=== PATIENT | female | born 1945 | race Caucasian/White ===

== ENCOUNTER 2016-06-09 09:48 | Inpatient (IN) | payer OTHER ==
[~2016-06-09] VITALS: Ht 165.1 cm; Wt 95.7 kg
[~2016-06-09 09:48] MED LIST: ASPI81TA28 PO; CALC500C70 PO; ERGO1CAP35 PO; EZET10TA38 PO; FAMO40TA6 PO; FMR25 PO; LISI-729 PO; MELO15TA3 PO; METF500T5 PO; [UNRECOGNIZED DRUG - OTHER]
[2016-06-09 11:20] VITALS: BP 151/85; PULSE 87; TEMP 36.7; O2SAT 96; Ht 165.1 cm; Wt 95.7 kg
[2016-06-09] MEDS ORDERED: NITROGLYCERIN 0.4 MG SL PER TAB CHARGE SL PRN (12:45)
[2016-06-09] MEDS ORDERED: MAGNESIUM HYDROXIDE SUSP 30 ML UDC PO PRN (12:45)
[2016-06-09] MEDS ORDERED: ALUMINUM/MAGNESIUM/SIMETH (MAALOX MAX) 30 ML UDC PO PRN (12:45)
[2016-06-09] MEDS ORDERED: ONDANSETRON INJ 2 MG/ML 2 ML VIAL IV PRN (12:45)
[2016-06-09] MEDS ORDERED: ACETAMINOPHEN 325 MG TAB PO PRN (12:45)
[2016-06-09] MEDS ORDERED: POLYETHYLENE (MIRALAX) 17 GM PACK PO PRN (12:45)
[2016-06-09] MEDS ORDERED: DEXTROSE 50% 50 ML SYR IV PRN (13:00)
[2016-06-09] MEDS ORDERED: GLUCOSE 40% GEL 15 GM TUBE PO PRN (13:00)
[2016-06-09] MEDS ORDERED: GLUCAGON FOR INJ 1 MG VIAL SQ PRN (13:00)
[2016-06-09] MEDS ORDERED: GLUCOSE 10 TABS/TUBE PO PRN (13:00)
[2016-06-09 13:43] LABS: HEMATOCRIT 39.9 % (37-47); MEAN CORPUSCULAR HEMOGLOBIN 29.1 pg (25-34); MEAN CORPUSCULAR HGB CONC 34.6 g/dl (32-36); MEAN PLATELET VOLUME 9.4 fL (7.4-10.4); PLATELET COUNT 178 K/uL (130-400); RED BLOOD COUNT 4.75 M/uL (4.2-5.4); WHITE BLOOD COUNT 6.16 K/uL (4.8-10.8)
[2016-06-09 14:07] LABS: BLOOD UREA NITROGEN 24 mg/dl (7-18); BUN/CREATININE RATIO 28.5 (10-20); CALCIUM 9.5 mg/dl (8.5-10.1); CARBON DIOXIDE 25 mmol/L (21-32); CHLORIDE 100 mmol/L (98-107); CREATININE 0.86 mg/dl (0.60-1.20); GLUCOSE 213 mg/dl (70-99); POTASSIUM 3.7 mmol/L (3.5-5.1); SODIUM 137 mmol/L (136-145)
[2016-06-09 14:26] LABS: CKMB/CK RATIO 2.8 (0-3.0)
--- NOTE | 2016-06-09 15:22 | History and Physical ---
History & Physical Date & Time of Service: Jun 09, 2016 at 15:18 Chief Complaint: Congestive Heart Failure, Nstemi Primary Care Physician: Jarocho Guadarrama M.D. History of Present Illness Source: patient, other ([facility] Records) Ms. Ramirez is a 70 y/o female with PMHx of HTN, HLD, T2DM, R Breast CA S/P R Mastectomy and Stem Cell Transplant, and RLL Lung Nodule who is a direct admission from [facility] after treatment for acute CHF and NSTEMI. Patient reports she has had [place] that has been ongoing for several months ( February) however symptoms worsened recently and she was evaluated. She was initially treated for ongoing URI symptoms with Augmentin however symptoms did not improve. Patient reports an outpatient stress test performed by Dr. Hoover on 06/04 with [facility] but is unsure of results. She reports that this SOB was exertional and relieved with rest. EMS was called and she was taken to [facility]. She took two 81 mg ASA prior to EMS and EMS treated her with NTG SL x 1. Per patient she felt almost complete relief after Lasix administration. She did not notice a difference with the NTG. She states "everything let loose" and her breathing improved. She currently feels at her baseline upon presentation to [facility]. Per [place] records: Troponins were trended revealing 1.47, 2.12, 1.83, 1.59, and 0.07. EKG significant for lateral T wave inversions but no evidence of ST elevations. CXR significant for vascular congestion and pulmonary edema with small L and tiny R pleural effusions (06/06). Repeat CXR (06/07) revealing improvement in congestion. BNP at 584. D-Dimer elevated at 520 and CTA performed without evidence of pulmonary embolism but notes interlobular septal thickening and increased pleural fluid and interval increase in upper pericardial fluid in prevascular region. Chest imaging confirmed presence of 12 mm RLL nodule that she follows with Dr. Peters for and just recently had this evaluated. She is noted to be hyperglycemic with A1c of 8.8. She reports PCP aware and plan to implement further intervention in future. Stress test results requested and information as follows: anterior and lateral wall ischemia with focal apical infarction with mixture of ischemia and focal infarct of inferior wall and recommends catheterization. She was initiated on a beta catarino, Plavix , and statin prior to arrival. Upon arrival to [facility]: Patient reports that she has been CP free. She feels that her breathing has markedly improved and feels at her baseline since institution of Lasix. Initial troponin on arrival of 0.553. CXR repeated without evidence of failure or pleural effusions. Family History Diabetes mellitus Hypertension Social History Smoking Status: Former Smoker Smokeless Tobacco Use: No Alcohol Use: none Drug Use: none Immunizations History of Influenza Vaccine: Unknown History of Tetanus Vaccine?: Yes History of Pneumococcal: Unknown History of Hepatitis B Vaccine: Unknown Multi-Drug Resistant Organisms History of MDRO: No Allergies Coded Allergies: No Known Allergies (Verified , 06/02/02) Home Medications Scheduled Aspirin (Aspirin Ec), 81 MG PO DAILY Calcium/Vitamin D (Os-Mirza 500 Plus D), 1,600 MG PO DAILY Ergocalciferol (Vitamin D Cap), 50,000 INTER.UNIT PO WK Ezetimibe/Simvastatin (Vytorin 10MG/20MG), 1 TAB PO QPM Famotidine (Pepcid), 40 MG PO QD L-Methylfol/Vitb2/Vitb6/Vitb12 (Metanx), 2 TABLETS QD@08 Letrozole (Femara), 2.5 MG PO QD@08 Meloxicam (Mobic), 15 MG PO DAILY Metformin Hcl Er (Glucophage Er), 500 MG PO TID Miscellaneous Medications Lisinopril (Prinivil), 5 MG PO Review of Systems Constitutional: No chills, No fever Eyes: No worsening of vision ENT: No nasal symptoms, No sore throat, No trouble swallowing Respiratory: + dyspnea on exertion (improved), No dyspnea at rest Cardiovascular: + chest pain (Resolved - midsternal pressure) Abdomen: No constipation, No diarrhea, No nausea, No pain, No vomiting Musculoskeletal: No calf pain, No swelling Genitourinary - Female: No dysuria Neurologic: No vertigo, No weakness Hematologic / Lymphatic: No abnormal bleeding/bruising, No clotting problems Integumentary: No rash Physical Exam Vital Signs Date Time Temp Pulse Resp B/P Pulse Ox O2 Delivery O2 Flow Rate FiO2 06/09/16 11:20 36.7 87 16 151/85 96 Room Air General Appearance: WD/WN, no apparent distress Head: normocephalic, atraumatic Eyes: sclerae normal ENT: hearing grossly normal Neck: supple, no JVD, trachea midline Respiratory/Chest: lungs clear, normal breath sounds, no respiratory distress, no accessory muscle use Cardiovascular: regular rate, rhythm, no gallop, no murmur Abdomen/GI: normal bowel sounds, non tender, soft Back: normal inspection, no CVA tenderness Extremities/Musculoskelatal: no calf tenderness, no pedal edema Neurologic/Psych: no motor/sensory deficits, alert, oriented x 3 Skin: normal color, warm/dry Diagnostics Laboratory Results Results Past 24 Hours Test 06/09/16 13:15 06/09/16 13:20 Range/Units Total Creatine Kinase 36 26-192 U/L Creatine Kinase MB 1.0 0.5-3.6 ng/ml Creatine Kinase MB Ratio 2.8 0-3.0 Troponin I 0.553 0-0.045 ng/ml White Blood Count 6.16 4.8-10.8 K/uL Red Blood Count 4.75 4.2-5.4 M/uL Hemoglobin 13.8 12.0-16.0 g/dL Hematocrit 39.9 37-47 % Mean Corpuscular Volume 84.0 80-100 fL Mean Corpuscular Hemoglobin 29.1 25-34 pg Mean Corpuscular Hemoglobin Concent 34.6 32-36 g/dl RDW Standard Deviation 40.4 36.4-46.3 fL RDW Coefficient of Variation 13.3 11.5-14.5 % Platelet Count 178 130-400 K/uL Mean Platelet Volume 9.4 7.4-10.4 fL Sodium Level 137 136-145 mmol/L Potassium Level 3.7 3.5-5.1 mmol/L Chloride Level 100 98-107 mmol/L Carbon Dioxide Level 25 21-32 mmol/L Anion Gap 12.0 3-11 mmol/L Blood Urea Nitrogen 24 7-18 mg/dl Creatinine 0.86 0.60-1.20 mg/dl Estimated GFR () 79.3 Estimated GFR (Non- 68.4 BUN/Creatinine Ratio 28.5 10-20 Random Glucose 213 70-99 mg/dl Calcium Level 9.5 8.5-10.1 mg/dl Impression Assessment and Plan Ms. Ramirez is a 70 y/o female with PMHx of HTN, HLD, T2DM, R Breast CA S/P R Mastectomy and Stem Cell Transplant, and RLL Lung Nodule who is a direct admission from [facility] after treatment for acute CHF and NSTEMI. Acute Congestive Heart Failure and NSTEMI and H/O HTN: No Documented H/O CHF - Appears acute CHF resulting from NSTEMI - was diuresed in [place] - CXR - image and report reviewed - no evidence of failure or pleural effusions - Requested outpatient stress by Dr. Hoover - report reviewed - EKG negative but nuclear imaging showing anterior and lateral wall ischemia with focal apical infarction and mixture of ischemia and focal infarct of inferior wall - Was receiving Lasix but will withhold further Lasix as exam without fluid overload - can initiate upon further evaluation - ASA 81 mg daily and Plavix 75 mg daily - Atorvastatin 40 mg daily - Carvedilol 3.125 mg BID and Lisinopril 10 mg daily - Trend cardiac enzymes - peaked at 2.12 but trending down -- Initial trop at 0.553 per our lab - Cardiology consulted - spoke with Dr. Amaya - heart catheterization? -- Will place NPO at midnight except medications T2DM: HbA1c 8.8 - Patient reports PCP is aware and is planning of making adjustments - Hold Metformin due to CTA in [place] and possible Cath - SSI R Breast CA S/P R Mastectomy: - Femara 2.5 mg daily - non-formulary and patient may take own med DVT Prophylaxis: - TEDs/SCDs Code Status: - FULL RESUSCITATION Disposition: - Possible catheterization Level of Care Telemetry Advanced Directives Existing Living Will: No Existing Power of Oleomargarine Maker: No Resuscitation Status FULL RESUSCITATION VTE Prophylaxis VTE Risk Assessment Done? Y/N: Yes Risk Level: Moderate Given or contraindicated: T.E.D. Stockings, SCD's Reviewed: Pt Seen/Exam by Me, RN Notes, HO Notes, Prior Records, Labs, EKG History I agree with PA note Ms. Ramirez is a 70 y/o female with PMHx of HTN, HLD, T2DM, R Breast CA S/P R Mastectomy and Stem Cell Transplant, and RLL Lung Nodule who is a direct admission from [facility] after treatment for acute CHF and NSTEMI. Constitutional: denies: chills Respiratory: negative: cough Cardiovascular: denies chest pain Gastrointestinal/Abdominal: negative: abdominal pain Genitourinary: negative discharge Skin: negative: change in color Neurological/Psych: negative: anxiety Hematologic/Lymphatic: negative: anemia General Appearance: WD/WN, no apparent distress Eye Exam: bilateral eye normal inspection Ears, Nose, Throat: hearing grossly normal Neck: non-tender Respiratory: chest non-tender, normal breath sounds Cardiovascular: no edema, no gallop Gastrointestinal: normal bowel sounds Extremities: normal range of motion Neurologic/Psychiatric: alert Skin Characteristics: normal color Assessment/Plan Ms. Ramirez is a 70 y/o female with PMHx of HTN, HLD, T2DM, R Breast CA S/P R Mastectomy and Stem Cell Transplant, and RLL Lung Nodule who is a direct admission from [facility] after treatment for acute CHF and NSTEMI. Acute Congestive Heart Failure and NSTEMI and hx HTN: No Documented hx CHF CXR - image and report reviewed - no evidence of failure or pleural effusions Requested outpatient stress by Dr. Hoover - report reviewed - EKG negative but nuclear imaging showing anterior and lateral wall ischemia with focal apical infarction and mixture of ischemia and focal infarct of inferior wall Noted chest discomfort improved after a dose of lasix cont ASA 81 mg daily and Plavix 75 mg daily cont Atorvastatin 40 mg daily cont Carvedilol 3.125 mg BID and Lisinopril 10 mg daily cont Trend cardiac enzymes, peaked at 2.12 but trending down, now 0.553 per our lab Cardiology consulted, spoke with Dr. Amaya, heart catheterization in am NPO at midnight except medications T2DM: HbA1c 8.8 Patient reports PCP is aware and is planning of making adjustments Hold Metformin due to CTA in [place] and possible Cath SSI Right Breast CA S/P R Mastectomy: cont Femara 2.5 mg daily - non-formulary and patient may take own med DVT Prophylaxis: TEDs/SCDs Code Status: FULL RESUSCITATION Disposition: Possible catheterization total time 50 min case discussed with KASSIE Paredes
--- NOTE | 2016-06-09 15:55 | DIAGNOSTIC IMAGING REPORT ---
CHEST 2 VIEWS ROUTINE CLINICAL HISTORY: CHF; Dyspnea COMPARISON STUDY: 05/13/2016 FINDINGS: Postthoracotomy changes are present on the left. There are left paramediastinal fibrotic changes. There is no failure. There is no acute parenchymal consolidation. Surgical clips project over the right axillary region. The patient appears be status post a prior right mastectomy. There are no pleural effusions. There are postsurgical changes of a left shoulder reverse total arthroplasty[ IMPRESSION: Postsurgical change. No acute findings. Electronically signed by: Vargas Peña M.D. 06/09/2016 3:54 PM Dictated Date/Time: 06/09/2016 3:51 PM
[2016-06-09 16:00] VITALS: BP 121/96; PULSE 82; TEMP 36.9; O2SAT 98
[2016-06-09] MEDS: FAMOTIDINE 20 MG TAB PO SCH (16:41)
[2016-06-09] MEDS: INSULIN ASPART 100 UNITS/ML 3 ML PEN SC SCH ×2 (16:44→21:15)
[2016-06-09] MEDS ORDERED: ALBUT/IPRATROP 3MG/0.5MG NEB 3 ML VIAL INH PRN (17:45)
--- NOTE | 2016-06-09 18:16 | ECHOCARDIOGRAM REPORT ---
*NOTICE TO RECEIVING CONSTITUTION PARTY AGENCY This information is strictly Confidential and protected under [place] law. [place] law prohibits you from making any further disclosure of this information unless further disclosure is expressly permitted by the written consent of the person to whom it pertains or is authorized by law. A general authorization for the release of medical or other information is not sufficient for this purpose. Hospital accepts no responsibility if the information is made available to any other person, INCLUDING THE PATIENT. Interpretation Summary * Name: TARUN TOMPKINS Study Date: 06/09/2016 03:46 PM BP: 151/85 mmHg * [facility] HR: 87 * : 1945 (M/d/yyy) Gender: Female Height: 65 in * Age: 70 yrs Ethnicity: CA Weight: 210 lb * Ordering Physician: Jazzmine Craft * Performed By: Soumya Matos * * Reason For Study: CHF * BSA: 2.0 m2 * Low normal overall left ventricular systolic function. * Apical akinesis. Anterolateral, inferopaical, and inferior hypokinesis. Mid - distal septal hypokinesis to akinesis. * Mild left atrial dilatation. * Mild aortic regurgitation. * Mild mitral regurgitation. * Trace tricuspid regurgitation. * The study was technically difficult. * -- Conclusions -- * Aortic valve sclerosis moderate, without significant aortic valvular stenosis. Procedure Details * A complete two-dimensional transthoracic echocardiogram was performed (2D, M-mode, Doppler and color flow Doppler). Left Ventricle * The left ventricle is normal in size. * Moderate left ventricular hypertrophy except for more disproportionate basal septal thickening. * Ejection Fraction = 50-55%. * A full diastolic examination was done with clinical findings of Class I diastolic dysfunction. * Left ventricular systolic function is low normal. * There is apical akinesis. * Mid - distal septal severe hypokinesis to akinesis. Inferoapical hypokinesis. Mild inferior hypokinesis. Anterolateral hypokinesis. Right Ventricle * The right ventricle is normal in size and function. * The right ventricular systolic function is normal as assessed by tricuspid annular plane systolic excursion (TAPSE) (normal >1.5 cm). Atria * The left atrium is mildly dilated. * Right atrium not well visualized. * No ASD detected; PFO is not assessed. Mitral Valve * There is moderate mitral annular calcification. * Calcified mitral apparatus. * There is mild mitral regurgitation. Tricuspid Valve * The tricuspid valve is not well visualized. * Right ventricular systolic pressure is normal. * There is trace tricuspid regurgitation. Aortic Valve * The aortic valve is not well visualized. * The aortic valve is trileaflet. * Aortic valve sclerosis moderate, without significant aortic valvular stenosis. * Aortic valve area was calculated at 1.8 cm\S\2 using the continuity equation. * Mild aortic regurgitation. Pulmonic Valve * The pulmonic valve is not well visualized. * There is no significant pulmonary regurgitation. Pericardium/Pleural * Small anterior pericardial effusion. * There are no echocardiographic indications of cardiac tamponade. Great Vessels * Normal inferior vena cava diameter and respiratory variation suggests normal central venous pressure. MMode 2D Measurements and Calculations IVSd 2.4 cm IVSs 2.2 cm LVIDd 3.6 cm LVIDs 2.6 cm LVPWd 1.8 cm LVPWs 1.9 cm IVS/LVPW 1.4 FS 29.0 % EDV(Teich) 54.5 ml ESV(Teich) 23.6 ml EF(Teich) 56.6 % EDV(cubed) 46.7 ml ESV(cubed) 16.7 ml EF(cubed) 64.2 % % IVS thick -7.32 % % LVPW thick 6.7 % LV mass(C)d 351.0 grams LV mass(C)dI 173.8 grams/m\S\2 LV mass(C)s 232.6 grams LV mass(C)sI 115.2 grams/m\S\2 SV(Teich) 30.9 ml SI(Teich) 15.3 ml/m\S\2 SV(cubed) 30.0 ml SI(cubed) 14.9 ml/m\S\2 EPSS 0.87 cm ACS 1.3 cm LA dimension 4.7 cm LVOT diam 2.1 cm LVOT area 3.5 cm\S\2 LVAd ap4 26.2 cm\S\2 LVLd ap4 7.9 cm EDV(MOD-sp4) 69.8 ml EDV(sp4-el) 73.4 ml LVAs ap4 16.0 cm\S\2 LVLs ap4 6.7 cm ESV(MOD-sp4) 31.6 ml ESV(sp4-el) 32.2 ml EF(MOD-sp4) 54.8 % EF(sp4-el) 56.2 % LVAd ap2 29.4 cm\S\2 LVLd ap2 8.0 cm EDV(MOD-sp2) 87.4 ml EDV(sp2-el) 91.2 ml LVAs ap2 18.7 cm\S\2 LVLs ap2 7.3 cm ESV(MOD-sp2) 38.8 ml ESV(sp2-el) 40.6 ml EF(MOD-sp2) 55.6 % EF(sp2-el) 55.5 % LVLd %diff 1.4 % EDV(MOD-bp) 78.4 ml LVLs %diff 8.2 % ESV(MOD-bp) 35.7 ml EF(MOD-bp) 54.4 % SV(MOD-sp4) 38.2 ml SI(MOD-sp4) 18.9 ml/m\S\2 SV(MOD-sp2) 48.5 ml SI(MOD-sp2) 24.0 ml/m\S\2 SV(MOD-bp) 42.7 ml SI(MOD-bp) 21.1 ml/m\S\2 SV(sp4-el) 41.3 ml SI(sp4-el) 20.4 ml/m\S\2 SV(sp2-el) 50.7 ml SI(sp2-el) 25.1 ml/m\S\2 Doppler Measurements and Calculations MV E max adán 84.0 cm/sec MV A max adán 124.0 cm/sec MV E/A 0.68 MV dec time 0.25 sec Ao V2 max 154.9 cm/sec Ao max PG 9.6 mmHg Ao max PG (full) 7.0 mmHg ALLAN(V,A) 1.8 cm\S\2 ALLAN(V,D) 1.8 cm\S\2 AI max adán 273.4 cm/sec AI max PG 32.2 mmHg AI dec slope 139.0 cm/sec\S\2 AI P1/2t 575.9 msec LV V1 max PG 2.6 mmHg LV V1 mean PG 1.2 mmHg LV V1 max 81.1 cm/sec LV V1 mean 49.4 cm/sec LV V1 VTI 16.2 cm MR max adán 391.1 cm/sec MR max PG 62.6 mmHg SV(LVOT) 57.3 ml SI(LVOT) 28.4 ml/m\S\2 PA V2 max 107.8 cm/sec PA max PG 4.7 mmHg TR max adán 240.5 cm/sec
[2016-06-09 18:20] LABS: CKMB/CK RATIO 2.7 (0-3.0)
[2016-06-09 20:00] VITALS: BP 115/66; PULSE 85; TEMP 36.7; O2SAT 94
[2016-06-09] MEDS: CARVEDILOL 3.125 MG TAB PO SCH (21:13)
--- NOTE | 2016-06-09 22:46 | CARDIOLOGY CONSULTATION ---
DATE OF CONSULTATION: 06/09/2016 PRIMARY PHYSICIAN: Jarocho Conrad M.D. ATTENDING AND REFERRING PHYSICIAN: Bridger Toth MD CONSULTATION: Rg Amaya MD HISTORY OF PRESENT ILLNESS: The patient was admitted to [facility] on 06/06/2016 with acute congestive heart failure. She received intravenous furosemide. Approximately 30 minutes after receiving furosemide, her dyspnea markedly improved and then resolved. The patient states that she had woken up that morning from sleep, feeling very short of breath and a sensation of severe retrosternal chest tightness. No associated diaphoresis or nausea. No radiation of the discomfort. The total duration of the discomfort was approximately 2 hours. The chest tightness resolved when her dyspnea resolved. This was following administration of intravenous furosemide. She states that since resolution on 06/07/2016, she has had no further dyspnea, orthopnea, PND, or chest tightness. The patient states that she has no prior history of any heart disease. She states that every year, she does get an acute bronchitis. She developed symptoms consistent with an acute bronchitis in March 2016. She states she received a course of oral prednisone. This had no significant effect on her symptoms. She states in April, she had a course of antibiotics with Augmentin. This helped her cough and symptoms of bronchitis. She had a productive cough at that time. In May, she started to notice worsening dyspnea. Normally, she has no dyspnea with her normal activities. She had gotten to develop dyspnea walking up only one flight of stairs. This would sometimes be associated with mild chest tightness. Because of these symptoms, she underwent both pulmonary function tests as well as a Lexiscan nuclear stress test. She does not know the results of pulmonary function tests. They are not available at the time of this dictation. She did undergo the Lexiscan on June 04. The report is available. It reports evidence of anterior, lateral, and inferior ischemia. Also, evidence of focal infarction in inferior wall and focal apical infarction. The left ventricular ejection fraction was calculated at 37%. After admission to [facility], the cardiac enzymes were elevated. The peak troponin I was 2.12. Her BNP was elevated at 584. A CT scan of the chest revealed evidence of congestive heart failure. There is no evidence of a pulmonary embolus. As stated above, she has had no further complaints of any dyspnea or chest discomfort after receiving the intravenous furosemide in the Emergency Department at [facility]. She was subsequently placed on oral furosemide. She denies any baseline orthopnea or PND. She usually sleeps with 2 pillows. No peripheral edema. She has not noted any significant weight gain over the past few weeks. No increased abdominal girth. She claims that she has a relatively low-sodium diet. CAD risk factors include hypertension, type 2 diabetes mellitus, and dyslipidemia. She smoked cigarettes for approximately 10 years from age 30 to age 40. She smoked up to 1/2 pack a day. There is no family history of premature coronary artery disease. PAST MEDICAL HISTORY: 1. Hypertension. 2. Dyslipidemia. 3. Type 2 diabetes mellitus. 4. Status post right mastectomy approximately 25 years ago. Metastatic disease to lungs approximately 5 years later. It was not accessible by surgery. She subsequently underwent chemotherapy followed by stem cell transplant. She also received adjuvant radiation therapy. She now has a 12-mm right lower lobe nodule, which is being followed by Dr. Peters of the [facility] at [facility]. PAST SURGICAL HISTORY: 1. Status post right mastectomy. 2. Status post repair of a left humeral fracture. 3. Status post bilateral cataract surgery. SOCIAL HISTORY: The patient is single. No children. She does not smoke cigarettes. Very rare use of alcohol. Approximately, 2 alcoholic beverages per year. FAMILY HISTORY: No family history of premature coronary artery disease. Her mother of cancer at age 55. Her father at approximately age 80 from unspecified heart disease. REVIEW OF SYSTEMS: 1. No current HEENT complaints other than farsightedness. 2. Occasional cough. 3. Good appetite. No abdominal pain or nausea. 4. No urinary complaints. 5. No cerebrovascular complaints. 6. No claudication-type complaints. 7. Chronic low back pain. Worse with prolonged walking. 8. No skin rash complaints. 9. No fevers or chills. CURRENT MEDICATIONS: Aspirin 81 mg daily, lisinopril 10 mg daily, clopidogrel 75 mg daily, atorvastatin 40 mg daily, letrozole 2.5 mg daily, carvedilol 3.125 mg b.i.d., famotidine 40 mg daily, NovoLog sliding scale insulin, and several p.r.n. medications. ALLERGIES AND ADVERSE DRUG REACTIONS: None. Specifically, no history of any contrast dye allergy. PHYSICAL EXAMINATION: GENERAL: The patient is sitting up at her bedside. No distress. VITAL SIGNS: Vital signs this afternoon were oral temperature 36.9, pulse 82, blood pressure 121/96, pulse oximetry in room air 98%. NECK: No jugular venous distension. Carotids, 2/2 bilaterally. Normal upstroke. No bruits. HEAD: Normal. EYES: Pupils equal and round. Anicteric. Conjunctivae normal. LUNGS: Normal respiratory effort. Clear. No rales or wheezes. HEART: PMI normal. No lifts or heaves. Regular rate and rhythm. S1, S2 normal. A 2/6 systolic murmur at second intercostal space in the left lower sternal border. No diastolic murmur or rub. ABDOMEN: Soft. Nontender. No palpable masses or organomegaly. No bruits. EXTREMITIES: No pretibial edema. No cyanosis or clubbing. NEUROLOGIC: Alert and oriented x3. Motor grossly intact. PSYCHIATRIC: Affect is normal. PULSES: Distal pulses strongly palpable in all extremities. DATA: Electrocardiogram reveals normal sinus rhythm, inferior infarct, anterior infarct, T-wave inversions in leads 1, aVL, V2-V6, consistent with ischemia. Compared to a prior electrocardiogram performed in April of 1997 at [facility], criteria for anterior and inferior AR now present. T-inversion now present. Chest x-ray performed today reveals no evidence of heart failure. No new infiltrates. No pleural effusions. LABORATORY DATA: Reveal WBC 6.16, hemoglobin 13.8, hematocrit 39.9, platelet count 178. Metabolic profile was sodium 137, potassium 3.7, chloride 100, carbon dioxide 25, BUN 24, creatinine 0.96, random glucose 213. CK total 36 with MB of 1.0. Troponin I 0.553. Repeat CK total 37 with MB of 1.0. Repeat troponin I is pending. ASSESSMENT: 1. Status post non-ST elevation myocardial infarction. 2. Status post episode of acute congestive heart failure. She has low normal overall left ventricular systolic function on echo today. Ejection fraction 50%-55%. The congestive heart failure is likely secondary to acute diastolic heart failure. She has evidence of LV diastolic dysfunction on echo. She has significant left ventricular hypertrophy. 3. Her CT scan of the chest performed at [facility] revealed marked coronary artery calcifications. She has evidence of both inferior and anterior AR on her electrocardiogram. Her echo shows wall motion abnormalities in the apex, inferior apex, anteroseptal, and anterolateral segments. Her recent Lexiscan showed evidence of multivessel coronary artery ischemia. The patient likely has significant underlying coronary artery disease. 4. No current evidence, on exam, of congestive heart failure. 5. No cerebrovascular or peripheral vascular complaints. 6. Prerenal azotemia, secondary to recent diuresis. RECOMMENDATIONS: 1. Diagnostic cardiac catheterization on June 10. We will attempt to perform this via right radial artery access. The procedure, risk, benefits, and alternatives of cardiac catheterization and coronary intervention were extensively discussed with the patient. She is agreeable to undergoing the procedure. She is aware of the nature of the [facility] PCI program with offsite CABG surgical backup. 2. N.p.o. after 12:00 midnight tonight. We will give her low dose intravenous fluids overnight to maintain hydration. 3. Hold clopidogrel in a.m. The patient may have coronary artery disease, which requires CABG surgery. It is preferable that clopidogrel be held at least 5 days prior to undergoing non-emergent CABG surgery. 4. Continue carvedilol and lisinopril. 5. Would increase atorvastatin to 80 mg daily. 6. Continue aspirin. Thank you for asking me to see this patient in cardiology consultation.
[2016-06-09 23:44] LABS: CKMB/CK RATIO 2.7 (0-3.0)
[2016-06-09] MEDS: SODIUM CHLORIDE 0.9% 1000ML 1,000 ML IV SCH (23:52)
[2016-06-10] VITALS (36 sets, daily range): BP systolic 83–140; BP diastolic 42–83; PULSE 63–99; TEMP 36.7–37; O2SAT 91–99
[2016-06-10 05:35] LABS: BASO % 0.2 %; BASO ABS # 0.01 K/uL (0-0.2); COMPLETE YES; EOS % 1.5 %; HEMATOCRIT 39.1 % (37-47); IG% 0.3 %; LYMPH ABS # 1.58 K/uL (1.2-3.4); MEAN CELL VOLUME 84.6 fL (80-100); MEAN CORPUSCULAR HGB CONC 34.3 g/dl (32-36); MEAN PLATELET VOLUME 9.2 fL (7.4-10.4); MONO % 8.2 %; NEUT % 62.8 %; PLATELET COUNT 157 K/uL (130-400); RED BLOOD COUNT 4.62 M/uL (4.2-5.4); WHITE BLOOD COUNT 5.85 K/uL (4.8-10.8)
[2016-06-10 05:46] LABS: PROTHROMBIN TIME (PATIENT) 11.2 SECONDS (9.0-12.0)
[2016-06-10 06:01] LABS: BUN/CREATININE RATIO 25.3 (10-20); CALCIUM 8.6 mg/dl (8.5-10.1); CREATININE 0.94 mg/dl (0.60-1.20); POTASSIUM 3.7 mmol/L (3.5-5.1)
--- NOTE | 2016-06-10 08:05 | Clinical Documentation Query ---
Virgil ANGELIKAMARGO : CLINICAL DOCUMENTATION QUERY Patient is a 70 year old female admitted for treatment of acute CHF and NSTEMI. Echocardiogram demonstrated a low normal left ventricular systolic function with evidence of diastolic dysfunction. In future progress notes, please explicitly specify the type of CHF experienced by your patient as this directly affects DRG assignment. She was treated with IV Lasix with improvement in her shortness of breath and chest tightness, is being monitored on telemetry, and is to undergo cardiac catheterization this a.m. In your clinical opinion is this patient being managed for: ( x ) Acute diastolic congestive heart failure ( ) Other explanation of clinical findings (Please Explain) ( ) Unable to determine (Please Define) ( ) Need to Discuss ( ) Not Agree The medical record reflects the following clinical findings, treatment, and risk factors. Clinical Indicators: As above Treatment:She was treated with IV Lasix with improvement in her shortness of breath and chest tightness, is being monitored on telemetry, and is to undergo cardiac catheterization this a.m. Risk Factors: Hypertension, NSTEMI, likely CAD Please clarify and document your clinical opinion in the progress notes and discharge summary. Terms such as "probable", "suspected", "likely", "questionable", "possible", or "still to be ruled out" are acceptable. IF IN AGREEMENT, YOU MUST DOCUMENT ABOVE DIAGNOSTIC STATEMENT IN DAILY PROGRESS NOTES AND DISCHARGE SUMMARY. This document is not part of the patient's record. Thank You, Christiano Joel, CECELIA [phone]
[2016-06-10] MEDS: ASPIRIN 81 MG ECTAB PO SCH (08:49)
[2016-06-10] MEDS: FAMOTIDINE 20 MG TAB PO SCH (08:50)
[2016-06-10] MEDS: LETROZOLE 2.5 MG TAB PO SCH (08:50)
[2016-06-10] MEDS: LISINOPRIL 10 MG TAB PO SCH (08:50)
[2016-06-10] MEDS: ATORVASTATIN 40 MG TAB PO SCH (08:50)
[2016-06-10] MEDS: CARVEDILOL 3.125 MG TAB PO SCH ×2 (08:50→20:37)
[2016-06-10] MEDS: INSULIN ASPART 100 UNITS/ML 3 ML PEN SC SCH ×4 (08:55→21:36)
[2016-06-10] MEDS ORDERED: ATORVASTATIN 40 MG TAB PO SCH (09:00)
[2016-06-10] MEDS ORDERED: CLOPIDOGREL BISULFATE 75 MG TAB PO SCH (09:00)
--- NOTE | 2016-06-10 11:48 | Procedure Note ---
Pre-Mod Sedation Assessment General Date of Moderate Sedation: Jun 10, 2016. Vital Signs: Vital Signs Past 12 Hours Date Time Temp Pulse Resp B/P Pulse Ox O2 Delivery O2 Flow Rate FiO2 06/10/16 08:00 97 Room Air 06/10/16 08:00 63 18 129/83 93 Room Air 06/10/16 04:00 Room Air 06/10/16 04:00 36.7 75 18 123/64 98 Room Air 06/10/16 00:01 Room Air 06/10/16 00:01 36.8 86 22 83/60 98 Room Air 98/42 Review Cardiovascular: regular rate, rhythm, no edema, normal peripheral pulses, + systolic murmur Abdomen: normal bowel sounds, non tender, soft Lungs: lungs clear Pre-Sedation Airway Assessment Oral Cavity: WNL Able to Visualize Vocal Cords: No Short Thick Neck: No Hx of Sleep Apnea: No Smoking Status: Former Smoker Mallampati Classification: Class III ASA Classification: Class II Procedure Planning Contraindications-for Mod Sed: None Yes Notes The planned sedation has been discussed with the patient and consent obtained. I have identified the patient, determined the appropriateness of sedation and have assessed the patient immediately prior to the procedure. All medicine(s) and interventions are by my order.
[2016-06-10] MEDS ORDERED: NiCARDipine HCL INJ 2.5 MG/ML 10 ML AMP ONE (11:51)
[2016-06-10] MEDS ORDERED: FENTANYL CITRATE INJ 50 MCG/1 ML 2 ML VIAL ONE (11:52)
[2016-06-10] MEDS ORDERED: NITROGLYCERIN/D5W 100MCG/ML 20ML SYR ONE (11:52)
[2016-06-10] MEDS ORDERED: MIDAZOLAM HCL 1 MG/ML 2ML VIAL ONE (11:52)
[2016-06-10] MEDS ORDERED: HEPARIN SOD (PORCINE) 1000 UNIT/ML 10 ML VIAL ONE (11:54)
[2016-06-10] MEDS ORDERED: LIDOCAINE HCL 1% 20 ML VIAL ONE (12:57)
[2016-06-10] MEDS ORDERED: LIDOCAINE/EPINEPHRINE 1% 20 ML VIAL ONE (13:02)
--- NOTE | 2016-06-10 13:43 | Progress Note ---
Subjective Date of Service: Jun 10, 2016. (Jazzmine Craft PA-C) Date of Service: 06/10/16 denies complains, no cp, no sob, had cath today (Bridger Toth MD) Subjective Pt evaluation today including: conversation w/ patient, physical exam, chart review, lab review, review of studies, review of inpatient medication list Patient seen and evaluated. No acute events overnight. Trops trending down. Patient is resting in bed. Plan for catheterization today. Patient is nervous about procedure. No further CP or SOB reported. Verbalizes no other complaints at this time. (Jazzmine Craft PA-C) Pt evaluation today including: conversation w/ patient, physical exam, chart review, review of studies, review of inpatient medication list (Bridger Toth MD) Review of Systems Constitutional: No chills, No fever Respiratory: + cough, No shortness of breath Cardiac: No chest pain, No palpitations Abdomen: No constipation, No diarrhea, No nausea, No pain, No vomiting Female : No dysuria Skin: No new/changing skin lesions, No rash (Jazzmine Craft PA-C) Constitutional: No fever ENT: No hearing loss Respiratory: No cough Cardiac: No chest pain Abdomen: No pain Female : No dysuria Neurologic: No memory loss Psychiatric: No depression symptoms Endo: No fatigue (Bridger Toth MD) Medications Current Inpatient Medications Medications (Trade) Dose Ordered Sig/Jaziel Route Start Time Stop Time Status Last Admin Dose Admin Acetaminophen (Tylenol Tab) 650 mg Q4H PRN PO 06/09/16 12:45 07/09/16 12:44 Al Hydrox/Mg Hydrox/Simethicone (Maalox Max Susp) 15 ml Q4H PRN PO 06/09/16 12:45 07/09/16 12:44 Magnesium Hydroxide (Milk Of Magnesia Susp) 30 ml Q12H PRN PO 06/09/16 12:45 07/09/16 12:44 Ondansetron HCl (Zofran Inj) 4 mg Q6H PRN IV 06/09/16 12:45 07/09/16 12:44 Nitroglycerin (Nitrostat Tab) 0.4 mg UD PRN SL 06/09/16 12:45 07/09/16 12:44 Polyethylene (Miralax Powder Packet) 17 gm DAILY PRN PO 06/09/16 12:45 07/09/16 12:44 Aspirin (Ecotrin Tab) 81 mg DAILY PO 06/10/16 09:00 07/10/16 08:59 06/10/16 08:49 81 MG Famotidine (Pepcid Tab) 40 mg DAILY PO 06/09/16 13:00 07/09/16 12:59 06/10/16 08:50 40 MG Lisinopril (Zestril Tab) 10 mg DAILY PO 06/10/16 09:00 07/10/16 08:59 06/10/16 08:50 10 MG Insulin Aspart (novoLOG ASPART) SLIDING SCALE G... ACHS SC 06/09/16 16:00 07/09/16 15:59 06/10/16 08:55 2 UNITS Carvedilol (Coreg Tab) 3.125 mg BID PO 06/09/16 21:00 07/09/16 20:59 06/10/16 08:50 3.125 MG Glucose (Glucose 40% Gel) 15-30 GRAMS 15 GRAMS... UD PRN PO 06/09/16 13:00 07/09/16 12:59 Glucose (Glucose Chew Tab) 4-8 Tablets 4 Tabl... UD PRN PO 06/09/16 13:00 07/09/16 12:59 Dextrose (Dextrose 50% 50ML Syringe) 25-50ML OF 50% DW IV FOR... UD PRN IV 06/09/16 13:00 07/09/16 12:59 Glucagon (Glucagon Inj) 1 mg UD PRN SQ 06/09/16 13:00 07/09/16 12:59 Letrozole (Femara Tab) 2.5 mg DAILY PO 06/10/16 09:00 07/10/16 08:59 06/10/16 08:50 2.5 MG Albuterol/ Ipratropium 3 ml 3 ml Q2H PRN INH 06/09/16 17:45 07/09/16 17:44 Sodium Chloride (Nss 1000ml) 1,000 ml @ 75 mls/hr [id number] IV 06/10/16 00:30 07/10/16 00:29 06/09/16 23:52 75 MLS/HR Atorvastatin Calcium (Lipitor Tab) 80 mg QAM PO 06/10/16 09:00 07/10/16 08:59 06/10/16 08:50 80 MG (Jazzmine Craft, HAILEE) Current Inpatient Medications Medications (Trade) Dose Ordered Sig/Jaziel Route Start Time Stop Time Status Last Admin Dose Admin Al Hydrox/Mg Hydrox/Simethicone (Maalox Max Susp) 15 ml Q4H PRN PO 06/09/16 12:45 07/09/16 12:44 Magnesium Hydroxide (Milk Of Magnesia Susp) 30 ml Q12H PRN PO 06/09/16 12:45 07/09/16 12:44 Nitroglycerin (Nitrostat Tab) 0.4 mg UD PRN SL 06/09/16 12:45 07/09/16 12:44 Polyethylene (Miralax Powder Packet) 17 gm DAILY PRN PO 06/09/16 12:45 07/09/16 12:44 Aspirin (Ecotrin Tab) 81 mg DAILY PO 06/10/16 09:00 07/10/16 08:59 06/10/16 08:49 81 MG Famotidine (Pepcid Tab) 40 mg DAILY PO 06/09/16 13:00 07/09/16 12:59 06/10/16 08:50 40 MG Lisinopril (Zestril Tab) 10 mg DAILY PO 06/10/16 09:00 07/10/16 08:59 06/10/16 08:50 10 MG Insulin Aspart (novoLOG ASPART) SLIDING SCALE G... ACHS SC 06/09/16 16:00 07/09/16 15:59 06/10/16 16:36 2 UNITS Carvedilol (Coreg Tab) 3.125 mg BID PO 06/09/16 21:00 07/09/16 20:59 06/10/16 08:50 3.125 MG Glucose (Glucose 40% Gel) 15-30 GRAMS 15 GRAMS... UD PRN PO 06/09/16 13:00 07/09/16 12:59 Glucose (Glucose Chew Tab) 4-8 Tablets 4 Tabl... UD PRN PO 06/09/16 13:00 07/09/16 12:59 Dextrose (Dextrose 50% 50ML Syringe) 25-50ML OF 50% DW IV FOR... UD PRN IV 06/09/16 13:00 07/09/16 12:59 Glucagon (Glucagon Inj) 1 mg UD PRN SQ 06/09/16 13:00 07/09/16 12:59 Letrozole (Femara Tab) 2.5 mg DAILY PO 06/10/16 09:00 07/10/16 08:59 06/10/16 08:50 2.5 MG Albuterol/ Ipratropium 3 ml 3 ml Q2H PRN INH 06/09/16 17:45 07/09/16 17:44 Sodium Chloride (Nss 1000ml) 1,000 ml @ 75 mls/hr [id number] IV 06/10/16 00:30 07/10/16 00:29 06/10/16 13:50 75 MLS/HR Atorvastatin Calcium (Lipitor Tab) 80 mg QAM PO 06/10/16 09:00 07/10/16 08:59 06/10/16 08:50 80 MG Acetaminophen 650 mg 650 mg Q4H PRN PO 06/10/16 14:30 07/10/16 14:29 Sodium Chloride (Nss 1000ml) 250 ml @ 999 mls/hr Q16M PRN IV 06/10/16 14:21 07/10/16 14:20 Atropine Sulfate (Atropine Sulfate 0.1MG/Ml Inj) 0.6 mg PRN PRN IV 06/10/16 14:30 07/10/16 14:29 Ondansetron HCl (Zofran Inj) 4 mg Q6H PRN IV 06/10/16 14:30 07/10/16 14:29 (Bridger Toth MD) Objective Vital Signs Date Time Temp Pulse Resp B/P Pulse Ox O2 Delivery O2 Flow Rate FiO2 06/10/16 08:00 97 Room Air 06/10/16 08:00 63 18 129/83 93 Room Air 06/10/16 04:00 Room Air 06/10/16 04:00 36.7 75 18 123/64 98 Room Air 06/10/16 00:01 Room Air 06/10/16 00:01 36.8 86 22 83/60 98 Room Air 98/42 06/09/16 20:00 36.7 85 18 115/66 94 Room Air 06/09/16 20:00 Room Air 06/09/16 16:00 Room Air 06/09/16 16:00 36.9 82 16 121/96 98 Room Air (Jazzmine Craft PA-C) Physical Exam General Appearance: WD/WN, no apparent distress Eyes: sclerae normal ENT: hearing grossly normal Neck: supple, no JVD, trachea midline Respiratory/Chest: lungs clear, normal breath sounds, no respiratory distress, no accessory muscle use Cardiovascular: regular rate, rhythm, no gallop, no murmur Abdomen: normal bowel sounds, non tender, soft Extremities: no pedal edema, no calf tenderness Neurologic/Psychiatric: alert, oriented x 3 Skin: normal color, warm/dry (Jazzmine Craft PA-C) General Appearance: WD/WN, no apparent distress Eyes: normal inspection, EOMI ENT: hearing grossly normal, pharynx normal Neck: supple, no JVD Respiratory/Chest: lungs clear, normal breath sounds Cardiovascular: no edema, no JVD Abdomen: non tender, soft Extremities: non-tender, no pedal edema Neurologic/Psychiatric: alert Skin: warm/dry (Bridger Toth MD) Laboratory Results Last 24 Hours Test 06/09/16 16:34 06/09/16 17:19 06/09/16 20:55 06/09/16 22:54 Bedside Glucose 246 mg/dl 249 mg/dl Total Creatine Kinase 37 U/L 33 U/L Creatine Kinase MB 1.0 ng/ml 0.9 ng/ml Creatine Kinase MB Ratio 2.7 2.7 Troponin I 0.483 ng/ml 0.488 ng/ml Test 06/10/16 05:18 06/10/16 11:31 White Blood Count 5.85 K/uL Red Blood Count 4.62 M/uL Hemoglobin 13.4 g/dL Hematocrit 39.1 % Mean Corpuscular Volume 84.6 fL Mean Corpuscular Hemoglobin 29.0 pg Mean Corpuscular Hemoglobin Concent 34.3 g/dl Platelet Count 157 K/uL Mean Platelet Volume 9.2 fL Neutrophils (%) (Auto) 62.8 % Lymphocytes (%) (Auto) 27.0 % Monocytes (%) (Auto) 8.2 % Eosinophils (%) (Auto) 1.5 % Basophils (%) (Auto) 0.2 % Neutrophils # (Auto) 3.67 K/uL Lymphocytes # (Auto) 1.58 K/uL Monocytes # (Auto) 0.48 K/uL Eosinophils # (Auto) 0.09 K/uL Basophils # (Auto) 0.01 K/uL RDW Standard Deviation 40.8 fL RDW Coefficient of Variation 13.3 % Immature Granulocyte % (Auto) 0.3 % Immature Granulocyte # (Auto) 0.02 K/uL Prothrombin Time 11.2 SECONDS Prothromb Time International Ratio 1.0 Activated Partial Thromboplast Time 25.0 SECONDS Partial Thromboplastin Ratio 1.0 Sodium Level 139 mmol/L Potassium Level 3.7 mmol/L Chloride Level 103 mmol/L Carbon Dioxide Level 27 mmol/L Anion Gap 9.0 mmol/L Blood Urea Nitrogen 24 mg/dl Creatinine 0.94 mg/dl Est Creatinine Clear Calc Drug Dose 63.8 ml/min Estimated GFR () 71.2 Estimated GFR (Non- 61.5 BUN/Creatinine Ratio 25.3 Random Glucose 214 mg/dl Calcium Level 8.6 mg/dl Bedside Glucose 216 mg/dl (Jazzmine Craft PA-C) Assessment and Plan Ms. Ramirez is a 70 y/o female with PMHx of HTN, HLD, T2DM, R Breast CA S/P R Mastectomy and Stem Cell Transplant, and RLL Lung Nodule who is a direct admission from [facility] after treatment for acute CHF and NSTEMI. Acute Diastolic Congestive Heart Failure and NSTEMI and H/O HTN: No Documented H /O CHF - Appears acute CHF resulting from NSTEMI - was diuresed in [place] with now further complaints of SOB or CP - Will continue to hold further Lasix administration - will implement if needed - ASA 81 mg daily - Atorvastatin 80 mg daily - Carvedilol 3.125 mg BID and Lisinopril 10 mg daily - Cardiology following - catheterization for today T2DM: HbA1c 8.8 - Patient reports PCP is aware and is planning of making adjustments - Hold Metformin due to CTA in [place] and possible Cath - SSI R Breast CA S/P R Mastectomy: - Femara 2.5 mg daily - non-formulary and patient may take own med DVT Prophylaxis: - TEDs/SCDs Code Status: - FULL RESUSCITATION Disposition: - Catheterization today (Jazzmine Craft PADamianC) Ms. Ramirez is a 70 y/o female with PMHx of HTN, HLD, T2DM, R Breast CA S/P R Mastectomy and Stem Cell Transplant, and RLL Lung Nodule who is a direct admission from [facility] after treatment for acute CHF and NSTEMI. Acute Diastolic Congestive Heart Failure and NSTEMI and hx HTN: No Documented hx CHF Appears acute CHF resulting from NSTEMI ASA 81 mg daily Atorvastatin 80 mg daily Carvedilol 3.125 mg BID and Lisinopril 10 mg daily Cardiology following s/p catheterization, severe CAD, may need CABG, however due to the nodule, will need oncology evaluation to justify need of CABG in case if this is cancer consult dr Peters T2DM: HbA1c 8.8 Patient reports PCP is aware and is planning of making adjustments Hold Metformin due to CTA in [place] and possible Cath cont SSI R Breast CA S/P R Mastectomy: cont Femara 2.5 mg daily, non-formulary and patient may take own med DVT Prophylaxis: TEDs/SCDs Code Status: FULL RESUSCITATION Disposition: may need CABG (Bridger Toth MD)
[2016-06-10] MEDS: SODIUM CHLORIDE 0.9% 1000ML 1,000 ML IV SCH (13:50)
[2016-06-10] MEDS ORDERED: ATROPINE SULFATE 0.1 MG/ML 10 ML SYR ONE (14:05)
[2016-06-10] MEDS ORDERED: SODIUM CHLORIDE 0.9% 1000ML 250 ML IV PRN (14:21)
--- NOTE | 2016-06-10 14:21 | Procedure Note ---
Post-Mod Sedation Assessment General Date of Moderate Sedation Jun 10, 2016. Vital Signs: Vital Signs Past 12 Hours Date Time Temp Pulse Resp B/P Pulse Ox O2 Delivery O2 Flow Rate FiO2 06/10/16 14:10 82 18 101/53 97 Room Air 06/10/16 14:05 49 18 77/45 95 Room Air 06/10/16 14:00 73 18 134/61 95 Room Air 06/10/16 13:55 75 18 141/69 96 Room Air 06/10/16 13:50 74 18 141/75 96 Room Air 06/10/16 13:45 78 18 142/70 97 Room Air 06/10/16 13:40 76 18 130/70 99 Nasal Cannula 4 06/10/16 08:00 97 Room Air 06/10/16 08:00 63 18 129/83 93 Room Air 06/10/16 04:00 Room Air 06/10/16 04:00 36.7 75 18 123/64 98 Room Air Review - Discharge Criteria Vital Signs Stable: Yes Alert/Oriented/Conversant: Yes Returned to Baseline Mental St: Yes Nausea Absent/Minimal: Yes Pain/Discomfort/Absent/Minimal: Yes Normal/Baseline Respirations: Yes Active Bleeding?: No Pt Received D/C Instructions: N/A Prescriptions Given: None Specific Proced. D/C Criteria Distal Pulses Present (Cardiac: Yes Groin site assessed-Card Cath: Yes Voided Prior To Discharge: No Discharged Patients Adult Escort/Transportation: N/A
[2016-06-10] MEDS ORDERED: ATROPINE SULFATE 0.1 MG/ML 5ML SYR IV PRN (14:30)
[2016-06-10] MEDS ORDERED: ACETAMINOPHEN 325 MG TAB PO PRN (14:30)
[2016-06-10] MEDS ORDERED: ONDANSETRON INJ 2 MG/ML 2 ML VIAL IV PRN (14:30)
--- NOTE | 2016-06-10 16:09 | Cardiac Catheterization ---
Procedure Note Procedure Date Jun 10, 2016. Pre-Procedure Diagnosis Non STEMI, Acute Coronary Syndrome, Angina, Positive Stress Test, CHF, Cardiomyopathy AUC Score 8 Post-Procedure Diagnosis Severe CAD Procedure(s) Performed Coronary Angiography, Left Heart Cath, LV Angiography, Femoral Artery Angiography, procedure (Right subclavian artery angiography) Screen Printing Stencil Preparer Dr. Amaya Study Abroad Advisor(s) ALETHA Villalobos Estimated Blood Loss 25 ml Medication(s) Atropine, Fentanyl, Heparin, Nicardipine (Intra-arterial), Versed, Lidocaine 1% Summary of Findings Clinical indications: Worsening anginal and anginal equivalent symptoms for several weeks. Lexiscan pharmacologic stress test June 04, 2016 with evidence of 3 vessel coronary artery disease. Acute congestive heart failure June 06, 2016. Troponin I elevated after the episode. Electrocardiogram with evidence of inferior and anterior myocardial infarction. Transfer from [facility] to [facility] June 09 for further cardiac care as well as cardiac catheterization. Echocardiogram at [facility] June 09 with apical akinesis. Mid to distal septal hypokinesis - akinesis, inferoapical hypokinesis, anterolateral hypokinesis, and inferior hypokinesis. Left ventricular ejection fraction approximately 50 percent. Mild aortic and mitral regurgitation. CAD risk factors include hypertension, dyslipidemia, and type 2 diabetes mellitus. The patient has a history of breast cancer. Status post right mastectomy approximately 25 years ago. Metastatic disease to lung 20 years ago treated with chemotherapy, his stem cell transplant, and radiation therapy. On a recent chest CT scan there was a right lower lobe nodule. This is currently in the process of being evaluated. Catheterization site: The right radial artery was 1st accessed using micropuncture technique. The guidewire would not advance past the proximal radial artery. A luge coronary wire would also not advance past this location. Hemostasis was then obtained the right radial access site. The right ulnar artery was then accessed using a micro puncture technique. A 6 [place] Helenian slender glide sheath was inserted into the ulnar artery. The guidewire easily advanced to the aortic root. However, 4 [facility] Helenian, 5 [facility] Helenian, and 6 [facility] Helenian brachial 3.5 diagnostic catheters would not advanced from the right subclavian artery and the right innominate artery into the ascending aorta. this was over both a standard 0.035 J-tip guidewire as well as a stiff 0.035 J tipped Glidewire. The left ulnar artery sheath was secured in place. The right femoral artery was then accessed under ultrasound guidance. A 5 [facility] Helenian sheath was then inserted. Hemostasis: Manual pressure at right radial arterial access site. Terumo TR band at right ulnar arterial access site. Manual pressure at right femoral arterial access site. Catheters: 5 [facility] Helenian JL4, JR4, and pigtail catheters for coronary angiography and left heart catheterization. Complications: No complications during the procedure. After manual pressure at the right femoral catheterization site was completed and hemostasis documented the patient developed asymptomatic bradycardia with sinus rates in the 40s and asymptomatic hypotension with systolic pressures in the 50s. She was given 0.5 milligrams of intravenous atropine and a 250 milliliter bolus of normal saline. Her heart rate increased into the 80s. Her systolic blood pressure increased into the low 100s. She remained asymptomatic. There was no evidence of bleeding at the right femoral catheterization site. findings: Fluoroscopy revealed extensive coronary calcifications. The coronary circulation was right dominant. The left main coronary artery was a large caliber vessel with a 50-70 percent ostial stenosis and a 50-60 percent eccentric mid stenosis. left main gave rise to large caliber left anterior descending left circumflex coronary arteries. The proximal and mid LAD were extensively calcified and diffusely diseased. The proximal LAD had a 30 percent stenosis then followed by a long eccentric 50 - 70 percent stenosis. The proximal LAD gave rise to a small caliber diagonal artery which had a total ostial stenosis. There was [id number] collateral flow to the diagonal from the left circumflex marginal arteries. After the diagonal the mid LAD had a 30-50 percent stenosis then followed by an 80-90 percent stenosis. The remainder of the mid and distal LAD had diffuse atherosclerotic disease with 0- 10 percent luminal diameter narrowing. The mid and distal LAD after the diagonal was of small caliber. The proximal left circumflex had a 50 percent stenosis. The mid circumflex had a 10-20 percent stenosis. The mid circumflex then gave rise to a long medium caliber bifurcating marginal artery which had a 70 percent proximal stenosis. The mid segment of the marginal had a 10-20 percent stenosis. After the marginal the circumflex became a small caliber vessel. It then gave rise to a long small caliber 2nd marginal artery which had no obstructive disease. After the 2nd marginal the mid left circumflex had diffuse mild atherosclerotic disease with 20-30 percent luminal diameter narrowing. The distal circumflex gave rise to a long small caliber posterolateral artery and then a very small caliber 2nd posterolateral artery. These vessels had minor luminal irregularities. Collateral flow was present from the left coronary artery via septal perforating branches in the distal left circumflex to the distal right coronary artery and its PDA branch. The right coronary artery was a small to medium caliber vessel. Ostial 50 percent stenosis cuff. Proximal diffuse tenderness 30 percent stenoses. Early mid RCA with 80 percent stenosis. The early distal RCA with 90 percent stenosis. Subtotal ostial PDA stenosis. The distal RCA gave rise to a very small caliber right posterolateral artery which was diffusely diseased. Left ventricular angiography performed from the 30 degree right anterior oblique projection with a hand injection of contrast dye revealed the posterior basal and anterior basal segments to contract normally. The diaphragmatic and anterolateral segments were hypokinetic. The apex was akinetic. LV ejection fraction 45 percent. No mitral regurgitation noted. Right subclavian artery angiography revealed the right internal mammary artery to be widely patent. The right common carotid artery and left common carotid artery were visualized. No obstructive disease noted. Tortuous right innominate artery. right femoral artery angiography revealed sheath to be present in the right superficial femoral artery. Plan: The patient is diabetic and has left ventricular systolic dysfunction. She has left main and three-vessel coronary artery disease. Based on these clinical variables CABG surgery would be indicated. However, the patient has a recently diagnosed right lower lobe lung nodule. The etiology of this nodule has not as yet been determined. Metastatic or primary cancer would need to be assessed before consideration of performing CABG surgery. She will remain on medical therapy for her coronary artery disease and left ventricular systolic dysfunction. Hemodynamics Rest Ao: 128/57/86 mm Hg Final Ao: 135/60/91 mm Hg LV: 136/12 mm Hg Radiation Exposure (mGy) 2315 Contrast (mls) 125 ml Visipaque Fluids (cc crystalloids) 25 ml during procedure, 250 ml after sheath removal. Drains none Anesthesia Intravenous Versed and fentanyl. Lidocaine for local anesthesia. Procedural Complication(s) Vasovagal reaction after sheath removal. Promptly and successfully treated with intravenous atropine and bolus of normal saline. Disposition ICU ACC Data Cardiac Status Clinical evaluation leading to the procedure CAD Presntation: Non STEMI, Positive Stress Test Anginal Classification: CCS II Heart Failure: NYHA Class: CCS IV Cardiogenic Shock w/in 24Hrs: No Cardiac Arrest w/in 24Hrs: No Imaging studies past 6 months: Yes Stress studies past 6 months: Yes Standard Exercise Stress Test: No Stress Echocardiogram: No Stress Testing w/SPECT MPI: Yes - Positive, Risk/Extent of Ischemia (High) Cardiac CTA: No Coronary Anatomy Dominant: Right Left Main (% Stenosis): Ostial (50-70), Mid (50-60) LAD (% Stenosis): Proximal (diffuse 30%), Mid (diffuse 30%, then long eccentric 50-70%. After D1 30-50% then 80-90%. Remainder of mid LAD with diffuse 0-10%), Distal (0-10%) D1 (% Stenosis): Ostial (100) Circumflex (% Stenosis): Proximal (50), Mid (10-20) OM1 (% Stenosis): Proximal (70), Mid (10-20, 20-30) RCA (% Stenosis): Ostial (50), Proximal (10-30), Mid (80), Distal (90) R PDA (% Stenosis): Ostial (99) R PL1 (% Stenosis): Proximal (30-50), Mid (30-50), Distal (30-50) Left Ventricular Angiography EF (%): 45 Wall Motion: Inferior (Hypokinetic), Apical (Akinetic), Anterior (Hypokinetic) Mitral Regurgitation: None Diagnostic Physician's Name: Rg Amaya M.D. Status: Elective Closure Device Percutaneous Entry Location: Femoral Closure Device: none - manual hold Recommendations: Medical therapy and/or Counseling, CABG
[2016-06-11] VITALS (10 sets, daily range): BP systolic 104–126; BP diastolic 40–60; PULSE 72–81; TEMP 36.5–37.2; O2SAT 94–98
[2016-06-11] MEDS: SODIUM CHLORIDE 0.9% 1000ML 1,000 ML IV SCH ×2 (01:22→16:30)
[2016-06-11 06:46] LABS: BASO % 0.2 %; BASO ABS # 0.01 K/uL (0-0.2); COMPLETE YES; EOS % 1.4 %; HEMATOCRIT 35.5 % (37-47); IG% 0.3 %; LYMPH % 20.9 %; MEAN CELL VOLUME 84.9 fL (80-100); MEAN CORPUSCULAR HEMOGLOBIN 29.4 pg (25-34); MEAN CORPUSCULAR HGB CONC 34.6 g/dl (32-36); MEAN PLATELET VOLUME 9.2 fL (7.4-10.4); MONO % 8.6 %; NEUT % 68.6 %; PLATELET COUNT 150 K/uL (130-400); RED BLOOD COUNT 4.18 M/uL (4.2-5.4); WHITE BLOOD COUNT 5.73 K/uL (4.8-10.8)
[2016-06-11] MEDS: INSULIN ASPART 100 UNITS/ML 3 ML PEN SC SCH ×4 (07:00→21:27)
[2016-06-11 07:20] LABS: BUN/CREATININE RATIO 21.3 (10-20); CALCIUM 8.3 mg/dl (8.5-10.1); CREATININE 0.76 mg/dl (0.60-1.20); POTASSIUM 3.7 mmol/L (3.5-5.1)
--- NOTE | 2016-06-11 09:02 | ONCOLOGY CONSULTATION ---
DATE OF CONSULTATION: 06/11/2016 DATE OF CONSULTATION: 06/11/2016. REASON FOR CONSULTATION: A 70-year-old postmenopausal female with a remote history of breast cancer. HISTORY OF PRESENT ILLNESS: Nadia is a pleasant 70-year-old female who had presented to [facility] with shortness of breath and exertional dyspnea. Preliminary diagnosis was non-ST elevated myocardial infarction and acute congestive heart failure. She states that she had been struggling with symptoms over the past several weeks and interestingly was in my office early last week and made no mention of such symptoms. Nonetheless, she reports symptoms were relieved with rest. EMS was called and she was taken to [facility]. She was given aspirin and nitroglycerin and intravenous Lasix resulting in relief. Cardiac catheterization was performed on 06/09/2016 revealing multiple affected vessels. Stenting was attempted and unsuccessful. The patient is now deciding whether to pursue surgical option versus medical management. Nadia is well known to [facility] previously under the care of Dr. Peng Tan. She was originally diagnosed back in 1991, status post mastectomy and then recurrence in 1996. She underwent a combination Adriamycin, cyclophosphamide and Taxotere adjuvant radiation therapy along with stem cell rescue. She had been on tamoxifen for 5 years and continues on aromatase inhibitors. As I said prior Nadia was in the office on the 05 of June and made no mention of her ongoing symptoms. PAST MEDICAL HISTORY: Positive for hypertension, type 2 diabetes mellitus, hyperlipidemia, right lower lobe pulmonary nodule and breast cancer. PAST SURGICAL HISTORY: Status post mastectomy. MEDICATIONS: Prior to admission include metformin 500 mg p.o. t.i.d., Meloxicam 15 mg p.o. every day, letrozole 2.5 mg p.o. daily, vitamin B12 complex 2 tablets daily, Pepcid 40 mg p.o. every day, Vytorin 10/20 mg 1 tablet p.o. daily, vitamin D 50,000 international units p.o. q. weekly, aspirin 81 mg p.o. every day. ALLERGIES: No known drug allergies. SOCIAL HISTORY: The patient is retired, reformed smoker, nondrinker. FAMILY HISTORY: Positive for diabetes mellitus and hypertension. REVIEW OF SYSTEMS: As per HPI most notably for shortness of breath, exertional dyspnea and chest pressure. Negative for fevers, chills or sweats. She is not anorexic or losing weight. SKIN: No rashes or lesions. No history of dermatoses. HEAD, EYES, EARS, NOSE, AND THROAT: Negative for headaches, lightheadedness or dizziness. No sinus symptoms, sore throat or dysphagia. No buccal lesions or ulcerations presently. NECK: No history of palpable lymphadenopathy or lymphoproliferative disorder. CARDIAC: No prior history of coronary artery disease. The rest of review as per HPI. PULMONARY: Positive for shortness of breath. Positive for dyspnea. Negative for cough or hemoptysis. No history of COPD otherwise. GASTROINTESTINAL: Negative for abdominal pain, nausea, vomiting, diarrhea or constipation, hematochezia or melena stools. GENITOURINARY: No hematuria, dysuria, urinary incontinence. MUSCULOSKELETAL: No history of osteoarthrosis. No arthralgias or myalgias. No muscle weakness. NEUROLOGIC: Negative for seizure, stroke, or migraine headache. HEMATOLOGIC: Negative for anemia, thrombophilia or bleeding diathesis. PHYSICAL EXAMINATION: GENERAL: Nadia is a pleasant 70-year-old female patient sitting at bedside in no acute distress. VITAL SIGNS: Temperature 37.2, pulse 77, respirations 22, blood pressure 111/48. SKIN: Without rash or lesion. HEAD, EYES, EARS, NOSE, AND THROAT: Head is atraumatic, normocephalic. EYES: PERRLA, EOMI. Sclerae nonicteric. No conjunctival injection. Nares are patent without rhinorrhea or discharge. Throat clear. Tongue midline. Mucous membranes are moist. NECK: Supple without JVD or thyromegaly. LYMPH: No cervical, supraclavicular, axillary palpable nodes. HEART: Regular rate and rhythm. No clicks, rubs or murmurs. LUNGS: Clear to auscultation bilaterally. ABDOMEN: Soft, nontender, nondistended, without palpable hepatosplenomegaly. EXTREMITIES: No calf tenderness or swelling. No clubbing, cyanosis or edema. Strength and pulses are equal. NEUROLOGICALLY: She is awake, alert and oriented x3. Cranial nerves II-XII are intact. No gross motor or sensory deficits are noted. LABORATORY DATA: WBC count 5730, hemoglobin 12.3, platelet count 150,000. Sodium 140, potassium 3.7, chloride 105, carbon dioxide 25, BUN 16, creatinine 0.76. IMPRESSION: 1. Non-ST elevated myocardial infarction. 2. Acute diastolic congestive heart failure. 3. Type 2 diabetes mellitus. 4. History of breast cancer. 5. Pulmonary nodule right lower lobe. PLAN: I have been asked to see Harper in regards to her status of disease. I saw her in the office back on the at which time physical exam was otherwise unremarkable. However, CT scan of the chest done recently did reveal a 1.2 cm right lower lobe nodule. My recommendation at the time was being that it is borderline would be difficult to obtain a biopsy. However, there are invasive ways of possibly getting to this lesion. In particular, EBUS which could be done by Dr. Marquez or the pulmonary service. Therefore, if this is the clinical issue holding up possible surgery I was asked the primary team to proceed with Dr. Marquez consult for an opinion regarding possible biopsy. If biopsy unobtainable will proceed with the original plan on follow-up CT in about 2-3 months. I have nothing further to add at this time. If you have any questions or concerns, feel free to call me at any time. Thank you again for allowing me to participate in the care of this very pleasant patient.
[2016-06-11] MEDS: ATORVASTATIN 40 MG TAB PO SCH (09:38)
[2016-06-11] MEDS: ASPIRIN 81 MG ECTAB PO SCH (09:38)
[2016-06-11] MEDS: FAMOTIDINE 20 MG TAB PO SCH (09:39)
[2016-06-11] MEDS: LISINOPRIL 10 MG TAB PO SCH (09:39)
[2016-06-11] MEDS: LETROZOLE 2.5 MG TAB PO SCH (09:40)
--- NOTE | 2016-06-11 09:58 | PROGRESS NOTE ---
DATE: 06/11/2016 SUBJECTIVE: The patient was seen by me this morning in her telemetry unit room. She states she is feeling very well. Her only complaint is mild swelling of her right hand. She did have a compression bandage on her right wrist overnight. She denies any pain in her right hand or right wrist. No orthopnea or PND. No dyspnea walking about the room. No palpitations, lightheadedness, or syncope. No chest pain or other anginal type symptoms. No abdominal pain or nausea. Minimal tenderness at her right femoral catheterization site. No right leg pain. No cerebrovascular complaints. No bleeding complaints. No fevers or chills. No pulmonary or urinary complaints. No GI complaints. No skin rash complaints. MEDICATIONS: This morning were carvedilol 3.125 mg b.i.d., aspirin 81 mg daily, lisinopril 10 mg daily, letrozole 2.5 mg daily, atorvastatin 80 mg daily, famotidine 40 mg p.o. daily, and a few p.r.n. medications. ALLERGIES AND ADVERSE DRUG REACTIONS: None. Monitor history in telemetry unit shows sinus rhythm. No ectopy. Monitor was reviewed by me. PHYSICAL EXAMINATION: VITAL SIGNS: This morning recorded that with oral temperature 37.2, pulse 77, blood pressure 111/48, pulse oximetry on room air 95%. On monitor her current heart rate is 91 beats per minute. GENERAL: Shows her to be in no distress. NECK: No jugular venous distention. LUNGS: Normal respiratory effort. Clear. No rales or wheezes. HEART: Regular rate and rhythm. S1, S2 normal. No S3 or S4. 2/6 systolic murmur second right intercostal space in left lower sternal border. ABDOMEN: Soft. Nontender. No palpable masses or organomegaly. No bruits. EXTREMITIES: No pretibial edema. Right radial and ulnar pulses intact. No bleeding at catheterization site. Mild puffiness of right hand. Right groin without bleeding or hematoma. No bruit heard of right femoral artery. Right dorsalis pedis and posterior tibial pulses palpable. NEUROLOGIC: Alert and oriented x3. Motor grossly intact. PSYCHIATRIC: Affect is normal. LABORATORY DATA: Today with hemoglobin 12.3, hematocrit 35.5, platelet count 150. WBC 5.73. Metabolic profile -- sodium 140, potassium 3.7, chloride 105, carbon dioxide 25, BUN 16, creatinine 0.76, random glucose 182. ASSESSMENT: 1. Status post small non-ST elevation myocardial infarction. No current anginal symptoms. 2. Mildly reduced overall left ventricular systolic function. 3. Status post episode of acute congestive heart failure last week. No current signs or symptoms of congestive heart failure. She appears euvolemic on exam. 4. Left main and 3-vessel coronary artery disease noted on cardiac catheterization yesterday. As stated above, no current anginal type symptoms. Her coronary arteries are extensively calcified. This would increase the risk of coronary artery bypass graft surgery. When a bypass graft is anastomosed to a levelock vessel it needs to be sutured into the vessel. Calcifications can hinder this process. She would also be at increased risk for coronary artery bypass graft surgery secondary to her prior chest radiation. She likely has increased scar tissue in her chest from the prior radiation. 5. Inadequate control of heart rate. 6. No bleeding complications on aspirin. 7. Hemoglobin and renal function stable. 8. Right lower lobe lung nodule noted on CT scan. Etiology is yet undetermined. The plan was for her to undergo a repeat scan in a few months to see if there is any change in the appearance and size of the nodule. RECOMMENDATIONS: 1. The patient is asymptomatic from a cardiac standpoint at this time. There is no urgent need for her to undergo CABG surgery. 2. Will increase carvedilol to 6.25 mg b.i.d. We will add isosorbide mononitrate 30 mg daily to her medical regimen. The will be to help decrease ventricular preload and to help prevent anginal type symptoms. 3. We will restart clopidogrel 75 mg daily. She is not having urgent or emergent CABG surgery. 4. Continue aspirin. 5. Will start spironolactone 25 mg daily in light of her episode of heart failure as well as her LV systolic dysfunction. 6. Outpatient evaluation by CT surgeon to assess her candidacy for CABG surgery. They would be able to further assess the risks and benefits of surgery. 7. Increase activity today. If she remains asymptomatic we will consider recommending discharge tomorrow. The above assessment and recommendations were discussed with the patient and with her hospitalist. MAURICIO
[2016-06-11] MEDS: SPIRONOLACTONE 25 MG TAB PO SCH (12:06)
[2016-06-11] MEDS: CARVEDILOL 6.25 MG TAB PO SCH ×2 (12:07→21:22)
[2016-06-11] MEDS: CLOPIDOGREL BISULFATE 75 MG TAB PO SCH (12:07)
[2016-06-11] MEDS: ISOSORBIDE MONONITRATE 30 MG TABCR PO SCH (12:08)
--- NOTE | 2016-06-11 18:14 | Progress Note ---
Subjective Subjective Date of Service: Jun 11, 2016. Pt evaluation today including: conversation w/ patient, physical exam, chart review, review of studies, review of inpatient medication list Review of Systems Constitutional: No fever ENT: No hearing loss Respiratory: No cough Abdomen: No pain Female : No dysuria Psychiatric: No depression symptoms Physical Exam Vital Signs Vital Signs Past 24 Hours: Date Time Temp Pulse Resp B/P Pulse Ox O2 Delivery O2 Flow Rate FiO2 06/11/16 16:14 36.8 81 18 115/53 94 Room Air 06/11/16 12:00 Room Air 06/11/16 11:30 37.2 77 20 126/57 96 Room Air 06/11/16 08:00 Room Air 06/11/16 07:37 37.2 77 22 111/48 95 Room Air 06/11/16 04:00 Room Air 06/11/16 03:40 36.5 80 18 117/40 96 Room Air 06/11/16 01:18 37.0 72 18 111/52 97 Room Air 06/11/16 00:50 36.8 76 15 97 2.0 06/11/16 00:01 Room Air 06/10/16 23:58 36.8 76 15 109/60 97 Room Air 06/10/16 23:42 75 28 120/67 97 Room Air 06/10/16 22:58 76 24 125/61 95 Room Air 06/10/16 22:13 77 23 129/66 94 Room Air 06/10/16 21:58 77 22 129/66 94 Room Air 06/10/16 21:58 77 22 129/66 94 Room Air 06/10/16 20:59 79 27 125/56 95 Room Air 06/10/16 20:59 79 27 125/56 95 Room Air 06/10/16 20:34 84 16 126/66 98 Room Air 06/10/16 20:34 84 16 126/66 98 Room Air 06/10/16 20:13 79 18 108/59 95 Room Air 06/10/16 20:13 79 18 108/59 95 Room Air 06/10/16 20:00 Room Air 06/10/16 19:58 37.0 84 25 124/62 96 Room Air 06/10/16 19:58 36.9 84 25 124/62 96 Room Air 06/10/16 19:43 80 21 109/56 96 Room Air 06/10/16 19:43 80 21 109/56 96 Room Air 06/10/16 19:28 80 20 120/60 94 Room Air 06/10/16 19:28 80 20 120/60 94 Room Air 06/10/16 19:13 84 28 125/67 96 Room Air 06/10/16 19:13 84 28 125/67 96 Room Air 06/10/16 19:00 90 23 91 Physical Exam: General Appearance: WD/WN, no apparent distress Eyes: bilateral eyes normal inspection ENT: hearing grossly normal, pharynx normal Neck: supple, no JVD Respiratory/Chest: lungs clear, no accessory muscle use Cardiovascular: regular rate, rhythm, no JVD Abdomen: non tender, soft Extremities: non-tender, no pedal edema Neurologic/Psychiatric: alert Skin: normal color, no rash Medications Medications: Current Inpatient Medications Medications (Trade) Dose Ordered Sig/Jaziel Route Start Time Stop Time Status Last Admin Dose Admin Al Hydrox/Mg Hydrox/Simethicone (Maalox Max Susp) 15 ml Q4H PRN PO 06/09/16 12:45 07/09/16 12:44 Magnesium Hydroxide (Milk Of Magnesia Susp) 30 ml Q12H PRN PO 06/09/16 12:45 07/09/16 12:44 Nitroglycerin (Nitrostat Tab) 0.4 mg UD PRN SL 06/09/16 12:45 07/09/16 12:44 Polyethylene (Miralax Powder Packet) 17 gm DAILY PRN PO 06/09/16 12:45 07/09/16 12:44 Aspirin (Ecotrin Tab) 81 mg DAILY PO 06/10/16 09:00 07/10/16 08:59 06/11/16 09:38 81 MG Famotidine (Pepcid Tab) 40 mg DAILY PO 06/09/16 13:00 07/09/16 12:59 06/11/16 09:39 40 MG Lisinopril (Zestril Tab) 10 mg DAILY PO 06/10/16 09:00 07/10/16 08:59 06/11/16 09:39 10 MG Insulin Aspart (novoLOG ASPART) SLIDING SCALE G... ACHS SC 06/09/16 16:00 07/09/16 15:59 06/11/16 17:16 2 UNITS Glucose (Glucose 40% Gel) 15-30 GRAMS 15 GRAMS... UD PRN PO 06/09/16 13:00 07/09/16 12:59 Glucose (Glucose Chew Tab) 4-8 Tablets 4 Tabl... UD PRN PO 06/09/16 13:00 07/09/16 12:59 Dextrose (Dextrose 50% 50ML Syringe) 25-50ML OF 50% DW IV FOR... UD PRN IV 06/09/16 13:00 07/09/16 12:59 Glucagon (Glucagon Inj) 1 mg UD PRN SQ 06/09/16 13:00 07/09/16 12:59 Letrozole (Femara Tab) 2.5 mg DAILY PO 06/10/16 09:00 07/10/16 08:59 06/11/16 09:40 2.5 MG Albuterol/ Ipratropium 3 ml 3 ml Q2H PRN INH 06/09/16 17:45 07/09/16 17:44 Sodium Chloride (Nss 1000ml) 1,000 ml @ 75 mls/hr [id number] IV 06/10/16 00:30 07/10/16 00:29 06/11/16 16:30 75 MLS/HR Atorvastatin Calcium (Lipitor Tab) 80 mg QAM PO 06/10/16 09:00 07/10/16 08:59 06/11/16 09:38 80 MG Acetaminophen 650 mg 650 mg Q4H PRN PO 06/10/16 14:30 07/10/16 14:29 Sodium Chloride (Nss 1000ml) 250 ml @ 999 mls/hr Q16M PRN IV 06/10/16 14:21 07/10/16 14:20 Atropine Sulfate (Atropine Sulfate 0.1MG/Ml Inj) 0.6 mg PRN PRN IV 06/10/16 14:30 07/10/16 14:29 Ondansetron HCl (Zofran Inj) 4 mg Q6H PRN IV 06/10/16 14:30 07/10/16 14:29 Carvedilol (Coreg Tab) 6.25 mg BID PO 06/11/16 09:00 07/11/16 08:59 06/11/16 12:07 6.25 MG Spironolactone (Aldactone Tab) 25 mg QAM PO 06/11/16 09:00 07/11/16 08:59 06/11/16 12:06 25 MG Clopidogrel Bisulfate (plAVix TAB) 75 mg QAM PO 06/11/16 09:00 07/11/16 08:59 06/11/16 12:07 75 MG Isosorbide Mononitrate (Imdur Ext Rel Tab) 30 mg QAM PO 06/11/16 09:00 07/11/16 08:59 06/11/16 12:08 30 MG Laboratory Data Labs: Last 24 Hours Test 06/10/16 21:28 06/11/16 06:05 06/11/16 06:33 06/11/16 11:26 Bedside Glucose 208 mg/dl 193 mg/dl 238 mg/dl White Blood Count 5.73 K/uL Red Blood Count 4.18 M/uL Hemoglobin 12.3 g/dL Hematocrit 35.5 % Mean Corpuscular Volume 84.9 fL Mean Corpuscular Hemoglobin 29.4 pg Mean Corpuscular Hemoglobin Concent 34.6 g/dl Platelet Count 150 K/uL Mean Platelet Volume 9.2 fL Neutrophils (%) (Auto) 68.6 % Lymphocytes (%) (Auto) 20.9 % Monocytes (%) (Auto) 8.6 % Eosinophils (%) (Auto) 1.4 % Basophils (%) (Auto) 0.2 % Neutrophils # (Auto) 3.93 K/uL Lymphocytes # (Auto) 1.20 K/uL Monocytes # (Auto) 0.49 K/uL Eosinophils # (Auto) 0.08 K/uL Basophils # (Auto) 0.01 K/uL RDW Standard Deviation 40.5 fL RDW Coefficient of Variation 13.2 % Immature Granulocyte % (Auto) 0.3 % Immature Granulocyte # (Auto) 0.02 K/uL Sodium Level 140 mmol/L Potassium Level 3.7 mmol/L Chloride Level 105 mmol/L Carbon Dioxide Level 25 mmol/L Anion Gap 10.0 mmol/L Blood Urea Nitrogen 16 mg/dl Creatinine 0.76 mg/dl Est Creatinine Clear Calc Drug Dose 77.9 ml/min Estimated GFR () 92.1 Estimated GFR (Non- 79.5 BUN/Creatinine Ratio 21.3 Random Glucose 182 mg/dl Calcium Level 8.3 mg/dl Test 06/11/16 16:25 Bedside Glucose 218 mg/dl Assessment and Plan Ms. Ramirez is a 70 y/o female with PMHx of HTN, HLD, T2DM, R Breast CA S/P R Mastectomy and Stem Cell Transplant, and RLL Lung Nodule who is a direct admission from [facility] after treatment for acute CHF and NSTEMI. Acute Diastolic Congestive Heart Failure and NSTEMI and hx HTN: No Documented hx CHF Appears acute CHF resulting from NSTEMI ASA 81 mg daily Atorvastatin 80 mg daily Carvedilol 6.25 mg BID and Lisinopril 10 mg daily start isosorbide, plavix Cardiology following s/p catheterization, severe CAD/multivessel disease, may need CABG, however due to the nodule, had oncology evaluation to justify need of CABG in case if this is cancer, the nodule could be biopsied if clinically necessary, however may just need to repeat CT chest in few months appreciated dr Peters input, pt wants to make an appt with [facility] or [facility] for cardiothoracic surgeon T2DM: HbA1c 8.8 Patient reports PCP is aware and is planning of making adjustments Hold Metformin due to CTA in [place] and possible Cath cont SSI R Breast CA S/P R Mastectomy: cont Femara 2.5 mg daily, non-formulary and patient may take own med DVT Prophylaxis: TEDs/SCDs Code Status: FULL RESUSCITATION Disposition: possible d/c home tomorrow and f/u at [place] CT surgeon
[2016-06-12 03:56] VITALS: BP 104/62; PULSE 69; TEMP 36.9; O2SAT 95
[2016-06-12] MEDS: SODIUM CHLORIDE 0.9% 1000ML 1,000 ML IV SCH (05:31)
[2016-06-12 06:18] LABS: BASO % 0.2 %; BASO ABS # 0.01 K/uL (0-0.2); COMPLETE YES; EOS % 1.4 %; HEMATOCRIT 33.8 % (37-47); IG% 0.6 %; LYMPH % 24.4 %; LYMPH ABS # 1.23 K/uL (1.2-3.4); MEAN CELL VOLUME 83.3 fL (80-100); MEAN CORPUSCULAR HEMOGLOBIN 28.3 pg (25-34); MEAN PLATELET VOLUME 9.1 fL (7.4-10.4); MONO % 10.7 %; NEUT % 62.7 %; PLATELET COUNT 142 K/uL (130-400); RED BLOOD COUNT 4.06 M/uL (4.2-5.4); WHITE BLOOD COUNT 5.05 K/uL (4.8-10.8)
[2016-06-12 06:43] LABS: BUN/CREATININE RATIO 18.7 (10-20); CALCIUM 8.5 mg/dl (8.5-10.1); CREATININE 0.81 mg/dl (0.60-1.20); POTASSIUM 3.8 mmol/L (3.5-5.1)
[2016-06-12] MEDS: INSULIN ASPART 100 UNITS/ML 3 ML PEN SC SCH (07:00)
[2016-06-12 08:08] VITALS: BP 134/57; PULSE 81; TEMP 36.8; O2SAT 96
[2016-06-12] MEDS: ASPIRIN 81 MG ECTAB PO SCH (08:58)
[2016-06-12] MEDS: SPIRONOLACTONE 25 MG TAB PO SCH (08:58)
[2016-06-12] MEDS: ISOSORBIDE MONONITRATE 30 MG TABCR PO SCH (08:59)
[2016-06-12] MEDS: LETROZOLE 2.5 MG TAB PO SCH (08:59)
[2016-06-12] MEDS: CARVEDILOL 6.25 MG TAB PO SCH (08:59)
[2016-06-12] MEDS: CLOPIDOGREL BISULFATE 75 MG TAB PO SCH (08:59)
[2016-06-12] MEDS: FAMOTIDINE 20 MG TAB PO SCH (09:00)
[2016-06-12] MEDS: LISINOPRIL 10 MG TAB PO SCH (09:00)
[2016-06-12] MEDS: ATORVASTATIN 40 MG TAB PO SCH (09:01)
[2016-06-12] MEDS ORDERED: IMDSR30 PO (09:10)
[2016-06-12] MEDS ORDERED: PLV75 PO (09:10)
[2016-06-12] MEDS ORDERED: LSN10 PO (09:10)
[2016-06-12] MEDS ORDERED: SPR25 PO (09:10)
[2016-06-12] MEDS ORDERED: CRG625 PO (09:10)
[2016-06-12] MEDS ORDERED: LPT40 PO (09:10)
--- NOTE | 2016-06-12 09:12 | Discharge Instructions ---
Discharge Instructions Admission Reason for Admission: Congestive Heart Failure, Nstemi Discharge Discharge Diagnosis / Problem: CHF, NSTEMI Discharge Goals Goal(s): Increase independence, Improve disease control, Diagnostic testing, Therapeutic intervention Activity Recommendations Activity Limitations: as noted below Lifting Limitations: gradually increase as tolerated Exercise/Sports Limitations: until after follow-up appointment . Instructions / Follow-Up Instructions / Follow-Up follow up CT surgeon for elective CABG in [place] in few weeks start new meds, stop meloxicam Current Hospital Diet Patient's current hospital diet: Diabetes Type 2 Diet, AHA Diet (Heart Healthy) , Low Sodium Diet (2gm Na) Discharge Diet Recommended Diet: AHA Diet (Heart Healthy), Diabetes Type 2 Diet Procedures Procedures Performed: cath Pending Studies Studies pending at discharge: no Laboratory Results Last 24 Hours Test 06/11/16 11:26 06/11/16 16:25 06/11/16 20:04 06/12/16 05:50 Bedside Glucose 238 mg/dl 218 mg/dl 265 mg/dl White Blood Count 5.05 K/uL Red Blood Count 4.06 M/uL Hemoglobin 11.5 g/dL Hematocrit 33.8 % Mean Corpuscular Volume 83.3 fL Mean Corpuscular Hemoglobin 28.3 pg Mean Corpuscular Hemoglobin Concent 34.0 g/dl Platelet Count 142 K/uL Mean Platelet Volume 9.1 fL Neutrophils (%) (Auto) 62.7 % Lymphocytes (%) (Auto) 24.4 % Monocytes (%) (Auto) 10.7 % Eosinophils (%) (Auto) 1.4 % Basophils (%) (Auto) 0.2 % Neutrophils # (Auto) 3.17 K/uL Lymphocytes # (Auto) 1.23 K/uL Monocytes # (Auto) 0.54 K/uL Eosinophils # (Auto) 0.07 K/uL Basophils # (Auto) 0.01 K/uL RDW Standard Deviation 39.6 fL RDW Coefficient of Variation 13.1 % Immature Granulocyte % (Auto) 0.6 % Immature Granulocyte # (Auto) 0.03 K/uL Sodium Level 143 mmol/L Potassium Level 3.8 mmol/L Chloride Level 110 mmol/L Carbon Dioxide Level 25 mmol/L Anion Gap 8.0 mmol/L Blood Urea Nitrogen 15 mg/dl Creatinine 0.81 mg/dl Est Creatinine Clear Calc Drug Dose 73.0 ml/min Estimated GFR () 85.3 Estimated GFR (Non- 73.6 BUN/Creatinine Ratio 18.7 Random Glucose 216 mg/dl Calcium Level 8.5 mg/dl Test 06/12/16 06:24 Bedside Glucose 209 mg/dl Medical Emergencies . Who to Call and When: Medical Emergencies: If at any time you feel your situation is an emergency, please call 911 immediately. . Non-Emergent Contact Non-Emergency issues call your: Primary Care Provider, County Bailiff Call Non-Emergent contact if: your pain is not controlled, you have any medication questions . Past History Medical & Surgical History: (1) NSTEMI (non-ST elevated myocardial infarction) (2) Congestive heart failure . "Provider Documentation" section prepared by Bridger Toth. VTE Core Measure Inpt VTE Proph given/why not?: Too [place], SCD's
--- NOTE | 2016-06-12 09:18 | Discharge Summary ---
Discharge Summary Date of Service Jun 12, 2016. Discharge Summary Admission Date: Jun 09, 2016 at 12:01 Discharge Date: Jun 12, 2016 Discharge Disposition: Home Principal Diagnosis: NSTEMI Immunizations: Have You Had Influenza Vaccine: Unknown History of Tetanus Vaccine?: Yes History of Pneumococcal: Unknown History of Hepatitis B Vaccine: Unknown Procedures: cath cardiac Consultations: cards Medication Reconciliation New Medications: Atorvastatin (Atorvastatin Calcium) 40 Mg Tab 80 MG PO QAM, #90 TAB 3 Refills Carvedilol (Carvedilol) 6.25 Mg Tab 6.25 MG PO BID, #90 TAB 3 Refills Clopidogrel Bisulfate (Clopidogrel) 75 Mg Tab 75 MG PO QAM, #90 TAB 3 Refills Isosorbide Mononitrate (Isosorbide Mononitrate ER) 30 Mg Tabcr 30 MG PO QAM, #90 TABS 3 Refills Lisinopril (Zestril) 10 Mg Tab 10 MG PO DAILY, #90 TAB 3 Refills Spironolactone (Spironolactone) 25 Mg Tab 25 MG PO QAM, #90 TAB 3 Refills Continued Medications: Aspirin (Aspirin Ec) 81 Mg Tab 81 MG PO DAILY Calcium/Vitamin D (Os-Mirza 500 Plus D) Tab 1600 MG PO DAILY, TAB Ergocalciferol (Vitamin D Cap) 50,000 Interunit Cap 16522 INTER.UNIT PO WK, CAP Famotidine (Pepcid) 40 Mg Tab 40 MG PO QD, TAB L-Methylfol/Vitb2/Vitb6/Vitb12 (Metanx) 1 Tab Ea 2 TABLETS QD@08 Letrozole (Femara) 2.5 Mg Tab 2.5 MG PO QD@08, TAB Metformin Hcl Er (Glucophage Er) 500 Mg Tab 500 MG PO TID, TAB Discontinued Medications: Ezetimibe/Simvastatin (Vytorin 10MG/20MG) Tab 1 TAB PO QPM, TAB Lisinopril (Prinivil) 5 Mg Tab 5 MG PO, TAB Meloxicam (Mobic) 15 Mg Tab 15 MG PO DAILY, TAB Referrals At Discharge Follow up Referrals: Physician Referral - Within 2 Weeks with Jarocho Guadarrama M.D. Discharge Exam Review of Systems: Constitutional: No chills ENT: No unusual epistaxis Respiratory: No sputum Cardiovascular: No chest pain, No orthopnea Abdomen: No nausea Musculoskeletal: No joint pain Genitourinary - Female: No dysuria Neurologic: No memory loss Psychiatric: No depression symptoms Endocrine: No fatigue Integumentary: No rash Physical Exam: General Appearance: WD/WN, no apparent distress Eyes: normal inspection, EOMI ENT: hearing grossly normal, pharynx normal Neck: supple, no JVD Respiratory/Chest: chest non-tender, normal breath sounds Cardiovascular: regular rate, rhythm, no gallop Abdomen / GI: normal bowel sounds, soft Extremities: no calf tenderness, normal capillary refill Neurologic/Psychiatric: no motor/sensory deficits, alert Skin: normal color, warm/dry Hospital Course Ms. Ramirez is a 70 y/o female with PMHx of HTN, HLD, T2DM, R Breast CA S/P R Mastectomy and Stem Cell Transplant, and RLL Lung Nodule who is a direct admission from [facility] after treatment for acute CHF and NSTEMI. Acute Diastolic Congestive Heart Failure and NSTEMI and hx HTN: No Documented hx CHF Appears acute CHF resulting from NSTEMI ASA 81 mg daily Atorvastatin 80 mg daily Carvedilol 6.25 mg BID and Lisinopril 10 mg daily start isosorbide, plavix Cardiology following s/p catheterization, severe CAD/multivessel disease, may need CABG, however due to the nodule, had oncology evaluation to justify need of CABG in case if this is cancer, the nodule could be biopsied if clinically necessary, however may just need to repeat CT chest in few months appreciated dr Peters input, pt wants to make an appt with [facility] or [facility] for cardiothoracic surgeon T2DM: HbA1c 8.8 Patient reports PCP is aware and is planning of making adjustments Hold Metformin due to CTA in [place] and possible Cath cont SSI R Breast CA S/P R Mastectomy: cont Femara 2.5 mg daily, non-formulary and patient may take own med d/c home and f/u at [place] CT surgeon, f/u PCP 2 weeks Total Time Spent: Greater than 30 minutes This includes examination of the patient, discharge planning, medication reconciliation, and communication with other providers. Discharge Instructions Please refer to the electronic Patient Visit Report (Discharge Instructions) for additional information. Additional Copies To Jarocho Guadarrama M.D.
[2016-06-12 11:36] VITALS: BP 110/56; PULSE 77; TEMP 36.9; O2SAT 97
[2016-06-12 11:41] VITALS: BP 110/56; PULSE 77; TEMP 36.9; O2SAT 97
--- NOTE | 2016-06-12 12:00 | PROGRESS NOTE ---
DATE: 06/12/2016 SUBJECTIVE: The patient was seen by me this morning in her telemetry unit room. She is feeling well. She denies any chest pain or chest tightness. No other anginal type symptoms. No dyspnea at rest or with walking around the unit. No orthopnea or PND overnight. No palpitations, lightheadedness, syncope, abdominal pain, nausea, headache, arm or hand pain, or leg pain. Overall, she is feeling well. No bleeding complaints. No skin rash complaints. No fevers or chills. CURRENT MEDICATIONS: Carvedilol 6.25 mg b.i.d., spironolactone 25 mg daily, clopidogrel 75 mg daily, isosorbide mononitrate 30 mg daily, aspirin 81 mg daily, lisinopril 10 mg daily, letrozole 2.5 mg daily, atorvastatin 80 mg daily, famotidine 40 mg daily, and several p.r.n. medications. ALLERGIES: No known drug allergies. Monitor history over the past 24 hours reviewed by me. No arrhythmias. Sinus rhythm. PHYSICAL EXAMINATION: VITAL SIGNS: At 08:08 a.m. this morning with oral temperature 36.8, pulse 81, blood pressure 134/57, and pulse oximetry 96%. Overnight, her blood pressure was 104/62 and pulse 69. This was while she was at bed rest. GENERAL APPEARANCE: Normal. No distress. She is sitting in a chair by her bedside. NECK: No jugular venous distention. LUNGS: Normal respiratory effort. Clear. No rales or wheezes. HEART: Regular rate and rhythm. S1 and S2 normal. No S3 or S4. 2/6 systolic murmur left upper, right and left sternal border as well as left lower sternal border. No diastolic murmur or rub. ABDOMEN: Soft. Nontender. No palpable masses or organomegaly. No bruits. EXTREMITIES: No pretibial edema. Right radial and ulnar catheterization sites are without bleeding or hematoma. Nontender. No evidence of infection. Radial and ulnar pulses palpable. No evidence for arterial insufficiency in right hand. No swelling or edema in the right hand or fingers today. Right femoral catheterization site without bleeding. No tenderness. Right dorsalis pedis and posterior tibial pulses palpable. NEUROLOGIC: Alert and oriented x3. Motor grossly intact. PSYCHIATRIC: Affect is normal. DATA: Electrocardiogram performed yesterday morning with sinus rhythm at a rate of 80 beats per minute. T-wave inversions in leads I, II, aVL, V2-V6. Biphasic T waves in III and aVF. LABORATORY DATA: Today with hemoglobin 11.5, platelet count 142, and WBC 5.05. Metabolic profile with sodium 143, potassium 3.8, chloride 110, carbon dioxide 25, BUN 15, creatinine 0.81, and random glucose 216. ASSESSMENT: 1. Status post small non-ST elevation myocardial infarction. No anginal symptoms at rest or walking in the [place]. 2. Mildly reduced overall left ventricular systolic function. No current signs or symptoms of congestive heart failure. 3. Heart rate and blood pressure under better control today. No adverse reactions with increase carvedilol dose or addition of isosorbide mononitrate to her regimen. 4. No bleeding complaints on dual antiplatelet therapy. 5. Stable renal function. 6. Hemoglobin has decreased slightly from yesterday. She has had repeated blood draws. No symptoms of GI bleeding. 7. Cardiac catheterization with left main and 3-vessel coronary artery disease. Extensive coronary artery calcifications. 8. History of breast cancer. Status post right mastectomy. 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 9. Recurrent right lower lobe nodule. Etiology of this is yet to be determined. PLAN: 1. From a cardiac standpoint, the patient could be discharged home. 2. Followup visit with me will be scheduled in 1-2 weeks following discharge. 3. Continue current cardiac medications and doses. 4. Continue dual antiplatelet therapy at this time. If she does undergo CABG surgery, it would need to be discontinued 5 days before surgery. She should remain on aspirin therapy uninterrupted. 5. The patient states that an appointment has been made for her to see a CT surgeon at [facility] in [place] next week. Await the recommendations of the CT surgeon. CT surgeon can better evaluate her surgical risk and her suitability for bypass surgery. MAURICIO
== END 2016-06-12 12:23 | disposition home or self-care (01) | DRG 280 ==
LOC: C.MSICU 12:01 → C.2E 06-11 01:09
PROVIDERS: ADMIT Family Medicine; ATTEND Hospitalist
PROC: B2111ZZ Fluoroscopy of Multiple Coronary Arteries using Low Osmolar Contrast (ICD-10-PCS; 2016-06-10)
PROC: B2151ZZ Fluoroscopy of Left Heart using Low Osmolar Contrast (ICD-10-PCS; 2016-06-10)
PROC: 4A023N7 Measurement of Cardiac Sampling and Pressure, Left Heart, Percutaneous Approach (ICD-10-PCS; principal; 2016-06-10 12:09)
DX: I21.4 Non-ST elevation (NSTEMI) myocardial infarction (principal); I50.31 Acute diastolic (congestive) heart failure; I42.9 Cardiomyopathy, unspecified; I10 Essential (primary) hypertension; E78.5 Hyperlipidemia, unspecified; E11.9 Type 2 diabetes mellitus without complications; Z83.3 Family history of diabetes mellitus; Z82.49 Family history of ischemic heart disease and other diseases of the circulatory system; Z87.891 Personal history of nicotine dependence; Z79.82 Long term (current) use of aspirin; Z79.899 Other long term (current) drug therapy; Z79.84 Long term (current) use of oral hypoglycemic drugs; R91.1 Solitary pulmonary nodule; I35.1 Nonrheumatic aortic (valve) insufficiency; I25.119 Atherosclerotic heart disease of native coronary artery with unspecified angina pectoris; Z78.0 Asymptomatic menopausal state; Z85.3 Personal history of malignant neoplasm of breast; Z85.118 Personal history of other malignant neoplasm of bronchus and lung; R55 Syncope and collapse; Z90.11 Acquired absence of right breast and nipple; R00.1 Bradycardia, unspecified

== ENCOUNTER → 2016-07-17 | Outpatient (CLI) | payer OTHER ==
[~2016-07-17] MED LIST changes: +CRG625 PO; -EZET10TA38 PO; +IMDSR30 PO; -LISI-729 PO; +LPT40 PO; +LSN10 PO; -MELO15TA3 PO; +PLV75 PO; +SPR25 PO
[2016-07-17 10:43] LABS: HEMATOCRIT 28.7 % (37-47); MEAN CELL VOLUME 84.4 fL (80-100); MEAN CORPUSCULAR HEMOGLOBIN 27.1 pg (25-34); MEAN CORPUSCULAR HGB CONC 32.1 g/dl (32-36); PLATELET COUNT 324 K/uL (130-400); WHITE BLOOD COUNT 6.84 K/uL (4.8-10.8)
[2016-07-17 10:58] LABS: ALT/SGPT 12 U/L (12-78); BLOOD UREA NITROGEN 16 mg/dl (7-18); BUN/CREATININE RATIO 16.3 (10-20); CARBON DIOXIDE 27 mmol/L (21-32); CHLORIDE 101 mmol/L (98-107); GLUCOSE 209 mg/dl (70-99); POTASSIUM 3.6 mmol/L (3.5-5.1); SODIUM 140 mmol/L (136-145)
[2016-07-17 11:01] LABS: ALB/GLOB RATIO 0.8 (0.9-2); ALKALINE PHOSPHATASE 81 U/L (45-117); AST/SGOT 7 U/L (15-37)
== END | disposition home or self-care (01) ==
LOC: C.LAB1850 09:31
PROVIDERS: ATTEND Physician Assistant
DX: I25.10 Atherosclerotic heart disease of native coronary artery without angina pectoris (principal)

== ENCOUNTER → 2016-09-01 | Outpatient (CLI) | payer OTHER ==
--- NOTE | 2016-09-02 13:15 | MAMMOGRAPHY REPORT ---
BILATERAL DIGITAL SCREENING MAMMOGRAM TOMOSYNTHESIS WITH CAD: 09/01/2016 CLINICAL HISTORY: Asymptomatic. Personal history of right breast cancer status post treatment. TECHNIQUE: Breast tomosynthesis in addition to standard 2D mammography was performed. Current study was also evaluated with a Computer Aided Detection (CAD) system. COMPARISON: Comparison is made to exams dated: 08/30/2015 mammogram, 08/28/2014 mammogram, 08/25/2013 m ammogram, 08/25/2012 mammogram, 08/25/2011 mammogram, and 08/21/2010 mammogram - [facility] ter. BREAST COMPOSITION: There are scattered areas of fibroglandular density in both breasts. FINDINGS: There is asymmetry of the size of the breasts, left greater than right, likely secondary t o prior treatment within the right breast. There is new diffuse trabecular edema and mild diffuse b ilateral skin thickening. No suspicious mass, architectural distortion or cluster of suspicious jairon rocalcifications is seen. IMPRESSION: ACR BI-RADS CATEGORY 1: NEGATIVE 1. There is no mammographic evidence of malignancy. A 1 year screening mammogram is recommended. 2. There is new mild bilateral skin thickening and diffuse trabecular edema of the breasts, which c an be secondary to a systemic process such as congestive heart failure or fluid overload. Clinical correlation is recommended. The patient will receive written notification of the results. Approximately 10% of breast cancers are not detected with mammography. A negative mammographic repor t should not delay biopsy if a clinically suggestive mass is present. Nanda Whitney M.D. ay/:09/01/2016 16:55:21 Organ Teacher: Radha MCKEON(Finn)(M), [facility] letter sent: Normal 1/2 BI-RADS Code: ACR BI-RADS Category 1: Negative
== END | disposition home or self-care (01) ==
LOC: C.MAMM 10:35
PROVIDERS: ATTEND Nurse Practitioner Family
DX: Z12.31 Encounter for screening mammogram for malignant neoplasm of breast (principal); Z85.3 Personal history of malignant neoplasm of breast

== ENCOUNTER → 2016-12-30 | Outpatient (CLI) | payer OTHER ==
[~2016-12-30] MED LIST changes: +OPTIRAY 320 IV PRN
--- NOTE | 2016-12-30 11:56 | DIAGNOSTIC IMAGING REPORT ---
CT OF THE CHEST WITH IV CONTRAST CLINICAL HISTORY: BREAST CA COMPARISON STUDY: 05/19/2016 TECHNIQUE: Following the IV administration of 93 mL of Optiray-320, CT of the thorax was performed from the thoracic inlet to the lung bases. Images are reviewed in the axial, sagittal, and coronal planes. IV contrast was administered without complication. A dose lowering technique was utilized adhering to the principles of ALARA. CT DOSE: 482.33 mGy.cm FINDINGS: Thyroid: There is a 9 mm left lobe thyroid nodule. Thoracic aorta: There is mild ectasia of the ascending thoracic aorta which measures 37 mm Pulmonary vasculature: The pulmonary trunk is normal in caliber. There are no central filling defects identified to suggest pulmonary embolus. Note that this examination was not protocoled for the evaluation of pulmonary emboli. HEART: There are coronary artery calcifications. There are postsurgical changes of a midline sternotomy and coronary artery bypass grafting. Lungs and pleural spaces: There is slight increase in the size of the left pleural effusion. There are persistent left paramediastinal fibrotic changes in the distribution of post radiation changes. There is soft tissue occlusion of the left upper lobe bronchus. The right lung appears clear. Mediastinum: There is no evidence of pathologic mediastinal adenopathy. Dana: There is no evidence of pathologic hilar adenopathy. Axilla: There are surgical clips the right axillary region. There is no pathologic axillary lymphadenopathy. Upper abdomen: Partially visualized upper abdominal viscera is within normal limits. There are postsurgical changes of a right mastectomy Skeletal structures: There are chronic left-sided rib deformities. No destructive lesions are visualized. There is an old midthoracic compression deformity. IMPRESSION: 1. Postthoracotomy changes on the left 2. 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 Increasing small left pleural effusion 4. Occlusion of the left upper lobe bronchus 5. No evidence of pathologic adenopathy Electronically signed by: Vargas Peña M.D. 12/30/2016 11:54 AM Dictated Date/Time: 12/30/2016 11:42 AM
== END | disposition home or self-care (01) ==
LOC: C.CTS 11:20
PROVIDERS: ATTEND Internal Medicine Hematology & Oncology
DX: C50.919 Malignant neoplasm of unspecified site of unspecified female breast (principal)

== ENCOUNTER → 2017-03-17 | Outpatient (CLI) | payer OTHER ==
[~2017-03-17] MED LIST changes: -OPTIRAY 320 IV PRN
== END | disposition home or self-care (01) ==
LOC: C.MAMM 11:11
PROVIDERS: ATTEND Nurse Practitioner Family
DX: C50.919 Malignant neoplasm of unspecified site of unspecified female breast (principal); M85.831 Other specified disorders of bone density and structure, right forearm; M85.832 Other specified disorders of bone density and structure, left forearm

== ENCOUNTER → 2017-04-27 | Outpatient (CLI) | payer OTHER ==
[~2017-04-27] MED LIST changes: +ASPCH81X PO; +ATOR-26 PO; +CARV12.52 PO; +ERGO500037 PO; +FAMO20TA9 PO; +GLIM1TAB2 PO; +SITA50TA5 PO
[2017-04-27 13:28] LABS: HEMATOCRIT 37.5 % (37-47); MEAN CORPUSCULAR HEMOGLOBIN 25.9 pg (25-34); MEAN PLATELET VOLUME 9.6 fL (7.4-10.4); PLATELET COUNT 215 K/uL (130-400); RED CELL DISTRIBUTION WIDTH SD 49.4 fL (36.4-46.3); WHITE BLOOD COUNT 8.23 K/uL (4.8-10.8)
[2017-04-27 13:43] LABS: ALBUMIN 3.6 gm/dl (3.4-5.0); ALT/SGPT 17 U/L (12-78); AST/SGOT 12 U/L (15-37); BLOOD UREA NITROGEN 17 mg/dl (7-18); CALCIUM 9.5 mg/dl (8.5-10.1); CARBON DIOXIDE 31 mmol/L (21-32); CREATININE 1.02 mg/dl (0.60-1.20); GLUCOSE 184 mg/dl (70-99); POTASSIUM 3.8 mmol/L (3.5-5.1); SODIUM 135 mmol/L (136-145)
[2017-04-27 13:46] LABS: ALKALINE PHOSPHATASE 75 U/L (45-117); TOTAL PROTEIN 7.8 gm/dl (6.4-8.2)
== END | disposition home or self-care (01) ==
LOC: C.LAB1850 11:49
PROVIDERS: ATTEND Physician Assistant
DX: I25.10 Atherosclerotic heart disease of native coronary artery without angina pectoris (principal)

== ENCOUNTER → 2017-05-15 | Day surgery (SDC) | payer OTHER ==
[2017-04-28 13:39] VITALS: BMI 33.0
[~2017-05-15] VITALS: Ht 165.1 cm; Wt 91.4 kg
[~2017-05-15] MED LIST changes: -ASPI81TA28 PO; -CALC500C70 PO; -CRG625 PO; -ERGO1CAP35 PO; -FAMO40TA6 PO; -IMDSR30 PO; +LIDOCAINE HCL 2% 2 ML VIAL (20MG/ML) ONE; -LPT40 PO; -LSN10 PO; -METF500T5 PO; -PLV75 PO; +PROPOFOL IV EMULSION 10 MG/ML 20 ML VIAL IV ONE; +SODIUM CHLORIDE 0.9% 500ML 500 ML IV ONE; -SPR25 PO; -[UNRECOGNIZED DRUG - OTHER]
[2017-05-15 08:23] VITALS: Ht 165.1 cm; Wt 91.4 kg
--- NOTE | 2017-05-15 08:43 | Endo History and Physical ---
History & Physical Date of Service: May 15, 2017. Chief Complaint: BREAST CANCER, ANEMIA Referring Physician: DR ADENIKE SUTHERLAND History of Present Illness 71 yo CF who presents for colonoscopy secondary to anemia. Past Surgical History Hx Cardiac Surgery: Yes (CABG-2 VESSELS AND AVR) Hx Internal Defibrillator: No Hx Pacemaker: No Hx Abdominal Surgery: Yes (HYSTERECTOMY) Hx of Implantable Prosthesis: No Hx Post-Op Nausea and Vomiting: No Hx Cancer Surgery: Yes (RT MASTECTOMY) Hx Thoracic Surgery: No Hx Orthopedic: Yes (LUMBAR FUSION) Hx Urinary Tract Surgery: No Family History None Social History Smoking Status: Former Smoker Hx Substance Use: No Hx Alcohol Use: Yes (RARELY) Allergies Coded Allergies: BEE STING (Verified Allergy, Unknown, ANAPHYLAXIS, 04/28/17) NO KNOWN DRUG ALLERGIES (Verified Allergy, Unknown, ., 04/28/17) Current Medications Reported Home Medications Medications Dose Route/Sig Max Daily Dose Days Date Category Vitamin D 33898 Unit (Ergocalciferol) 50,000 Unit Cap 50,000 Unit PO WK 04/28/17 Reported Aspirin Chewable (Aspirin) 81 Mg Chew 81 Mg PO HS 04/28/17 Reported Glimepiride 1 Mg Tab 1 Tab PO QAM 04/28/17 Reported Janumet (Sitagliptin-Metformin Hcl) 1 Tab Tab 1 Tab PO BID 04/28/17 Reported Pepcid (Famotidine) 20 Mg Tab 20 Mg PO QAM 04/28/17 Reported Lipitor (Atorvastatin Calcium) 80 Mg Tab 80 Mg PO HS 04/28/17 Reported Coreg (Carvedilol) 12.5 Mg Tab 12.5 Mg PO BID 04/28/17 Reported Femara (Letrozole) 2.5 Mg Tab 2.5 Mg PO QD@08 10/07/12 Reported Vital Signs Weight (Kilograms): 91.36 Height (Feet): 5 Height (Inches): 5 Date Time Temp Pulse Resp B/P (MAP) Pulse Ox O2 Delivery O2 Flow Rate FiO2 05/15/17 08:22 36.7 63 20 159/74 (102) 98 Room Air Physical Exam General Appearance: WD/WN, no apparent distress Respiratory/Chest: Auscultation: breath sounds normal Cardiovascular: Heart Auscultation: RRR Abdomen: Bowel Sounds: normal Inspection & Palpation: soft, non-distended, no tenderness, guarding & rebound Assessment and Plan Assessment: 71 yo CF who presents for colonoscopy secondary to anemia. Plan: Proceed with colonoscopy.
--- NOTE | 2017-05-15 09:26 | Discharge Instructions ---
Endoscopy Patient Instructions Date / Procedure(s) Performed May 15, 2017. Colonoscopy Allergy Information Coded Allergies: BEE STING (Verified Allergy, Unknown, ANAPHYLAXIS, 04/28/17) NO KNOWN DRUG ALLERGIES (Verified Allergy, Unknown, ., 04/28/17) Discharge Date / Findings May 15, 2017. Diverticulosis Internal hemorrhoids Medication Instructions Stopped Medication(s): CONTINUES ON ASPIRIN. LAST DOSE 05/15/17 OK to resume all medications as prescribed Reported Home Medications Medications Dose Route/Sig Max Daily Dose Days Date Category Vitamin D 53381 Unit (Ergocalciferol) 50,000 Unit Cap 50,000 Unit PO WK 04/28/17 Reported Aspirin Chewable (Aspirin) 81 Mg Chew 81 Mg PO HS 04/28/17 Reported Glimepiride 1 Mg Tab 1 Tab PO QAM 04/28/17 Reported Janumet (Sitagliptin-Metformin Hcl) 1 Tab Tab 1 Tab PO BID 04/28/17 Reported Pepcid (Famotidine) 20 Mg Tab 20 Mg PO QAM 04/28/17 Reported Lipitor (Atorvastatin Calcium) 80 Mg Tab 80 Mg PO HS 04/28/17 Reported Coreg (Carvedilol) 12.5 Mg Tab 12.5 Mg PO BID 04/28/17 Reported Femara (Letrozole) 2.5 Mg Tab 2.5 Mg PO QD@08 10/07/12 Reported Provider Instructions Activity Restrictions - No exercising or heavy lifting for 24 hours. - Do not drink alcohol the day of the procedure. - Do not drive a car or operate machinery until the day after the procedure. - Do not make any important decisions or sign important papers in 24 hours after the procedure. Following Day: - Return to full activity which may include returning to work/school. Diet Start your diet with liquids and light foods (jello, soup, juice, toast). Then eat your usual diet if not nauseated. Treatment For Common After Affects For mild abdominal pain, bloating, or excessive gas: - Rest - Eat lightly - Lie on right side Follow-Up Information Follow-up with DR ROSEN, DR ADENIKE PETTY as scheduled Anesthesia Information What You Should Know You have had a procedure that required some medicine to reduce anxiety and discomfort. This treatment is called moderate sedation. After receiving the treatment, you may be sleepy, but you will be able to breathe on your own. The effects of the treatment may last for several hours. Follow these instructions along with Activity/Diet recommendations noted above: * Do NOT do anything where dizziness or clumsiness would be dangerous. * Rest quietly at home today, then you can be up and about tomorrow. * Have a responsible person stay with you the rest of today. * You may have had an I.V. today. If so, you may take the dressing off later today. Recommendations Call your doctor if: * Trouble breathing * Continuous vomiting for more than 24 hours * Temperature above 101 degrees * Severe abdominal pain or bloating * Pain not relieved by pain medicine ordered * There is increased drainage or redness from any incision * A large amount of rectal bleeding greater than 2-3 tablespoons. (If you had a polyp/s removed or have hemorrhoids, a small amount of blood - from the rectum is to be expected.) * You have any unanswered questions or concerns. IN THE EVENT OF A SERIOUS EMERGENCY, GO TO THE NEAREST EMERGENCY ROOM Your discharge instructions were prepared by provider Silver Johns. Patient Instructions Signature Page Nadia Ramirez Patient (or Guardian) Signature/Date: I have read and understand the instructions given to me by my caregivers. Caregiver/RN/Doctor Signature/Date: The above-named patient and/or guardian has received patient instructions on this date. + Original Patient Signature Page (only) stays with chart. Please make copy for patient.
--- NOTE | 2017-05-15 09:29 | Anesthesiology Progress Note ---
Anesthesia Post Op Note Date & Time May 15, 2017 at 09:29 Vital Signs Pain Intensity: 0 Vital Signs Past 12 Hours Date Time Temp Pulse Resp B/P (MAP) Pulse Ox O2 Delivery O2 Flow Rate FiO2 05/15/17 09:20 59 20 106/54 (71) 99 Room Air 05/15/17 08:22 36.7 63 20 159/74 (102) 98 Room Air Notes Mental Status: alert / awake / arousable, participated in evaluation Pt Amnestic to Procedure: Yes Nausea / Vomiting: adequately controlled Pain: adequately controlled Airway Patency, RR, SpO2: stable & adequate BP & HR: stable & adequate Hydration State: stable & adequate Anesthetic Complications: no major complications apparent
--- NOTE | 2017-05-15 09:31 | GI REPORT ---
Procedure Date: 05/15/2017 8:44 AM Procedure: Colonoscopy Indications: Iron deficiency anemia Medicines: Monitored Anesthesia Care Complications: No immediate complications. Estimated Blood Loss: Estimated blood loss: none. Procedure: Pre-Anesthesia Assessment: - Prior to the procedure, a History and Physical was performed, and patient medications and allergies were reviewed. The patient's tolerance of previous anesthesia was also reviewed. The risks and benefits of the procedure and the sedation options and risks were discussed with the patient. All questions were answered, and informed consent was obtained. Prior Anticoagulants: The patient has taken aspirin, last dose was day of procedure. ASA Grade Assessment: III - A patient with severe systemic disease. After reviewing the risks and benefits, the patient was deemed in satisfactory condition to undergo the procedure. After I obtained informed consent, the scope was passed under direct vision. Throughout the procedure, the patient's blood pressure, pulse, and oxygen saturations were monitored continuously. The scope was introduced through the anus and advanced to the terminal ileum. The colonoscopy was performed without difficulty. The patient tolerated the procedure well. The quality of the bowel preparation was good. The terminal ileum, ileocecal valve, appendiceal orifice, and rectum were photographed. Findings: The perianal and digital rectal examinations were normal. Multiple small-mouthed diverticula were found in the sigmoid colon. Non-bleeding internal hemorrhoids were found during retroflexion. The hemorrhoids were small. Impression: - Diverticulosis in the sigmoid colon. - Non-bleeding internal hemorrhoids. - No specimens collected. Recommendation: - Resume previous diet. - Continue present medications. - No repeat colonoscopy due to age and the absence of advanced adenomas. - Return to referring physician as previously scheduled. Silver Johns, 05/15/2017 9:31:02 AM This report has been signed electronically. Note Initiated On: 05/15/2017 8:44 AM I attest to the content of the Intraoperative Record and orders documented therein, exceptions below
[2017-05-15 10:00] VITALS: BP 129/63; PULSE 60; O2SAT 99
== END | disposition home or self-care (01) ==
LOC: C.GI 07:55
PROVIDERS: ATTEND Internal Medicine
DX: D50.9 Iron deficiency anemia, unspecified (principal); K64.8 Other hemorrhoids; I25.10 Atherosclerotic heart disease of native coronary artery without angina pectoris; I10 Essential (primary) hypertension; Z95.1 Presence of aortocoronary bypass graft; E11.9 Type 2 diabetes mellitus without complications; Z85.3 Personal history of malignant neoplasm of breast; Z98.41 Cataract extraction status, right eye; Z98.42 Cataract extraction status, left eye; Z90.710 Acquired absence of both cervix and uterus; Z90.11 Acquired absence of right breast and nipple; Z98.890 Other specified postprocedural states; Z87.891 Personal history of nicotine dependence; Z79.82 Long term (current) use of aspirin; Z79.899 Other long term (current) drug therapy

== ENCOUNTER → 2017-09-03 | Outpatient (CLI) | payer OTHER ==
[~2017-09-03] MED LIST changes: -LIDOCAINE HCL 2% 2 ML VIAL (20MG/ML) ONE; -PROPOFOL IV EMULSION 10 MG/ML 20 ML VIAL IV ONE; -SODIUM CHLORIDE 0.9% 500ML 500 ML IV ONE
--- NOTE | 2017-09-03 15:32 | MAMMOGRAPHY REPORT ---
BILATERAL DIGITAL SCREENING MAMMOGRAM TOMOSYNTHESIS WITH CAD: 09/03/2017 CLINICAL HISTORY: Asymptomatic. Personal history of breast cancer. TECHNIQUE: Breast tomosynthesis in addition to standard 2D mammography was performed. Current study was also evaluated with a Computer Aided Detection (CAD) system. COMPARISON: Comparison is made to exams dated: 09/01/2016 mammogram, 08/30/2015 mammogram, 08/28/2014 m ammogram, 08/25/2013 mammogram, 08/25/2012 mammogram, and 08/25/2011 mammogram - [facility] er. BREAST COMPOSITION: There are scattered areas of fibroglandular density in both breasts. FINDINGS: No suspicious masses, calcifications, or areas of architectural distortion are noted in ei ther breast. There has been no significant interval change compared to prior exams. There are stable postsurgical changes in the right breast. Scattered bilateral benign-appearing calcifications are a gain noted. IMPRESSION: ACR BI-RADS CATEGORY 2: BENIGN There is no mammographic evidence of malignancy. A 1 year screening mammogram is recommended. The pa tient will receive written notification of the results. Approximately 10% of breast cancers are not detected with mammography. A negative mammographic report should not delay biopsy if a clinically suggestive mass is present. Viviane Chapman M.D. /:09/03/2017 12:27:15 Potline Monitor: Shanti WILLIS)(M), [facility] letter sent: Normal 1/2 BI-RADS Code: ACR BI-RADS Category 2: Benign
== END | disposition home or self-care (01) ==
LOC: C.MAMM 10:16
PROVIDERS: ATTEND Nurse Practitioner Family
DX: Z12.31 Encounter for screening mammogram for malignant neoplasm of breast (principal); Z90.11 Acquired absence of right breast and nipple

== ENCOUNTER 2021-10-20 17:47 | Observation (INO) ==
--- NOTE | 2021-10-20 20:09 | History & Physical Report ---
Date of Service October 20, 2021 Assessment & Plan (1) CHF exacerbation: Plan: 75 year old female w/ PMHx of diabetes, CAD s/p cabg, HTN, HLD, and aortic valve replacement who presents as a direct admit from [place] for 3-4 days of dyspnea and LE edema most likely from CHF exacerbation. She does have hstroponin elevation, but denies any chest pain. - 07/2019 dobutamine stress echo w/ EF 60% - TTE ordered for AM - Continue diuresis - trend hstrop - repeat labs and cxr in AM - heparin drip not indicated (2) Diabetes mellitus type II, controlled: Plan: - A1c 6.8 02/2021 - check A1c in AM - home PO regimen held. SSI + basal while inpatient (3) CAD (coronary artery disease): Plan: - follows cardiology Dr. Amaya. per records, hx of multivessel CAD. S/P NSTEMI and CABG x2 in 05/2016, S/P bioprosthetic AVR at the time of CABG (4) Iron deficiency anemia: Plan: - hx of. check cbc in AM (5) Hypertension: Plan: - continue home regimen (6) Dyslipidemia: Plan: - continue home regimen (7) Congestive heart failure: Plan: - see above (8) History of breast cancer: Plan: - w/ hx of lung mets, treated - continue home letrozole if able to obtain home supply (9) GERD (gastroesophageal reflux disease): Plan: - continue home regimen Plan: FEN/GI: DM2, low Na, HH ppx: sq heparin code: full dispo: med tele Admission and Anticipated Discharge Date Admission Date: October 20, 2021 History of Present Illness Chief Complaint: dyspnea Primary Care Provider: ANGIE Haines 75 year old female w/ PMHx of diabetes, CAD s/p cabg, HTN, HLD, and aortic valve replacement who presents w/ 3-4 days of dyspnea on exertion. She states she takes Lasix 40mg PO every other day usually and has missed a few doses this week. She endorses some orthopnea as well this and went to [facility] for her dyspnea. Denies any chest pain. She took baby asa and nitro because she felt similar during her previous RI and notes the nitro provided some relief. She states she is compliant w/ other meds. Legs feel achy and heavy. Chronic mild neuropathy. Denies change in diet habits. States that she eats salt, but not excessively. Breakfast: toast or egg. Lunch: chipped ham sandwich. Fruit cups. Dinner: eats out. home: hamburger, hot dogs, sour kraut. Cough earlier in day felt a little wet, now feels dry. She states feels almost back to baseline. Received Lasix and heparin drip at [place]. She was direct admit from [place] because of concern for NSTEMI and need for possible cardiology intervention. Outside records: ecg x3. mod ivcd. rightward leading axis. nsr cbc normal. wbc 9. hb 13. slight neutrophil predom. cmp: normal electrolytes. Cr 1.1. glucose 192. BNP 682 (ref 0-100) [place] ed course: lasix iv 40. heparin drip. vss. o2 sat 94. hr 86. rr 17. took nitro w/ improvement. states felt like prior RI. cxr: moderate congestive heart failure. interpreted by ed provider. hstrop: normal->55->100 Allergies Allergy/AdvReac Type Severity Reaction Status Date / Time bee venom protein (honey bee) Allergy Severe ANAPHYLAXIS Verified 09/26/21 09:39 Home Medications Medication Instructions Recorded Confirmed Type aspirin 81 mg tablet,delayed 81 mg PO DAILY #30 tab 12/31/18 10/20/21 Rx release famotidine 40 mg tablet 40 mg PO DAILY tab 12/31/18 10/20/21 History letrozole 2.5 mg tablet 2.5 mg PO DAILY 01/03/19 10/20/21 History cholecalciferol (vitamin D3) 50 2,000 units PO DAILY cap 11/28/19 10/20/21 History mcg (2,000 unit) capsule potassium chloride 20 mEq 20 meq PO PRN #30 tab 07/01/21 10/20/21 Rx tablet,extended release atorvastatin 80 mg tablet 80 mg PO HS #90 tab 07/09/21 10/20/21 Rx glimepiride 2 mg tablet 2 mg PO QAM #90 tab 07/30/21 10/20/21 Rx metformin 1,000 mg tablet 1,000 mg PO BID #180 tab 08/20/21 10/20/21 Rx alendronate 35 mg tablet 35 mg PO WK 09/26/21 10/20/21 History montelukast 10 mg tablet 10 mg PO DAILY #90 tab 09/26/21 10/20/21 Rx (Singulair) furosemide 40 mg tablet 40 mg PO DAILY PRN #90 tab 10/01/21 10/20/21 Rx carvedilol 6.25 mg tablet 12.5 mg PO BID #360 tab 10/16/21 10/20/21 Rx albuterol sulfate 90 mcg/actuation 1 inh INHALATION QID PRN 10/20/21 10/20/21 History aerosol inhaler budesonide-formoterol HFA 80 2 puff INHALATION BID PRN 10/20/21 10/20/21 History mcg-4.5 mcg/actuation aerosol inhaler (Symbicort) fluticasone propionate 50 1 spray INTRANASAL DAILY PRN 10/20/21 10/20/21 History mcg/actuation nasal spray,suspension (Flonase Allergy Relief) tiotropium bromide 1.25 2 puff INHALATION DAILY 10/20/21 History mcg/actuation mist for inhalation (Spiriva Respimat) Past Med/Surg History Medical History (Updated 10/21/21 @ 02:14 by Jarocho Pollard MD) Breast cancer CAD (coronary artery disease) Congestive heart failure Dyslipidemia Fatigue Hypertension Iron deficiency anemia NSTEMI (non-ST elevated myocardial infarction) Surgical History History of aortic valve replacement History of back surgery History of cataract surgery History of coronary artery bypass graft History of right mastectomy Family History (Updated 10/20/21 @ 20:21 by Jarocho Pollard MD) Mother Breast cancer Father Myocardial infarction in his 40s Denies family history of Colon cancer Ovarian cancer Prostate cancer Social History Smoking Status: Never smoker Number of Years Since Quit: 40; Second Hand Exposure: No; Hx Alcohol Use: Yes Hx Substance Use: No Preferred Language: Portuguese Communication Ability: Effective Visual Impairment: No Limitations Hearing Ability: Normal Biometrics Analyst Required: No Beliefs That Will Affect Care: None marital status: Single Current Living Situation: Alone current occupational status: retired Other Information That Helps Us Care for You: No Feels Safe at Home: Yes Safety Concerns: Feels Safe At This Time Childhood Exposure to Second-Hand Smoke: No caffeine: Yes (1 cup of coffee daily) Dental Care, Regularly: Yes Physical Activity Frequency: 1-2 Times per Week Seatbelt Use: always Sunscreen Use: No Assistive Devices: Glasses Review of Systems Review of Systems: All systems reviewed & are unremarkable except as noted in HPI & below Physical Exam Physical Exam: General: A&Ox4. NAD. Cooperative. HEENT: Atraumatic, normocephalic. EOMI Pulm: CTAB. -wheezes, -rales, -rhonchi. Slightly diminished at bases. Symmetrical chest rise. No respiratory distress. Cardiac: RRR, crisp S2. Radial pulses intact and symmetrical. Abdominal: Nontender, nondistended, soft. Integ: Warm, dry, intact Results & Data Results & Data ([facility]) Vital Signs (Past 12 Hours) Temp Pulse Resp BP Pulse Ox 36.7 C 81 16 116/70 96 10/21/21 00:20 10/21/21 00:20 10/21/21 00:20 10/21/21 00:20 10/21/21 00:20 Laboratory Results Intake and Output 10/20/21 10/20/21 10/21/21 14:59 22:59 06:59 Other: Weight 97.1 kg Weight Measurement Method Standing Scale Patient Weight 10/21/21 06:59 Weight 97.1 kg Code Status & VTE Plan Code Status full VTE Prophylaxis Plan VTE Prophylaxis will be ordered: Yes Supervising Physician Co-Signing Physician Notes Pt seen/examined in conjunction with resident MD Jarocho Pollard. Orders and plan of admission formulated with resident. 75 y/o F Hx HTN, HLD, DM, CAD, AVR, diastolic CHF, breast Ca with lung mets and history of STT. She was transferred from [place] due to concern for ACS. She presented with progressive SOB and had an elevated trop without CP. EKG did not support acute ischemia. O/E General: Pleasant, overweight, elderly F, AAO x 3, no distress ENT: No erythema or exudates, no thrush Eyes: HUSSAIN, EOMI Head and neck: Normocephalic, atraumatic, No JVD, neck is supple. Chest/heart: Nontender, S1,2, RRR, no murmurs, no gallops Lungs: CTAB, no wheezing or crackles following Lasix administration. Abdomen: Nontender, nondistended, BS+ Neuro: AAO x 3, speech is clear, no unilateral weakness or loss of sensation, coordination intact. Musculoskeletal: No joint inflammation, muscle tenderness, FROM Skin: No acute rashes or ulcers Extremities: No clubbing, cyanosis. + Edema. A/P 1) CHF exacerbation - diuresis, carvedilol, I/O, daily weights, repeat echo. 2) CAD - elevated trop - believe this to be due to CHF and EKG does not support acute ischemia. Trend trop AM, echo ordered. Cont metoprolol, statin, ASA. 3) DM - sliding scale 4) HTN, HLD - metoprolol, atorvastatin. Total time for this admission including review of labs, meds, imaging, records, discussion/exam with pt - 42 min - Resident Activity Tracking Resident Involvement: Resident Care Provided Care Provided: Adult Hospital Medicine
[2021-10-20] MEDS ORDERED: ALBUTEROL HFA 8 GM INHALER INH PRN (22:56)
[2021-10-21] MEDS ORDERED: GLUCOSE 10 TABS/TUBE PO PRN (02:15)
[2021-10-21] MEDS ORDERED: DEXTROSE 50% 50 ML SYRINGE IV PRN (02:15)
[2021-10-21] MEDS ORDERED: GLUCOSE 40% GEL 15 GM TUBE PO PRN (02:15)
[2021-10-21] MEDS ORDERED: POTASSIUM CHLORIDE CRTAB 20 MEQ TABCR PO STA (02:15)
[2021-10-21] MEDS ORDERED: CARBOHYDRATES FOR HYPOGLYCEMIA PO PRN (02:15)
[2021-10-21] MEDS ORDERED: GLUCAGON FOR INJ 1 MG VIAL SQ PRN (02:15)
[2021-10-21] MEDS ORDERED: FUROSEMIDE 40 MG/4 ML VIAL IV ONE (02:30)
[2021-10-21 06:07] LABS: Basophils # (auto) 0.02 K/uL (0-0.2); Basophils % (auto) 0.2 %; Eosinophils # (auto) 0.15 K/uL (0-0.5); Eosinophils % (auto) 1.9 %; Hematocrit (blood only) 39.4 % (37-47); Hemoglobin 13.4 g/dL (12.0-16.0); Immature Granulocytes # (auto) 0.01 K/uL (0.00-0.02); Immature Granulocytes % (auto) 0.1 %; Lymphocytes # (auto) 1.37 K/uL (1.2-3.4); Mean Corpuscular Hemoglobin 29.1 pg (25-34); Mean Corpuscular Volume 85.5 fL (80-100); Monocytes # (auto) 0.74 K/uL (0.11-0.59); Monocytes % (auto) 9.2 %; Neutrophils # (auto) 5.79 K/uL (1.4-6.5); Neutrophils % (auto) 71.6 %; Platelet Count 191 K/uL (130-400); RDW Coefficient of Variation 13.7 % (11.5-14.5); RDW Standard Deviation 43.1 fL (36.4-46.3); Red Blood Count 4.61 M/uL (4.2-5.4); White Blood Count 8.08 K/uL (4.8-10.8)
[2021-10-21 06:34] LABS: Albumin Globulin Ratio 1.2 (0.9-2); Albumin Level 4.1 gm/dl (3.4-5.0); BUN Creatinine Ratio 24.2 (10-20); Bilirubin,Total 0.7 mg/dl (0.2-1.0); Calcium 9.4 mg/dl (8.5-10.1); Creatinine Clr Calc Pharmacy 60.4 ml/min; Est GFR (African American) 71.5 ml/min; Est GFR (Non-African American) 61.7 ml/min; Globulin 3.3 gm/dl (2.5-4.0); Potassium 3.8 mmol/L (3.5-5.1); Total Protein 7.4 gm/dl (6.0-8.3)
[2021-10-21 06:37] LABS: Troponin I High Sensitivity 59.1 pg/ml (0-14)
[2021-10-21] MEDS ORDERED: ALBUTEROL HFA 8 GM INHALER INH SCH (07:00)
--- NOTE | 2021-10-21 07:03 | XRay Report ---
XR chest 1V portable CLINICAL HISTORY: Congestive heart failure. COMPARISON STUDY: Chest CT December 07, 2018. FINDINGS: Left shoulder arthroplasty, median sternotomy wires and mediastinal surgical clips are note d. Cardiomegaly is present. There is a small left pleural effusion with left basilar opacity. Postope rative findings within the left hemithorax are noted. No radiographic evidence for pulmonary edema. IMPRESSION: 1. Small left pleural effusion with left basilar opacity which could reflect pneumonia or atelectasis . Radiographic follow up is recommended. 2. No radiographic evidence of pulmonary edema. ACT 112: Negative or not required by law. Electronically signed by: Richard Hernandez M.D. 10/21/2021 7:02 AM
[2021-10-21] MEDS: INSULIN ASPART PER UNIT SC SCH ×4 (08:01→20:33)
--- NOTE | 2021-10-21 08:19 | Hospitalist Progress Note ---
Date of Service October 21, 2021 Assessment & Plan (1) CHF exacerbation: Plan: 75 year old female w/ PMHx of diabetes, CAD s/p cabg, HTN, HLD, and aortic valve replacement who presents as a direct admit from [facility] ED for 3-4 days of dyspnea and LE edema most likely from CHF exacerbation. She does have hstroponin elevation, but denies any chest pain. - 07/2019 dobutamine stress echo w/ EF 60% - TTE pending - Continue diuresis - trend hstrop - (2) Diabetes mellitus type II, controlled: Plan: - A1c 6.8 02/2021 - check A1c in AM - home PO regimen held. SSI + basal while inpatient Sugars reasonable (3) CAD (coronary artery disease): Plan: - follows cardiology Dr. Amaya. per records, hx of multivessel CAD. S/P NSTEMI and CABG x2 in 05/2016, S/P bioprosthetic AVR at the time of CABG Elevated troponin; No current angina; repeat troponin and cardiology input; Consider switch to rosuvastatin (4) Hypertension: Plan: - continue home regimen (5) Dyslipidemia: Plan: - continue home regimen; consider rosuvastatin (6) Congestive heart failure: Plan: - see above (7) History of breast cancer: Plan: - w/ hx of lung mets, treated - continue home letrozole if able to obtain home supply (8) GERD (gastroesophageal reflux disease): Plan: - continue home regimen Plan: FEN/GI: DM2, low Na, HH ppx: sq heparin code: full dispo: med tele Admission and Anticipated Discharge Date Admission Date: October 20, 2021 Subjective Follow-up of shortness of breath; feels better Physical Exam Physical Exam: Constitutional and general: No acute distress, looks biologic age Head and face: No puffiness, atraumatic Eyes: No scleral icterus, extraocular movements normal Neck: Supple, no JVD Musculoskeletal: No acute joint swelling, no bony abnormalities Skin/dermatologic/integument: No rash, no purpura Hematologic and lymphatic: pallor none, no petechia Gastrointestinal/abdomen: Nondistended, soft, nonacute Neurologic: Cranial nerves intact, nonfocal Psychiatry: Awake, alert, pleasant, communicative Cardiovascular: Heart rhythm regular, no rub, no murmur, no gallop Respiratory: Chest movements equal, no use of accessory muscles, no adventitious sounds Extremities: edema +, no cyanosis Results & Data Results & Data ([facility]) Vital Signs (Past 12 Hours) Vital Signs Temp Pulse Pulse Resp BP Pulse Ox 10/21/21 07:23 36.4 C L 75 17 132/80 96 10/21/21 07:00 76 10/21/21 03:44 36.5 C 80 16 120/73 99 10/21/21 00:20 36.7 C 81 16 116/70 96 Laboratory Results Laboratory Results - last 24 hr 10/20/21 10/21/21 10/21/21 20:45 05:50 05:50 WBC 8.08 RBC 4.61 Hgb 13.4 Hct 39.4 MCV 85.5 MCH 29.1 MCHC 34.0 RDW Std Deviation 43.1 RDW Coeff of [place] 13.7 Plt Count 191 MPV 9.0 Immature Gran % (Auto) 0.1 Neut % (Auto) 71.6 Lymph % (Auto) 17.0 [place] % (Auto) 9.2 Eos % (Auto) 1.9 Baso % (Auto) 0.2 Neut # (Auto) 5.79 Lymph # (Auto) 1.37 [place] # (Auto) 0.74 H Eos # (Auto) 0.15 Baso # (Auto) 0.02 Immature Gran # (Auto) 0.01 Sodium 140 Potassium 3.8 Chloride 103 Carbon Dioxide 26 Anion Gap 11 BUN 22 Creatinine 0.91 Est Cr Clr Drug Dosing 60.4 Est GFR ( Amer) 71.5 Est GFR (Non-Af Amer) 61.7 BUN/Creatinine Ratio 24.2 H Glucose 165 H POC Glucose Estimat Average Glucose Hemoglobin A1c Calcium 9.4 Total Bilirubin 0.7 AST 10 L ALT 5 L Alkaline Phosphatase 52 Troponin I High Sens 59.1 H* Total Protein 7.4 Albumin 4.1 Globulin 3.3 Albumin/Globulin Ratio 1.2 SARS-CoV-2, RNA, NAAT NEGATIVE 10/21/21 10/21/21 05:50 07:23 WBC RBC Hgb Hct MCV MCH MCHC RDW Std Deviation RDW Coeff of [place] Plt Count MPV Immature Gran % (Auto) Neut % (Auto) Lymph % (Auto) [place] % (Auto) Eos % (Auto) Baso % (Auto) Neut # (Auto) Lymph # (Auto) [place] # (Auto) Eos # (Auto) Baso # (Auto) Immature Gran # (Auto) Sodium Potassium Chloride Carbon Dioxide Anion Gap BUN Creatinine Est Cr Clr Drug Dosing Est GFR ( Amer) Est GFR (Non-Af Amer) BUN/Creatinine Ratio Glucose POC Glucose 174 H Estimat Average Glucose Pending Hemoglobin A1c Pending Calcium Total Bilirubin AST ALT Alkaline Phosphatase Troponin I High Sens Total Protein Albumin Globulin Albumin/Globulin Ratio SARS-CoV-2, RNA, NAAT PG Care Time/CCT Total # of Minutes Spent Total Time Spent with Patient: Total time spent is greater than 50% in coordination of care (as documented) at patient's floor/unit and/or counseling patient: Coding Level of Care Code 99797 Subseq Hosp Care Lvl 2 Diagnoses CHF exacerbation I50.9 Diabetes mellitus type II, controlled E11.9 CAD (coronary artery disease) I25.10 Hypertension I10 Dyslipidemia E78.5 Congestive heart failure I50.9 History of breast cancer Z85.3 GERD (gastroesophageal reflux disease) K21.9
[2021-10-21] MEDS: ASPIRIN 81 MG ECTAB PO SCH (09:09)
[2021-10-21] MEDS: FAMOTIDINE 40 MG TABLET PO SCH (09:10)
[2021-10-21] MEDS: UMECLIDINIUM BROMIDE 62.5MCG/BLISTER 7 PUFFS/INHALER INH SCH (09:10)
[2021-10-21] MEDS: LETROZOLE 2.5 MG TAB PO SCH (09:10)
[2021-10-21] MEDS: HEPARIN SOD 5,000 UNIT/0.5 ML VIAL SQ SCH ×2 (09:10→21:01)
[2021-10-21] MEDS: MONTELUKAST SODIUM 10 MG TABLET PO SCH (09:10)
[2021-10-21] MEDS: FLUTICASONE/VILANTEROL 100/25MCG 14 PUFFS/INHALER INH SCH (09:10)
[2021-10-21] MEDS: carvediloL 12.5 MG TAB PO SCH ×2 (09:10→21:02)
[2021-10-21] MEDS: LANTUS PER UNIT CHARGE SQ SCH ×2 (09:20→20:32)
[2021-10-21 09:28] LABS: Estimated Average Glucose 143 mg/dl; Hemoglobin A1C 6.6 % (4.5-5.6)
--- NOTE | 2021-10-21 16:20 | Cardiology Consultation ---
Date of Consultation October 21, 2021 Assessment & Plan (1) Acute on chronic heart failure with preserved ejection fraction (HFpEF): (2) Elevated troponin: (3) CAD (coronary artery disease): (4) History of coronary artery bypass graft: (5) History of aortic valve replacement: (6) Mitral regurgitation: (7) Hypertension: ASSESSMENT/PLAN: 1. Acute on chronic HFpEF: She does not appear significantly hypervolemic at this time and breathing is back to baseline. Presented with class 3 symptoms and now class 1/2, but difficult to know given lack of exertion while here. Given that exacerbation likely due to medication noncompliance, would consider Lasix 20 mg on a daily basis at home rather than 40 mg every other day. Recommended heart failure program. She was hesitant due to the distance of driving but agreeable for phone call check ins. Recommend daily weight. Low- sodium diet, less than 2000 mg daily. Strict I&Os while hospitalized, which was discussed with her. Could consider more aggressive heart failure medications but given noncompliance driving this, a simplified regimen may make more sense. 2. Elevated troponin: Troponin is flat. She did not present with acute coronary syndrome. Elevated troponin likely due to CHF. Ischemic evaluation not necessary at this time. 3. CAD s/p CABG: No angina. Continue aspirin 81 mg daily. Continue beta- catarino and high-intensity statin therapy. 4. Aortic valve replacement: Appropriately functioning on preliminary echo review. SBE prophylaxis for dental procedures. Continue aspirin. 5. Mitral regurgitation: Non severe. Can be monitored as an outpatient by her primary barmaid. 6. Hypertension: Blood pressure well controlled. Was initially hypertensive but otherwise normotensive. No changes made at this time. 7. Disposition: Can be discharged home from a Cardiology perspective. Follow- up with Dr. Amaya, her primary barmaid. Heart failure program referral for Leyla Sepulveda, especially to help in the post discharge transition. Patient care communicated with primary hospitalist, Dr. Clemens. Today's visit was 45 minutes in duration, including lpat-ki-tooe time, reviewing of records, counseling patient, coordinating care, and chart completion. Thank you for allowing me to participate in the care of your patient. Please call for any other questions or concerns. Sincerely, Tavares Chris M.D. History of Present Illness Reason for Consultation: CHF exacerbation, positive troponin, known to card" Requesting Physician: Lula Clemens MD Attending Physician: Lula Clemens MD History of Present Illness Ms. Ramirez is a pleasant 75-year-old female with a history significant for CAD s/p CABG x 2 and bioprosthetic AVR (May 2016), hypertension, dyslipidemia, HFpEF, type 2 diabetes, and breast cancer (mastectomy, chemotherapy, stem cell transplant, radiation). Her primary barmaid is Dr. Amaya. She was admitted on 10/20/2021 for concerns of CHF exacerbation. She was transferred from [facility] emergency department for direct admission. She typically takes Lasix 40 mg every other day but she admits that she has missed 4 or 5 doses recently, by simply forgetting to take the medication. She states that she maintains a low-sodium diet when questioned, but according to the admission note, she enjoys chipped ham, restaurant food, hot dogs, sauerkraut. When specifically asked about these foods, she stated that she avoids sodium. She has been short of breath for the past few weeks but dyspnea with exertion significantly worsened over the past week. She noted increased lower extremity swelling. While here, she has received Lasix 40 mg IV x1 and states that she has had significant urine output increase, but she has not been keeping her urine for measurement of I&Os. She feels back to baseline. She denies shortness of breath at this time or orthopnea and was laying flat in bed when I entered the room. She denies chest pain, syncope, near-syncope, palpitations, melena, hematochezia, hematuria, or other bleeding. Review of systems: As above. Review of systems otherwise negative/unremarkable. Family history: Father had CAD. Brother with CAD. Social history: She denies smoking, alcohol, or drug abuse. She has not been . No children. She lives alone. She was alone in her hospital room. Allergies Allergy/AdvReac Type Severity Reaction Status Date / Time bee venom protein (honey bee) Allergy Severe ANAPHYLAXIS Verified 09/26/21 09:39 Home Medications Medication Instructions Recorded Confirmed Type aspirin 81 mg tablet,delayed 81 mg PO DAILY #30 tab 12/31/18 10/20/21 Rx release famotidine 40 mg tablet 40 mg PO DAILY tab 12/31/18 10/20/21 History letrozole 2.5 mg tablet 2.5 mg PO DAILY 01/03/19 10/20/21 History cholecalciferol (vitamin D3) 50 2,000 units PO DAILY cap 11/28/19 10/20/21 History mcg (2,000 unit) capsule potassium chloride 20 mEq 20 meq PO PRN #30 tab 07/01/21 10/20/21 Rx tablet,extended release atorvastatin 80 mg tablet 80 mg PO HS #90 tab 07/09/21 10/20/21 Rx glimepiride 2 mg tablet 2 mg PO QAM #90 tab 07/30/21 10/20/21 Rx metformin 1,000 mg tablet 1,000 mg PO BID #180 tab 08/20/21 10/20/21 Rx alendronate 35 mg tablet 35 mg PO WK 09/26/21 10/20/21 History montelukast 10 mg tablet 10 mg PO DAILY #90 tab 09/26/21 10/20/21 Rx (Singulair) furosemide 40 mg tablet 40 mg PO DAILY PRN #90 tab 10/01/21 10/20/21 Rx carvedilol 6.25 mg tablet 12.5 mg PO BID #360 tab 10/16/21 10/20/21 Rx albuterol sulfate 90 mcg/actuation 1 inh INHALATION QID PRN 10/20/21 10/20/21 History aerosol inhaler budesonide-formoterol HFA 80 2 puff INHALATION BID PRN 10/20/21 10/20/21 History mcg-4.5 mcg/actuation aerosol inhaler (Symbicort) fluticasone propionate 50 1 spray INTRANASAL DAILY PRN 10/20/21 10/20/21 History mcg/actuation nasal spray,suspension (Flonase Allergy Relief) tiotropium bromide 1.25 2 puff INHALATION DAILY 10/20/21 History mcg/actuation mist for inhalation (Spiriva Respimat) Patient History Medical History Breast cancer CAD (coronary artery disease) Congestive heart failure Diabetes mellitus type II, controlled Dyslipidemia Fatigue Gastroesophageal reflux disease Hypertension NSTEMI (non-ST elevated myocardial infarction) Surgical History History of aortic valve replacement History of back surgery History of cataract surgery History of coronary artery bypass graft History of right mastectomy Family History (Updated 10/20/21 @ 20:21 by Jarocho Pollard MD) Mother Breast cancer Father Myocardial infarction in his 40s Denies family history of Colon cancer Ovarian cancer Prostate cancer Social History Smoking Status: Never smoker Number of Years Since Quit: 40; Second Hand Exposure: No; Hx Alcohol Use: Yes Hx Substance Use: No Preferred Language: Sinhala Communication Ability: Effective Visual Impairment: No Limitations Hearing Ability: Normal Scheduling Representative Required: No Beliefs That Will Affect Care: None marital status: Single Current Living Situation: Alone current occupational status: retired Other Information That Helps Us Care for You: No Feels Safe at Home: Yes Safety Concerns: Feels Safe At This Time Childhood Exposure to Second-Hand Smoke: No caffeine: Yes (1 cup of coffee daily) Dental Care, Regularly: Yes Physical Activity Frequency: 1-2 Times per Week Seatbelt Use: always Sunscreen Use: No Assistive Devices: Glasses Physical Exam Physical Exam: Gen.: No acute distress. Alert and oriented. HEENT: Anicteric sclera. Neck: Thick neck. No appreciable JVD. No bruits. Normal carotid upstrokes bilaterally. Cardiac: PMI was nonpalpable. No ventricular heave. Regular. Normal S1-S2. 1/6 systolic ejection murmur best heard at the right upper sternal border. Pulmonary: Clear to auscultation bilaterally without wheezes, rales, or rhonchi. Abdomen: Soft, nontender, nondistended, with normoactive bowel sounds. No bruits noted. Extremities: 2+ radial pulses bilaterally. 2+ posterior tibialis pulses bilaterally. Trace bilateral lower extremity edema. No cyanosis. Psychiatric: Affect appears appropriate. Results & Data ([facility]) Vital Signs (Past 12 Hours) Vital Signs Temp Pulse Pulse Resp BP Pulse Ox 10/21/21 16:09 37.0 C 75 18 117/72 95 10/21/21 14:50 74 10/21/21 11:41 36.5 C 76 18 113/71 95 10/21/21 07:23 36.4 C L 75 17 132/80 96 10/21/21 07:00 76 Laboratory Results Laboratory Results - last 24 hr 07/07/0910/21/21 10/21/21 20:45 05:50 05:50 WBC 8.08 RBC 4.61 Hgb 13.4 Hct 39.4 MCV 85.5 MCH 29.1 MCHC 34.0 RDW Std Deviation 43.1 RDW Coeff of [place] 13.7 Plt Count 191 MPV 9.0 Immature Gran % (Auto) 0.1 Neut % (Auto) 71.6 Lymph % (Auto) 17.0 [place] % (Auto) 9.2 Eos % (Auto) 1.9 Baso % (Auto) 0.2 Neut # (Auto) 5.79 Lymph # (Auto) 1.37 [place] # (Auto) 0.74 H Eos # (Auto) 0.15 Baso # (Auto) 0.02 Immature Gran # (Auto) 0.01 Sodium 140 Potassium 3.8 Chloride 103 Carbon Dioxide 26 Anion Gap 11 BUN 22 Creatinine 0.91 Est Cr Clr Drug Dosing 60.4 Est GFR ( Amer) 71.5 Est GFR (Non-Af Amer) 61.7 BUN/Creatinine Ratio 24.2 H Glucose 165 H POC Glucose Estimat Average Glucose Hemoglobin A1c Calcium 9.4 Total Bilirubin 0.7 AST 10 L ALT 5 L Alkaline Phosphatase 52 Troponin I High Sens 59.1 H* B-Natriuretic Peptide Total Protein 7.4 Albumin 4.1 Globulin 3.3 Albumin/Globulin Ratio 1.2 SARS-CoV-2, RNA, NAAT NEGATIVE 10/21/21 10/21/21 10/21/21 05:50 07:23 09:18 WBC RBC Hgb Hct MCV MCH MCHC RDW Std Deviation RDW Coeff of [place] Plt Count MPV Immature Gran % (Auto) Neut % (Auto) Lymph % (Auto) [place] % (Auto) Eos % (Auto) Baso % (Auto) Neut # (Auto) Lymph # (Auto) [place] # (Auto) Eos # (Auto) Baso # (Auto) Immature Gran # (Auto) Sodium Potassium Chloride Carbon Dioxide Anion Gap BUN Creatinine Est Cr Clr Drug Dosing Est GFR ( Amer) Est GFR (Non-Af Amer) BUN/Creatinine Ratio Glucose POC Glucose 174 H Estimat Average Glucose 143 Hemoglobin A1c 6.6 H Calcium Total Bilirubin AST ALT Alkaline Phosphatase Troponin I High Sens B-Natriuretic Peptide 881 H Total Protein Albumin Globulin Albumin/Globulin Ratio SARS-CoV-2, RNA, NAAT 10/21/21 10/21/21 10/21/21 11:23 11:42 16:32 WBC RBC Hgb Hct MCV MCH MCHC RDW Std Deviation RDW Coeff of [place] Plt Count MPV Immature Gran % (Auto) Neut % (Auto) Lymph % (Auto) [place] % (Auto) Eos % (Auto) Baso % (Auto) Neut # (Auto) Lymph # (Auto) [place] # (Auto) Eos # (Auto) Baso # (Auto) Immature Gran # (Auto) Sodium Potassium Chloride Carbon Dioxide Anion Gap BUN Creatinine Est Cr Clr Drug Dosing Est GFR ( Amer) Est GFR (Non-Af Amer) BUN/Creatinine Ratio Glucose POC Glucose 186 H 132 H Estimat Average Glucose Hemoglobin A1c Calcium Total Bilirubin AST ALT Alkaline Phosphatase Troponin I High Sens 58.8 H* B-Natriuretic Peptide Total Protein Albumin Globulin Albumin/Globulin Ratio SARS-CoV-2, RNA, NAAT Diagnostic Findings Telemetry personally reviewed: Sinus rhythm. No arrhythmia. ECG personally reviewed 10/21/2021 at 5:26 a.m.: Sinus rhythm 76 beats per minute. Preliminary review of echo from 10/21/2021 demonstrated normal LV systolic function. Appropriately functioning bioprosthetic aortic valve. Non severe mitral regurgitation. Formal review to follow. Chest x-ray 10/21/2021: Small left pleural effusion and left basilar opacity per Radiology. No evidence of pulmonary edema per Radiology. Medications Administered Current Inpatient Medications Albuterol (Albuterol Hfa 8 Gm Inhaler) 1 puffs INH QID PRN PRN Reason: sob/wheezing Stop: 11/19/21 22:55 Aspirin (Aspirin 81 Mg Ectab) 81 mg PO DAILY MERCEDES Stop: 11/20/21 08:59 Last Admin: 10/21/21 09:09 Dose: 81 mg Documented by: Atorvastatin Calcium (Atorvastatin 40 Mg Tab) 80 mg PO HS MERCEDES Stop: 11/20/21 20:59 Carvedilol (Carvedilol 12.5 Mg Tab) 12.5 mg PO BID MERCEDES Stop: 11/20/21 08:59 Last Admin: 10/21/21 09:10 Dose: 12.5 mg Documented by: Dextrose (Dextrose 50% 50 Ml Syringe) 25 - 50 ml IV UD PRN; Protocol PRN Reason: Hypoglycemia Protocol Stop: 11/20/21 02:14 Famotidine (Famotidine 40 Mg Tablet) 40 mg PO DAILY [facility]CEDES Stop: 11/20/21 08:59 Last Admin: 10/21/21 09:10 Dose: 40 mg Documented by: Fluticasone/Vilanterol (Fluticasone/Vilanterol 100/25mcg 14 Puffs/Inhaler) 1 puffs INH DAILY [facility]CEDES Stop: 11/20/21 08:59 Last Admin: 10/21/21 09:10 Dose: 1 puffs Documented by: Furosemide (Furosemide 40 Mg/4 Ml Vial) 40 mg IV DAILY [facility]ES Stop: 11/21/21 08:59 Glucagon (Glucagon For Inj 1 Mg Vial) 1 mg SQ UD PRN; Protocol PRN Reason: Hypoglycemia Protocol Stop: 11/20/21 02:14 Glucose (Glucose 10 Tabs/Tube) 4 - 8 tabs PO UD PRN; Protocol PRN Reason: Hypoglycemia Protocol Stop: 11/20/21 02:14 Glucose (Glucose 40% Gel 15 Gm Tube) 15 - 30 gm PO UD PRN; Protocol PRN Reason: Hypoglycemia Protocol Stop: 11/20/21 02:14 Heparin Sodium (Porcine) (Heparin Sod 5,000 Unit/0.5 Ml Vial) 5,000 units SQ Q12 [facility]CEDES Stop: 11/20/21 08:59 Last Admin: 10/21/21 09:10 Dose: 5,000 units Documented by: Insulin Aspart (Insulin Aspart Per Unit) 0 units SC ACHS [facility]ES Stop: 11/20/21 07:29 Last Admin: 10/21/21 12:03 Dose: 4 units Documented by: Insulin Glargine (Lantus Per Unit Charge) 6 units SQ BID [facility] Stop: 11/20/21 08:59 Last Admin: 10/21/21 09:20 Dose: 6 units Documented by: Letrozole (Letrozole 2.5 Mg Tab) 2.5 mg PO DAILY [facility] Stop: 11/20/21 08:59 Last Admin: 10/21/21 09:10 Dose: 2.5 mg Documented by: Miscellaneous (Carbohydrates For Hypoglycemia ) 15 - 30 gm PO UD PRN PRN Reason: Hypoglycemia Protocol Stop: 11/20/21 02:14 Montelukast Sodium (Montelukast Sodium 10 Mg Tablet) 10 mg PO DAILY [facility]CEDES Stop: 11/20/21 08:59 Last Admin: 10/21/21 09:10 Dose: 10 mg Documented by: Potassium Chloride (Potassium Chloride Crtab 20 Meq Tabcr) 20 meq PO QAM [facility]CEDES Stop: 11/21/21 08:59 Umeclidinium Mosca (Umeclidinium [place] 62.5mcg/Blister 7 Puffs/Inhaler) 1 puffs INH DAILY [facility]ES Stop: 11/20/21 08:59 Last Admin: 10/21/21 09:10 Dose: 1 puffs Documented by: PG Care Time/CCT Total # of Minutes Spent Total Time Spent with Patient: Total time spent is greater than 50% in coordination of care (as documented) at patient's floor/unit and/or counseling patient: Coding Level of Care Code 18262 Office/Outpt Visit, Est Diagnoses Acute on chronic heart failure with preserved ejection fraction (HFpEF) I50.33 Elevated troponin R77.8 CAD (coronary artery disease) I25.10 History of coronary artery bypass graft Z95.1 History of aortic valve replacement Z95.2 Mitral regurgitation I34.0 Hypertension I10 Time Spent (min) 45
[2021-10-21] MEDS ORDERED: ATORVASTATIN 40 MG TAB PO SCH (21:00)
--- NOTE | 2021-10-22 08:19 | XCELERA ---
[id number]
[2021-10-22 08:27] LABS: BUN Creatinine Ratio 25.7 (10-20); Calcium 9.6 mg/dl (8.5-10.1); Creatinine Clr Calc Pharmacy 48.7 ml/min; Est GFR (African American) 55.1 ml/min; Est GFR (Non-African American) 47.5 ml/min; Magnesium 1.9 mg/dl (1.7-2.4); Potassium 3.9 mmol/L (3.5-5.1)
[2021-10-22] MEDS: LANTUS PER UNIT CHARGE SQ SCH (08:28)
[2021-10-22] MEDS: INSULIN ASPART PER UNIT SC SCH ×2 (08:28→12:33)
[2021-10-22] MEDS: UMECLIDINIUM BROMIDE 62.5MCG/BLISTER 7 PUFFS/INHALER INH SCH (08:29)
[2021-10-22] MEDS: FLUTICASONE/VILANTEROL 100/25MCG 14 PUFFS/INHALER INH SCH (08:30)
[2021-10-22] MEDS: carvediloL 12.5 MG TAB PO SCH (08:30)
[2021-10-22] MEDS: MONTELUKAST SODIUM 10 MG TABLET PO SCH (08:31)
[2021-10-22] MEDS: FAMOTIDINE 40 MG TABLET PO SCH (08:31)
[2021-10-22] MEDS: LETROZOLE 2.5 MG TAB PO SCH (08:31)
[2021-10-22] MEDS: HEPARIN SOD 5,000 UNIT/0.5 ML VIAL SQ SCH (08:33)
[2021-10-22] MEDS: ASPIRIN 81 MG ECTAB PO SCH (08:33)
[2021-10-22] MEDS ORDERED: POTASSIUM CHLORIDE CRTAB 20 MEQ TABCR PO SCH (09:00)
[2021-10-22] MEDS ORDERED: FUROSEMIDE 40 MG/4 ML VIAL IV SCH (09:00)
[2021-10-22] MEDS ORDERED: FUROSEMIDE 20 MG TAB PO SCH (09:00)
--- NOTE | 2021-10-22 13:04 | Discharge Summary ---
Date of Service October 22, 2021 Admission HPI Per Admitting Provider 75 year old female w/ PMHx of diabetes, CAD s/p cabg, HTN, HLD, and aortic valve replacement who presents w/ 3-4 days of dyspnea on exertion. She states she takes Lasix 40mg PO every other day usually and has missed a few doses this week. She endorses some orthopnea as well this and went to [place] for her dyspnea. Denies any chest pain. She took baby asa and nitro because she felt similar during her previous [place] and notes the nitro provided some relief. She states she is compliant w/ other meds. Legs feel achy and heavy. Chronic mild neuropathy. Denies change in diet habits. States that she eats salt, but not e xcessively. Breakfast: toast or egg. Lunch: chipped ham sandwich. Fruit cups. Dinner: eats out. home: hamburger, hot dogs, sour kraut. Cough earlier in day felt a little wet, now feels dry. She states feels almost back to baseline. Received Lasix and heparin drip at [facility]. She was direct admit from [facility] because of concern for NSTEMI and need for possible cardiology intervention. Outside records: ecg x3. mod ivcd. rightward leading axis. nsr cbc normal. wbc 9. hb 13. slight neutrophil predom. cmp: normal electrolytes. Cr 1.1. glucose 192. BNP 682 (ref 0-100) [facility] ed course: lasix iv 40. heparin drip. vss. o2 sat 94. hr 86. rr 17. took nitro w/ improvement. states felt like prior TN. cxr: moderate congestive heart failure. interpreted by ed provider. hstrop: normal->55->100 Principal Diagnosis Acute on chronic diastolic heart failure Discharge Exam Constitutional and general: No acute distress, looks biologic age Head and face: No puffiness, atraumatic Eyes: No scleral icterus, extraocular movements normal Neck: Supple, no JVD Musculoskeletal: No acute joint swelling, no bony abnormalities Skin/dermatologic/integument: No rash, no purpura Hematologic and lymphatic: pallor none, no petechia Gastrointestinal/abdomen: Nondistended, soft, nonacute Neurologic: Cranial nerves intact, nonfocal Psychiatry: Awake, alert, pleasant, communicative Cardiovascular: Heart rhythm regular, no rub, SSM, no gallop Respiratory: Chest movements equal, no use of accessory muscles, no adventitious sounds Extremities: edema nearly resolved, no cyanosis Discharge Data Allergies Allergy/AdvReac Type Severity Reaction Status Date / Time bee venom protein (honey bee) Allergy Severe ANAPHYLAXIS Verified 09/26/21 09:39 Consultations 10/21/21 07:59 Consult Cardiology Routine 10/21/21 16:16 [facility] CHF Program Referral Routine Hospital Course (1) Acute on chronic heart failure with preserved ejection fraction (HFpEF): Improved, seen by cardiology; Lasix 20 mg daily and outpatient follow-up (2) Diabetes mellitus type II, controlled: -No change to home regimen, follow-up with PCP (3) CAD (coronary artery disease): - follows cardiology Dr. Amaya. per records, hx of multivessel CAD. S/P NSTEMI and CABG x2 in 05/2016, S/P bioprosthetic AVR at the time of CABG Type II event with elevated troponin, outpatient cardiology; at present did not change statin but can consider (4) Hypertension: - continue current regimen, carvedilol dose higher, 12.5 twice a day (5) Dyslipidemia: - continue home regimen; consider rosuvastatin (6) History of breast cancer: - w/ hx of lung mets, treated - continue home letrozole (7) GERD (gastroesophageal reflux disease): - continue home regimen Seen by Occupational Therapy, cleared for discharge to home; PT evaluation pending, she did not want to wait; discussed with case managementno home needs Total Time Total Time Spent Total Time Spent (In Minutes): 35 Discharge Plan Discharge Items Patient Disposition: Home - Self-Care Reason For Visit: CHF EXACERBATION Discharge Diagnosis: Acute on chronic diastolic heart for Activity: As commented below Activity Comment: As tolerated Non-emergency contact: Primary Care Provider Call non-emergency contact if: your symptoms worsen Follow-up/Referrals: Hannah Valerio CRNP [Primary Care Provider] - Rg Amaya Jr, MD, FACC [Physician] - (Posthospitalization follow-up1 to 2-weeks) Leyla Sepulveda PA-C [Physician Assurance Specialist] - 10/28/21 11:00 am (THIS IS A VIRTUAL APPOINTMENT) Diet: Carb Consistent or DM2, Heart Healthy and Low Sodium (2gm) Addtl Attending Provider Instructions: Follow-up with your primary care provider in 5 to 7 days Addtl Administrative Intern Provider Instructions: Call your Primary Care doctor if any of the following symptoms or problems start or get worse: * Shortness of breath or difficulty breathing * Wake up at night short of breath * Chest pain * Cough * Swelling of your hands, feet, or legs * More fatigued or tired with your normal activity * Palpitations - sudden fast heart beats WEIGHT * Weigh yourself every morning after using the bathroom. * Use the same scale. * Wear the same amount of clothing. * Write your weight down on a chart. * Call your Primary Care doctor if you gain more than 2-3 pounds in 1-2 days. MEDICATIONS * Use this discharge instruction sheet for medication instructions. * Take your medications at the time your doctor ordered. * Do not skip a dose of your medicines. * If you miss a dose of medicine, take it as soon as possible, but DO NOT DOUBLE A DOSE. * Read your medicine information when you get home. * Know all of the side effects of your medicine. If in doubt, ask your pharmacist * Call your Primary Care doctor's office if you have any side effects. * Be sure all of your doctors know what medicine and herbs you take (including cold, flu, and herbal medicine). Take the following with you to your follow-up doctor appointments: * Weight Chart * Medication List * List of questions Do not drink excessive alcohol, beer or wine. Pending Studies at Discharge: No Stand-Alone Forms: [facility] [employer], Smoking Cessation Medications and DC Order Prescriptions: New carvedilol 12.5 mg Tablet 12.5 mg PO BID Qty: 60 RF: 0 furosemide 20 mg Tablet 20 mg PO QAM Qty: 30 RF: 0 Continued famotidine 40 mg tablet 40 mg PO DAILY RF: 0 aspirin 81 mg tablet,delayed release (DR/EC) 81 mg PO DAILY Qty: 30 RF: 2 potassium chloride 20 mEq tablet extended release 20 meq PO PRN Qty: 30 RF: 11 glimepiride 2 mg tablet 2 mg PO QAM Qty: 90 RF: 1 metformin 1,000 mg tablet 1,000 mg PO BID Qty: 180 RF: 1 letrozole 2.5 mg tablet 2.5 mg PO DAILY RF: 0 cholecalciferol (vitamin D3) 50 mcg (2,000 unit) capsule 2,000 units PO DAILY RF: 0 alendronate 35 mg tablet 35 mg PO WK RF: 0 montelukast [Singulair] 10 mg tablet 10 mg PO DAILY Qty: 90 RF: 1 atorvastatin 80 mg tablet 80 mg PO HS Qty: 90 RF: 3 albuterol sulfate 90 mcg/actuation HFA aerosol inhaler 1 inh inhalation QID PRN (Reason: Shortness Of Breath) RF: 0 fluticasone propionate [Flonase Allergy Relief] 50 mcg/actuation spray,suspension 1 spray intranasal DAILY PRN (Reason: Allergy Symptoms) RF: 0 budesonide-formoterol [Symbicort] 80-4.5 mcg/actuation HFA aerosol inhaler 2 puff inhalation BID PRN (Reason: Allergic Symptoms) RF: 0 Spiriva Respimat 1.25 mcg/actuation mist 2 puff inhalation DAILY RF: 0 Discontinued furosemide 40 mg tablet 40 mg PO DAILY PRN (Reason: weight gain and shortness of breath) Qty: 90 RF: 3 carvedilol 6.25 mg tablet 12.5 mg PO BID Qty: 360 RF: 3 Discharge Orders: Discharge Order (Routine); Ordered 10/22/21 Ordered By: Lula Hua/Other Patient Handouts: Managing Type 2 Diabetes Admission Data Admit Date/Time: 10/20/21 22:26 Attending Provider: Lula Clemens Admit Provider: Jarocho Pollard Primary Care Provider: Hannah Valerio Other Providers: David Chris ; Leyla Sepulveda Coding Level of Care Code D/C DAY MANAGEMENT >30 MINS Diagnoses Diabetes mellitus type II, controlled E11.9 CAD (coronary artery disease) I25.10 Hypertension I10 Dyslipidemia E78.5 History of breast cancer Z85.3 GERD (gastroesophageal reflux disease) K21.9 Acute on chronic heart failure with preserved ejection fraction (HFpEF) I50.33
--- NOTE | 2021-10-22 20:59 | Electrocardiogram Report ---
Test Reason : Blood Pressure : / mmHG Vent. Rate : 076 BPM Atrial Rate : 076 BPM P-R Int : 178 ms QRS Dur : 104 ms QT Int : 458 ms P-R-T Axes : 044 054 073 degrees QTc Int : 515 ms Normal sinus rhythm Prolonged QT Abnormal ECG When compared with ECG of 11-JUN-2016 10:26, T wave inversion no longer evident in Anterior leads Confirmed by David Chris ([id number]) on 10/22/2021 8:59:34 PM Referred By: Sunil Matos Confirmed By:David Chris
== END 2021-10-22 15:20 | disposition home or self-care (01) ==
LOC: SUATTDRO 19:43 → 2S 19:43 → INTOOBSV 22:26 → 2N 10-21 18:08

== ENCOUNTER 2022-10-23 17:30 | Inpatient (IN) ==
--- NOTE | 2022-10-23 17:39 | ED Triage Note ---
Date of Service October 23, 2022 History of Present Illness This patient was briefly evaluated while in triage. An abbreviated physical exam was performed. This patient is a 76-year-old Female who presents to the ED for evaluation of shortness of breath. The patient was seen at her PCPs office, with a chest x- ray showing that her lung is full of fluid. Patient does have a history of breast cancer. . Patient does have a history of aortic valve replacement. Patient denies any chest pain. Physical Exam CONSTITUTIONAL: Healthy and well nourished. Alert and oriented X 3. Patient does not appear in any acute distress. HEENT: Normocephalic, atraumatic. Pupils equal, round and reactive. RESPIRATORY: Patient has decreased breath sounds on the left without crackles, rhonchi or stridor. CARDIOVASCULAR: Regular rate and rhythm. INTEGUMENTARY: No rash or other significant dermatologic conditions noted. HEMATOLOGIC: No ecchymosis or petechiae. PSYCHIATRIC: Positive affect. NEUROLOGIC: No focal neurologic deficits noted. Initial orders for labs and / or imaging were placed and patient was placed in the waiting area until a bed is available. Please see further documentation for the full ED course.
[2022-10-23] MEDS ORDERED: SODIUM CHLORIDE 0.9% 500 ML IV ONE (18:01)
--- NOTE | 2022-10-23 19:00 | Emergency Department Note ---
Impression & Plan SOB (shortness of breath), Weakness, Collapsed lung, Elevated troponin, Hypomagnesemia ED Provider Note NAME: TARUN TOMPKINS AGE: 76 SEX: F : 1945 ARRIVES VIA: Walk-In INFORMANT: [Patient] ED PROVIDER(S): [Trent Benavides MD] CHIEF COMPLAINT: Abnormal testing HISTORY OF PRESENT ILLNESS: The patient is a 76-year-old female with a history of metastatic breast cancer. In April, 6 months ago, she was told that she had some slight fluid on the left lung. Lately, she has been a bit more short of breath and fatigued. She has had a bit more of a cough. No fever. She denies shortness of breath sitting still, the shortness of breath is more so exertional. Patient saw her doctor's office today, she was found to have a white out of the left lung. No breath sounds on the left. She was referred to the ER. Patient denies urinary complaints, no diarrhea. She has no chest pain. PMHx/PSHx: See Below SOCIAL HISTORY: See Below. PHYSICAL EXAM: GENERAL: Patient is in no acute distress. HEENT: No acute trauma, normocephalic atraumatic, mucous membranes moist, no nasal congestion. NECK: No stridor, no adenopathy, no meningismus, trachea is midline. LUNGS: No breath sounds on the left, the right lung is clear, no respiratory distress HEART: Without murmurs gallops or rubs, regular rate and rhythm. ABDOMEN: Soft, nontender, bowel sounds positive, no peritonitis. EXTREMITIES: No cyanosis, moderate bilateral pedal edema, full range of motion of all the joints without pain or difficulty, no signs for acute trauma. NEUROLOGIC: Oriented x 3, no acute motor or sensory deficits, no focal weakness. SKIN: No rash, no jaundice, no diaphoresis. DIFFERENTIAL DIAGNOSIS: Hemothorax, pleural effusion, malignancy, pneumonia, PE, anemia, IN, among others. EMERGENCY DEPARTMENT COURSE/PROCEDURES: Prior/Outside records reviewed: None. ECG per my interpretation: Indication was shortness of breath. The ECG shows a normal sinus rhythm with a rate of 74. There is some nonspecific ST change. There is no ST elevation, no PVCs but the QTc is 481. Continuous Cardiac Monitoring per my interpretation: An order was placed for continuous cardiac monitoring. The monitor shows a rate of 79 with normal sinus rhythm. MEDICAL DECISION MAKING: There is no leukocytosis or concerning anemia. There is a normal platelet count. No coagulopathy. Creatinine is mildly elevated, the patient has a history of mild renal insufficiency. Magnesium was quite low at 1.3. Lactic acid level was slightly elevated consistent with potential infection. No concerning liver enzyme elevation. ECG shows a normal sinus rhythm, no ST elevation to suggest IN. Cardiac enzyme testing x1 is slightly elevated. This troponin elevation could be secondary to mismatch or potentially cardiac injury. COVID test returned negative. Chest CT shows findings of left lung collapse se condary to bronchial obstruction. No PE. A left pleural effusion was seen. On exam, the patient had no breath sounds on the left. She was not hypoxic, she was not febrile. Patient received a 500 cc saline bolus, she was given IV Zosyn as antibiotic coverage. She was given IV magnesium. I talked the patient about her findings, I did speak with case management, hospitalization is indicated. The on-call hospitalist was consulted. DISPOSITION: Patient's presentation and findings warrant a hospital stay. Past Med/Surg History Medical History Breast cancer CAD (coronary artery disease) Diabetes mellitus type II, controlled Dyslipidemia Elevated troponin Fatigue Gastroesophageal reflux disease Hypertension NSTEMI (non-ST elevated myocardial infarction) Right lower lobe pulmonary nodule Surgical History History of aortic valve replacement History of back surgery History of cataract surgery History of coronary artery bypass graft History of right mastectomy Family History Mother Breast cancer Father Myocardial infarction Denies family history of Colon cancer Ovarian cancer Prostate cancer Social History Smoking Status: Former smoker Second Hand Exposure: No; Do You Dip or Chew Tobacco: No; Hx Alcohol Use: No Hx Substance Use: No Preferred Language: Portuguese Communication Ability: Effective Visual Impairment: No Limitations Hearing Ability: Normal Value Analyst Required: No Beliefs That Will Affect Care: None marital status: Single Current Living Situation: Alone Current Living Situation Comment: Lives home alone current occupational status: retired How many Children do You have: 0 Other Information That Helps Us Care for You: No Feels Safe at Home: Yes Safety Concerns: Feels Safe At This Time Childhood Exposure to Second-Hand Smoke: No caffeine: Yes (1 cup of coffee daily) Dental Care, Regularly: Yes Physical Activity Frequency: 1-2 Times per Week Seatbelt Use: always Sunscreen Use: No Assistive Devices: Cane Allergies Allergies Allergy/AdvReac Type Severity Reaction Status Date / Time bee venom protein (honey bee) Allergy Severe ANAPHYLAXIS Verified 10/23/22 15:12 Home Meds Home Medications Medication Instructions Recorded Confirmed letrozole 2.5 mg tablet 2.5 mg PO DAILY 01/03/19 10/23/22 cholecalciferol (vitamin D3) 50 2,000 units PO DAILY 11/28/19 10/23/22 mcg (2,000 unit) capsule alendronate 35 mg tablet 35 mg PO WK 09/26/21 10/23/22 fluticasone propionate 50 1 spray intranasal DAILY PRN 10/20/21 10/23/22 mcg/actuation nasal Allergy Symptoms spray,suspension (Flonase Allergy Relief) carvedilol 6.25 mg tablet 12.5 mg PO BID 10/23/22 10/23/22 glimepiride 2 mg tablet 2 mg PO DAILY 10/23/22 10/23/22 Previous Rx's Medication Instructions Recorded aspirin 81 mg tablet,delayed 81 mg PO DAILY #30 tabs 12/31/18 release budesonide-formoterol HFA 80 2 puff inhalation BID PRN Allergic 04/22/22 mcg-4.5 mcg/actuation aerosol Symptoms #10.2 grams inhaler (Symbicort) furosemide 20 mg tablet 20 mg PO QAM #90 tabs 07/12/22 albuterol sulfate 90 mcg/actuation 1 inh inhalation QID PRN Shortness 08/07/22 aerosol inhaler Of Breath #6.7 grams famotidine 40 mg tablet 40 mg PO DAILY #90 tabs 08/07/22 metformin 1,000 mg tablet 1,000 mg PO BID #180 tabs 08/07/22 atorvastatin 80 mg tablet 80 mg PO HS #90 tabs 08/22/22 potassium chloride 20 mEq 20 meq PO DAILY #120 tabs 09/25/22 tablet,extended release Results & Data (ED) Vital Signs Vital Signs - 24 hr 10/23/22 17:35 10/23/22 18:25 10/23/22 18:23 Temperature 36.6 C Temperature Source Temporal Artery Scan Pulse Rate 71 71 Pulse Rate [Apical] 79 Pulse Rhythm [Apical] Pulse Strength [Apical] Respiratory Rate 18 18 Respiratory Effort / Characteristics Non-Labored Non-Labored Spontaneous Respiratory Depth Normal Normal Respiratory Pattern Regular Regular Blood Pressure [Left Arm] 124/76 Blood Pressure Mean [Left Arm] 92 Blood Pressure Position [Left Arm] Lying Pulse Oximetry 97 96 Oxygen Delivery Method Room Air Sepsis Recent Fever Within 48 Hours No Sepsis New/Unexplained Change in Mental Status N/A Sepsis Action Taken by Nursing No Action Required 10/23/22 19:30 10/23/22 21:00 Temperature Temperature Source Pulse Rate Pulse Rate [Apical] 82 77 Pulse Rhythm [Apical] Regular Regular Pulse Strength [Apical] Normal Normal Respiratory Rate 17 26 H Respiratory Effort / Characteristics Non-Labored Spontaneous Non-Labored Spontaneous Respiratory Depth Normal Normal Respiratory Pattern Regular Regular Blood Pressure [Left Arm] 132/79 144/85 H Blood Pressure Mean [Left Arm] 96 104 Blood Pressure Position [Left Arm] Lying Lying Pulse Oximetry 94 94 Oxygen Delivery Method Room Air Room Air Sepsis Recent Fever Within 48 Hours Sepsis New/Unexplained Change in Mental Status Sepsis Action Taken by Skilled Nursing Medications Current Medication List: was personally reviewed by me Laboratory Data Attestation: I reviewed the patient's lab results. 10/23/22 18:36 Lab Results 10/23/22 10/23/22 10/23/22 Range/Units 18:36 18:36 18:36 WBC 7.83 (4.8-10.8) K/ul RBC 4.20 (4.20-5.40) M/uL Hgb 12.2 (12.0-16.0) g/dl Hct 37.8 (37.0-47.0) % MCV 90.0 (80.0-100.0) fL MCH 29.0 (25.0-34.0) pg MCHC 32.3 (32.0-36.0) g/dL RDW Std Deviation 49.8 H (36.4-46.3) fL RDW Coeff of [place] 15.2 H (11.5-14.5) % Plt Count 201 (130-400) K/uL MPV 10.0 (9.4-12.4) fL Immature Gran % (Auto) 0.3 % Neut % (Auto) 75.3 % Lymph % (Auto) 13.9 % [place] % (Auto) 8.4 % Eos % (Auto) 1.7 % Baso % (Auto) 0.4 % Neut # (Auto) 5.90 (1.40-6.50) K/uL Lymph # (Auto) 1.09 L (1.2-3.4) K/uL [place] # (Auto) 0.66 H (0.11-0.59) K/uL Eos # (Auto) 0.13 (0-0.50) K/uL Baso # (Auto) 0.03 (0-0.2) K/uL Immature Gran # (Auto) 0.02 (0.01-0.20) K/uL PT 12.0 (9.0-12.0) Seconds INR 1.1 (0.9-1.1) APTT 25.6 (21.0-31.0) Seconds PTT Ratio 0.9 Sodium 143 (136-145) mmol/L Potassium 4.0 (3.5-5.1) mmol/L Chloride 105 (98-107) mmol/L Carbon Dioxide 25 (21-32) mmol/L Anion Gap 13 H (3-11) BUN 28 H (6-23) mg/dl Creatinine 1.24 H (0.6-1.2) mg/dl Est Cr Clr Drug Dosing 41.6 ml/min Est GFR ( Amer) 48.9 ml/min Est GFR (Non-Af Amer) 42.2 ml/min BUN/Creatinine Ratio 22.6 H (10-20) Glucose 72 (70-99(Fasting)) mg/dl Calcium 9.6 (8.6-10.3) mg/dl Magnesium 1.3 L (1.7-2.4) mg/dl Total Bilirubin 0.5 (0.2-1.0) mg/dl AST 9 L (13-39) U/L ALT 5 L (7-52) U/L Alkaline Phosphatase 60 (34-104) U/L Troponin I High Sens 18.5 H (0-14) pg/ml Total Protein 6.9 (6.0-8.3) gm/dl Albumin 3.9 (3.4-5.0) gm/dl Globulin 3.0 (2.5-4.0) gm/dl Albumin/Globulin Ratio 1.3 (0.9-2) Administered Medications Discontinued Medications Sodium Chloride (Nss) 500 mls @ 999 mls/hr IV .Q31M ONE Stop: 10/23/22 18:31 Last Admin: 10/23/22 18:53 Dose: Not Given Documented By: NICHOLAS Magnesium Sulfate/Dextrose (Magnesium Sulfate / D5w) 1 gm in 100 mls @ 100 mls/hr IV NOW STA Stop: 10/23/22 20:30 Last Infusion: 10/23/22 21:14 Dose: 0 mls/hr Documented By: Admin: 10/23/22 19:46 Dose: 100 mls/hr Documented By: STEVEN Piperacillin Sod/Tazobactam Sod (Zosyn) 4.5 gm in 120 mls @ 240 mls/hr IV NOW O NE Stop: 10/23/22 21:51 Last Infusion: 10/23/22 22:37 Dose: 0 mls/hr Documented By: Admin: 10/23/22 22:04 Dose: 240 mls/hr Documented By: STEVEN Ioversol (Optiray 320 125ml) 120 ml IV ONCE ONE Stop: 10/23/22 20:12 Last Admin: 10/23/22 20:12 Dose: 120 ml Documented By: CHANTAL Ioversol (Optiray 320 125ml) 121 ml IV ONCE ONE Stop: 10/23/22 20:46 Last Admin: 10/23/22 20:45 Dose: 121 ml Documented By: CHANTAL Imaging Data Radiologist's Impression: Chest CTA 10/23/22 18:02 Exam(s): CTA CHEST IV Amt: 121 ml optiray 320 EXAM: CT Angiography Chest With Intravenous Contrast CLINICAL HISTORY: Reason for exam: L pulmonary effusion. TECHNIQUE: Axial computed tomographic angiography images of the chest with intravenous contrast. CTDI is 27.81 mGy and DLP is 863.15 mGy-cm. Automated exposure control was utilized for the study. A dose lowering technique was utilized adhering to the principles of ALARA. MIP reconstructed images were created and reviewed. COMPARISON: No relevant prior studies available. FINDINGS: Pulmonary arteries: Unremarkable. No pulmonary embolism. Aorta: Atherosclerotic changes of the aorta. No thoracic aortic aneurysm. Lungs: Extensive aspiration pneumonia, including extensive debris which fully occludes the LEFT mainstem bronchus and remaining bronchi. Complete atelectasis of the LEFT lung. Moderate LEFT pleural effusion. No mass. Pleural space: See above. Heart: Cardiomegaly. No significant pericardial effusion. No evidence of RV dysfunction. Bones/joints: Sternotomy wires. Degenerative changes of the spine. No acute fracture. No dislocation. Soft tissues: Unremarkable. Lymph nodes: Unremarkable. No enlarged lymph nodes. Gallbladder and bile ducts: Cholelithiasis. IMPRESSION: Extensive aspiration pneumonia, including extensive debris which fully occludes the LEFT mainstem bronchus and remaining bronchi. Complete atelectasis of the LEFT lung. Moderate LEFT pleural effusion. Electronically signed by: Candido Carrillo MD 10/23/22 21:08 PM Discharge Plan Visit Data Chief Complaint: Abnormal Labs/Diagnostic Testing Stated Complaint: REF BY DOC,L LUNG FULL OF FLUID ED Provider: Trent Benavides Discharge Problem: SOB (shortness of breath), Weakness, Collapsed lung, Elevated troponin, Hypoma gnesemia Patient Disposition: Admitted As Inpatient Condition: Fair Discharge Instructions Interventions: ED Discharge Assessment Last Done: 10/23/22 22:57
[2022-10-23 19:20] LABS: Basophils # (auto) 0.03 K/uL (0-0.2); Basophils % (auto) 0.4 %; Eosinophils # (auto) 0.13 K/uL (0-0.50); Eosinophils % (auto) 1.7 %; Hematocrit (blood only) 37.8 % (37.0-47.0); Hemoglobin 12.2 g/dl (12.0-16.0); Immature Granulocytes # (auto) 0.02 K/uL (0.01-0.20); Immature Granulocytes % (auto) 0.3 %; Lymphocytes # (auto) 1.09 K/uL (1.2-3.4); Lymphocytes % (auto) 13.9 %; Mean Corpuscular Hgb Conc 32.3 g/dL (32.0-36.0); Monocytes # (auto) 0.66 K/uL (0.11-0.59); Monocytes % (auto) 8.4 %; Neutrophils % (auto) 75.3 %; Platelet Count 201 K/uL (130-400); RDW Coefficient of Variation 15.2 % (11.5-14.5); RDW Standard Deviation 49.8 fL (36.4-46.3); White Blood Count 7.83 K/ul (4.8-10.8)
[2022-10-23 19:25] LABS: Albumin Level 3.9 gm/dl (3.4-5.0); Bilirubin,Total 0.5 mg/dl (0.2-1.0); Calcium 9.6 mg/dl (8.6-10.3); Magnesium 1.3 mg/dl (1.7-2.4)
[2022-10-23 19:29] LABS: INR 1.1 (0.9-1.1); Partial Thromboplastin Ratio 0.9; Partial Thromboplastin Time 25.6 Seconds (21.0-31.0)
[2022-10-23 19:31] LABS: Albumin Globulin Ratio 1.3 (0.9-2); BUN Creatinine Ratio 22.6 (10-20); Creatinine Clr Calc Pharmacy 41.6 ml/min; Est GFR (African American) 48.9 ml/min; Est GFR (Non-African American) 42.2 ml/min; Total Protein 6.9 gm/dl (6.0-8.3)
[2022-10-23] MEDS ORDERED: MAGNESIUM SULFATE / D5W 1 GM/100 ML BAG IV STA (19:31)
[2022-10-23 19:33] LABS: Troponin I High Sensitivity 18.5 pg/ml (0-14)
[2022-10-23] MEDS ORDERED: OPTIRAY 320 125ml IV ONE ×2 (20:11→20:45)
--- NOTE | 2022-10-23 21:09 | CT Scan Report ---
Exam(s): CTA CHEST IV Amt: 121 ml optiray 320 EXAM: CT Angiography Chest With Intravenous Contrast CLINICAL HISTORY: Reason for exam: L pulmonary effusion. TECHNIQUE: Axial computed tomographic angiography images of the chest with intravenous contrast. CTDI is 27.81 mGy and DLP is 863.15 mGy-cm. Automated exposure control was utilized for the study. A dose lowering technique was utilized adhering to the principles of ALARA. MIP reconstructed images were created and reviewed. COMPARISON: No relevant prior studies available. FINDINGS: Pulmonary arteries: Unremarkable. No pulmonary embolism. Aorta: Atherosclerotic changes of the aorta. No thoracic aortic aneurysm. Lungs: Extensive aspiration pneumonia, including extensive debris which fully occludes the LEFT mainstem bronchus and remaining bronchi. Complete atelectasis of the LEFT lung. Moderate LEFT pleural effusion. No mass. Pleural space: See above. Heart: Cardiomegaly. No significant pericardial effusion. No evidence of RV dysfunction. Bones/joints: Sternotomy wires. Degenerative changes of the spine. No acute fracture. No dislocation. Soft tissues: Unremarkable. Lymph nodes: Unremarkable. No enlarged lymph nodes. Gallbladder and bile ducts: Cholelithiasis. IMPRESSION: Extensive aspiration pneumonia, including extensive debris which fully occludes the LEFT mainstem bronchus and remaining bronchi. Complete atelectasis of the LEFT lung. Moderate LEFT pleural effusion. Electronically signed by: Candido Carrillo MD 10/23/22 21:08 PM
[2022-10-23] MEDS ORDERED: PIPERACILLIN/TAZOBACTAM 4.5 GM/120 ML BAG IV ONE (21:22)
--- NOTE | 2022-10-23 21:40 | History & Physical Report ---
Date of Service October 23, 2022 Assessment & Plan (1) Aspiration pneumonia: Plan: 76yo Female with PMH HFpEF s/p CABG, GERD, DM2, breast cancer, HTN HLD sent by PCP for concern aspiration pneumonia. Aspiration Pneumonia -CT chest: Extensive aspiration pneumonia, including extensive debris which fully occludes the LEFT mainstem bronchus and remaining bronchi.Complete atelectasis of the LEFT lung. Moderate LEFT pleural effusion. -94% pulse ox on room air, RR 26 -received zosyn in ED -continue zosyn -consult placed to pulm Patient's primary contact Pat requests phone call if she gets bronchoscopy -admit to PCU/tele -NPO -ordered speech consult Hx. Breast cancer -letrozole on hold DM2 -ordered SSI HLD, HTN, HFpEF -hold atorvastatin -hold aspirin, carvedilol, lasix -if needed can give lasix IV for fluid overload -if needed can give IV metoprolol for HTN GERD -continue famotidine IV FENa: NPO Code Status: Full DVT PPX: SCDs PT/OT: ordered Dispo: PCU/tele Sienna Pinzon D.O. PGY 3, FCM (2) Pleural effusion, left: (3) CAD (coronary artery disease): (4) (HFpEF) heart failure with preserved ejection fraction: (5) Gastroesophageal reflux disease: (6) Diabetes mellitus type II, controlled: (7) GERD (gastroesophageal reflux disease): (8) History of breast cancer: (9) Hypertension: (10) Dyslipidemia: (11) History of coronary artery bypass graft: (12) History of aortic valve replacement: History of Present Illness Chief Complaint: Aspiration Pneumonia Primary Care Provider: Daisy Johnson MD 76yo Female with PMH HFpEF s/p CABG, GERD, DM2, breast cancer, HTN HLD sent by PCP for concern aspiration pneumonia. Patient states she has been coughing since April, had CXR at that time trace pleural effusion. PCP ordered repeat CXR today noted white out of left lung sent patient to ED. Patient denies any SOB fever chills nausea vomitting chest pain abd pain, denies any difficulty with swallowing, denies history of stroke. Patient lives alone, her neighbor Pat comes by to check on her and help with medications. Allergies Allergy/AdvReac Type Severity Reaction Status Date / Time bee venom protein (honey bee) Allergy Severe ANAPHYLAXIS Verified 10/23/22 15:12 Home Medications Medication Instructions Recorded Confirmed Type aspirin 81 mg tablet,delayed 81 mg PO DAILY #30 tabs 12/31/18 10/23/22 Rx release letrozole 2.5 mg tablet 2.5 mg PO DAILY 01/03/19 10/23/22 History cholecalciferol (vitamin D3) 50 2,000 units PO DAILY 11/28/19 10/23/22 History mcg (2,000 unit) capsule alendronate 35 mg tablet 35 mg PO WK 09/26/21 10/23/22 History fluticasone propionate 50 1 spray intranasal DAILY PRN 10/20/21 10/23/22 History mcg/actuation nasal Allergy Symptoms spray,suspension (Flonase Allergy Relief) budesonide-formoterol HFA 80 2 puff inhalation BID PRN Allergic 04/22/22 10/23/22 Rx mcg-4.5 mcg/actuation aerosol Symptoms #10.2 grams inhaler (Symbicort) furosemide 20 mg tablet 20 mg PO QAM #90 tabs 07/12/22 10/23/22 Rx albuterol sulfate 90 mcg/actuation 1 inh inhalation QID PRN Shortness 08/07/22 10/23/22 Rx aerosol inhaler Of Breath #6.7 grams famotidine 40 mg tablet 40 mg PO DAILY #90 tabs 08/07/22 10/23/22 Rx metformin 1,000 mg tablet 1,000 mg PO BID #180 tabs 08/07/22 10/23/22 Rx atorvastatin 80 mg tablet 80 mg PO HS #90 tabs 08/22/22 10/23/22 Rx potassium chloride 20 mEq 20 meq PO DAILY #120 tabs 09/25/22 10/23/22 Rx tablet,extended release carvedilol 6.25 mg tablet 12.5 mg PO BID 10/23/22 10/23/22 History glimepiride 2 mg tablet 2 mg PO DAILY 10/23/22 10/23/22 History Past Med/Surg History Medical History Breast cancer CAD (coronary artery disease) Diabetes mellitus type II, controlled Dyslipidemia Elevated troponin Fatigue Gastroesophageal reflux disease Hypertension NSTEMI (non-ST elevated myocardial infarction) Right lower lobe pulmonary nodule Surgical History History of aortic valve replacement History of back surgery History of cataract surgery History of coronary artery bypass graft History of right mastectomy Family History Mother Breast cancer Father Myocardial infarction in his 40s Denies family history of Colon cancer Ovarian cancer Prostate cancer Social History Smoking Status: Former smoker Second Hand Exposure: No; Do You Dip or Chew Tobacco: No; Hx Alcohol Use: No Hx Substance Use: No Preferred Language: Ugandan Communication Ability: Effective Visual Impairment: No Limitations Hearing Ability: Normal Vacuum Frame Operator Required: No Beliefs That Will Affect Care: None marital status: Single Current Living Situation: Alone Current Living Situation Comment: Lives home alone current occupational status: retired How many Children do You have: 0 Feels Safe at Home: Yes Childhood Exposure to Second-Hand Smoke: No caffeine: Yes (1 cup of coffee daily) Dental Care, Regularly: Yes Physical Activity Frequency: 1-2 Times per Week Seatbelt Use: always Sunscreen Use: No Assistive Devices: Cane Physical Exam Constitutional: well developed, well nourished, cooperative and comfortable Eyes: PERRL, conjunctivae normal, anicteric sclerae ENMT: external ear and nose normal, oropharynx normal Neck: trachea midline, no thyromegaly Respiratory: Auscultation: + breath sounds absent (on left) Cardiovascular: Rate/Rhythm: regular rate and regular rhythm Extremities: + edema (+2 b/l LE) Gastrointestinal (Abdomen): Inspection/Auscultation: abdomen normal to inspection Percussion/Palpation: abdomen soft; abdomen nontender Skin: no rashes, warm and dry Results & Data Results & Data Vital Signs (Past 12 Hours) Vital Signs Temp Pulse Pulse Resp BP Pulse Ox O2 Del Method 10/23/22 21:00 77 26 H 144/85 H 94 Room Air 10/23/22 19:30 82 17 132/79 94 Room Air 10/23/22 18:23 71 10/23/22 18:25 79 18 124/76 96 Room Air 10/23/22 17:35 36.6 C 71 18 97 Supervising Physician Co-Signing Physician Notes Attending addendum: I have physically seen this patient, have supervised the medical residents activities, and agree with the H&P unless as otherwise noted. Assessment and Plan: Severe aspiration pneumonia with occlusion left mainstem bronchus and lung whiteout- Zosyn 4.5 g IV every 8 hours MRSA swab Consult pulmonology for bronchoscopy N.p.o. Patient will need speech consult Diabetes mellitus- Placed on Accu-Cheks with SSI Hypertension NPO/HFpEF- Hold aspirin, carvedilol and Lasix GERD- Placed on famotidine 20 mg IV every 12 hours Resident Activity Tracking Resident Involvement: Resident Care Provided Care Provided: Adult [facility]
[2022-10-23] MEDS ORDERED: GLUCAGON FOR INJ 1 MG VIAL SQ PRN (23:25)
[2022-10-23] MEDS ORDERED: GLUCOSE 10 TAB/TUBE PO PRN (23:25)
[2022-10-23] MEDS ORDERED: DEXTROSE 50% 50 ML SYRINGE IV PRN (23:25)
[2022-10-23] MEDS ORDERED: CARBOHYDRATES FOR HYPOGLYCEMIA PO PRN (23:25)
[2022-10-23] MEDS ORDERED: GLUCOSE 40% GEL 15 GM TUBE PO PRN (23:25)
[2022-10-24] MEDS: PIPERACILLIN/TAZOBACTAM 4.5 GM in DEXTROSE 5% 100 ML IV SCH ×3 (06:25→21:26)
[2022-10-24] MEDS: INSULIN ASPART PER UNIT CHARGE SC SCH ×4 (06:28→20:05)
--- NOTE | 2022-10-24 07:22 | Pulmonary Consultation ---
Date of Consultation October 24, 2022 Assessment & Plan (1) SOB (shortness of breath): (2) Aspiration pneumonia: (3) Collapsed lung: (4) Pleural effusion, left: (5) (HFpEF) heart failure with preserved ejection fraction: (6) History of breast cancer: Plan CT chest 10/23/2022 personally reviewed: Large left-sided pleural effusion with complete collapse of the left lung Secretions appreciated in the left main Right lower lobe pulmonary nodule, unchanged from before Patient has had multiple CAT scan in the past which showed left perihilar calcification and collapse of the left upper lobe --Left lung collapse Likely secondary to plugging from aspiration --Left-sided pleural effusion Etiology is not clear HFpEF is a possibility --Shortness of breath Likely secondary to aspiration pneumonia with left lung collapse as well as pleural effusion --Abnormal chest CT with chronic collapse of the left upper lobe I did discuss this finding with radiology, they do not think there is history of lobectomy on the left side -- History of breast cancer 28 years ago, s/p surgery and chemo -- Ex-smoker Only [id number] smoking history Quit in her 30s Plan: For bronchoscopy in OR today once OR Time available. Thoracentesis following that today or tomorrow. Risk and benefit of the procedure explained to the patient in depth She understands and agrees to go ahead with the procedure Consent signed, witnessed and put in the chart Please note the above document was generated using voice recognition software. It may contain grammatical, syntax or spelling errors.Any formal questions or concerns about the content, text or information contained within the body of this dictation should be directly addressed to the provider for clarification. History of Present Illness Attending Physician: Noah Child MD History of Present Illness 76-year-old female present to the hospital with complaints of shortness of breath Past medical history: Breast cancer s/p surgery and chemo, hypertension, dyslipidemia, hypertension, HFpEF, GERD Pulmonary consulted for left-sided pleural effusion and collapse of the left lung At the time of examination patient was resting comfortably, she was saturating 92-93% on room air She did complain of cough especially when she is eating Denies any fever or chills Occasional difficulty swallowing No dysuria, no diarrhea No headache, no blurry vision Denies any nausea vomiting right now Does complain of unintentional weight loss as she was not able to eat much and had poor appetite. 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 Pets: No birds or poultry nearby No history of lung cancer in the family Allergies Allergy/AdvReac Type Severity Reaction Status Date / Time bee venom protein (honey bee) Allergy Severe ANAPHYLAXIS Verified 10/23/22 15:12 Home Medications Medication Instructions Recorded Confirmed Type aspirin 81 mg tablet,delayed 81 mg PO DAILY #30 tabs 12/31/18 10/23/22 Rx release letrozole 2.5 mg tablet 2.5 mg PO DAILY 01/03/19 10/23/22 History cholecalciferol (vitamin D3) 50 2,000 units PO DAILY 11/28/19 10/23/22 History mcg (2,000 unit) capsule alendronate 35 mg tablet 35 mg PO WK 09/26/21 10/23/22 History fluticasone propionate 50 1 spray intranasal DAILY PRN 10/20/21 10/23/22 History mcg/actuation nasal Allergy Symptoms spray,suspension (Flonase Allergy Relief) budesonide-formoterol HFA 80 2 puff inhalation BID PRN Allergic 04/22/22 10/23/22 Rx mcg-4.5 mcg/actuation aerosol Symptoms #10.2 grams inhaler (Symbicort) furosemide 20 mg tablet 20 mg PO QAM #90 tabs 07/12/22 10/23/22 Rx albuterol sulfate 90 mcg/actuation 1 inh inhalation QID PRN Shortness 08/07/22 10/23/22 Rx aerosol inhaler Of Breath #6.7 grams famotidine 40 mg tablet 40 mg PO DAILY #90 tabs 08/07/22 10/23/22 Rx metformin 1,000 mg tablet 1,000 mg PO BID #180 tabs 08/07/22 10/23/22 Rx atorvastatin 80 mg tablet 80 mg PO HS #90 tabs 08/22/22 10/23/22 Rx potassium chloride 20 mEq 20 meq PO DAILY #120 tabs 09/25/22 10/23/22 Rx tablet,extended release carvedilol 6.25 mg tablet 12.5 mg PO BID 10/23/22 10/23/22 History glimepiride 2 mg tablet 2 mg PO DAILY 10/23/22 10/23/22 History Patient History Medical History Breast cancer CAD (coronary artery disease) Diabetes mellitus type II, controlled Dyslipidemia Elevated troponin Fatigue Gastroesophageal reflux disease Hypertension NSTEMI (non-ST elevated myocardial infarction) Right lower lobe pulmonary nodule Surgical History History of aortic valve replacement History of back surgery History of cataract surgery History of coronary artery bypass graft History of right mastectomy Family History Mother Breast cancer Father Myocardial infarction in his 40s Denies family history of Colon cancer Ovarian cancer Prostate cancer Social History Smoking Status: Former smoker Second Hand Exposure: No; Do You Dip or Chew Tobacco: No; Hx Alcohol Use: No Hx Substance Use: No Preferred Language: Latvian Communication Ability: Effective Visual Impairment: No Limitations Hearing Ability: Normal Magnetic Locater Required: No Beliefs That Will Affect Care: None marital status: Single Current Living Situation: Alone Current Living Situation Comment: Lives home alone current occupational status: retired How many Children do You have: 0 Feels Safe at Home: Yes Childhood Exposure to Second-Hand Smoke: No caffeine: Yes (1 cup of coffee daily) Dental Care, Regularly: Yes Physical Activity Frequency: 1-2 Times per Week Seatbelt Use: always Sunscreen Use: No Assistive Devices: Cane Review of Systems Review of Systems: All systems reviewed & are unremarkable except as noted in HPI & below Physical Exam Physical Exam: Constitutional: No acute distress HEENT: EOMI, PERRLA Respiratory system: Decreased air entry on the left side, no wheeze, no rhonchi, positive crackles bilateral lower lobes CVS: S1-S2 positive, no murmurs or gallops Abdomen: Soft, nontender, nondistended, positive bowel sounds x4 Extremities: +2 pulses bilaterally radialis/ dorsalis pedis, no cyanosis, no edema Neuro: Awake alert oriented x3 Psych: Normal mood and affect G/U: No [place] Skin: no rashes, warm and dry Lymphatic: no cervical or axillary lymphadenopathy Results & Data Results & Data Vital Signs (Past 12 Hours) Vital Signs Temp Pulse Pulse Resp BP Pulse Ox O2 Del Method 10/23/22 23:47 76 10/24/22 03:17 36.9 C 58 L 15 106/63 95 Room Air 10/23/22 23:32 Room Air 10/23/22 23:25 36.4 C L 77 15 136/80 92 Room Air 10/23/22 22:57 75 17 95 Room Air 10/23/22 22:22 75 10/23/22 22:24 74 25 H 113/63 94 Room Air 10/23/22 21:00 77 26 H 144/85 H 94 Room Air 10/23/22 19:30 82 17 132/79 94 Room Air Laboratory Results 10/24/22 06:43 10/24/22 06:43 PG Care Time/CCT Total # of Minutes Spent Total Time Spent with Patient: Total time spent is greater than 50% in coordination of care (as documented) at patient's floor/unit and/or counseling patient: Coding Level of Care Code 00973 INT INP/OBS CARE 3/75MIN Diagnoses SOB (shortness of breath) R06.02 Aspiration pneumonia J69.0 Collapsed lung J98.19 Pleural effusion, left J90 (HFpEF) heart failure with preserved ejection fraction I50.30 History of breast cancer Z85.3
[2022-10-24 07:38] LABS: Hematocrit (blood only) 36.5 % (37.0-47.0); Hemoglobin 12.2 g/dl (12.0-16.0); Mean Corpuscular Hemoglobin 29.3 pg (25.0-34.0); Mean Corpuscular Hgb Conc 33.4 g/dL (32.0-36.0); Mean Corpuscular Volume 87.7 fL (80.0-100.0); Mean Platelet Volume 9.7 fL (9.4-12.4); Platelet Count 182 K/uL (130-400); RDW Coefficient of Variation 14.7 % (11.5-14.5); RDW Standard Deviation 46.9 fL (36.4-46.3); Red Blood Count 4.16 M/uL (4.20-5.40)
--- NOTE | 2022-10-24 07:42 | Hospitalist Progress Note ---
Date of Service October 24, 2022 Assessment & Plan (1) Aspiration pneumonia: Plan: 76yo Female with PMH HFpEF s/p CABG, GERD, DM2, breast cancer, HTN HLD significant aspiration pneumonia on admission . Aspiration Pneumonia acute high risk bronchoscopic exam remove thick nature this mucous entrance to the left upper lobe could not be as there was a stump visible versus granulation tissue large pleural effusion is noted will likely be addressed in the future during his hospital stay given appearance of bronchoscopy and subjective report of weight loss concern of course would be of malignancy -CT chest: Extensive aspiration pneumonia, including extensive debris which fully occludes the LEFT mainstem bronchus and remaining bronchi.Complete atelectasis of the LEFT lung. Moderate LEFT pleural effusion. oximetry is stable remains on [facility] pulmonary medicine did a bronchoscopy with results as above planning on thoracentesis in the short-term future patient's passed swallowing study without evidence of aspiration Hx. Breast cancer -letrozole on hold Code Status: Full DVT PPX: SCDs PT/OT: ordered (2) (HFpEF) heart failure with preserved ejection fraction: Plan: patient is a history of CABG and aortic valve replacement and heart failure preserved ejection fraction. She is euvolemic at this time although is white out of her left chest typically on aspirin atorvastatin carvedilol. Furosemide 20 mg a day holding all medicines at this time (3) Diabetes mellitus type II, controlled: Plan: patient typically on metformin plus commend provide will be on basal bolus insulin at this time (4) History of breast cancer: Admission and Anticipated Discharge Date Admission Date: October 23, 2022 Subjective patient seen postprocedure she is awake and alert she was having no issues or problems. Pulmonary examination did not show any airflow to the left side on auscultation. Patient did well with swallowing evaluation earlier today. Physical Exam Physical Exam: Patient awake and alert she appears stable pulm examination shows no air movement on the left side this is after bronchoscopy Results & Data Results & Data Vital Signs (Past 12 Hours) Vital Signs Temp Pulse Pulse Resp BP Pulse Ox O2 Del Method 10/23/22 23:47 76 10/24/22 03:17 98.4 F 58 L 15 106/63 95 Room Air 10/23/22 23:32 Room Air 10/23/22 23:25 97.5 F L 77 15 136/80 92 Room Air 10/23/22 22:57 75 17 95 Room Air 10/23/22 22:22 75 10/23/22 22:24 74 25 H 113/63 94 Room Air 10/23/22 21:00 77 26 H 144/85 H 94 Room Air Diagnostic Findings bronchoscopy was able to find mucous plugs appreciate the left mainstem going to the left upper as well as left lower lobe. The left upper lobe entrance was not visible but seems that there was a stump versus granulation tissue friable mucosa was appreciated throughout the left lung PG Care Time/CCT Total # of Minutes Spent Total Time Spent with Patient: Total time spent is greater than 50% in coordination of care (as documented) at patient's floor/unit and/or counseling patient: Coding Level of Care Code 70975 SUB INP/OBS CARE 3/50MIN Diagnoses Aspiration pneumonia J69.0 (HFpEF) heart failure with preserved ejection fraction I50.30 Diabetes mellitus type II, controlled E11.9 History of breast cancer Z85.3
[2022-10-24 08:26] LABS: BUN Creatinine Ratio 22.6 (10-20); Calcium 9.2 mg/dl (8.6-10.3); Creatinine Clr Calc Pharmacy 46.9 ml/min; Est GFR (African American) 59.1 ml/min; Magnesium 1.6 mg/dl (1.7-2.4)
[2022-10-24] MEDS ORDERED: LIDOCAINE 2% 2 ML VIAL/AMP(20MG/ML) INFIL ONE (09:41)
[2022-10-24] MEDS ORDERED: SUCCINYLCHOLINE CHLORIDE 20 MG/ML 10 ML VIAL IV ONE (09:41)
[2022-10-24] MEDS ORDERED: PROPOFOL IV EMULSION 10 MG/ML 20 ML VIAL IV ONE ×3 (09:41)
[2022-10-24] MEDS ORDERED: ONDANSETRON INJ 2 MG/ML 2 ML VIAL ONE (09:44)
[2022-10-24] MEDS ORDERED: DEXAMETHASONE SOD INJ 4 MG/ML VIAL ONE (09:44)
[2022-10-24] MEDS ORDERED: fentaNYL citrate PF 100 MCG/2 ML VIAL ONE (09:48)
[2022-10-24] MEDS ORDERED: KETAMINE 50 MG/5 ML SYRINGE ONE (09:48)
--- NOTE | 2022-10-24 10:34 | Anesthesiology Consultation ---
Date of Service October 24, 2022 Assessment & Plan Chart Review Chart Review: Acceptable Risk for Surgery and Patient NOT seen in Pre Admission Testing Consults Requested none ASA ASA4 Proposed Anesthesia Anesthesia Type: General Risk / Benefits Reviewed With: PT / POA / Parent / Guardian, Accepts Plan and Informed Consent Obtained History Surgery Operation Date: 10/24/22 08:10 Proposed Procedures p [facility] Height/Weight Height: 5 ft 5 in Weight: 78.9 kg Allergies Allergy/AdvReac Type Severity Reaction Status Date / Time bee venom protein (honey bee) Allergy Severe ANAPHYLAXIS Verified 10/23/22 15:12 Medications Home Medications Medication Instructions Recorded Confirmed Last Taken aspirin 81 mg tablet,delayed 81 mg PO DAILY #30 tabs 12/31/18 10/23/22 10/20/21 release letrozole 2.5 mg tablet 2.5 mg PO DAILY 01/03/19 10/23/22 10/19/21 09:00 cholecalciferol (vitamin D3) 50 2,000 units PO DAILY 11/28/19 10/23/22 10/19/21 09:00 mcg (2,000 unit) capsule alendronate 35 mg tablet 35 mg PO WK 09/26/21 10/23/22 10/19/21 09:00 fluticasone propionate 50 1 spray intranasal DAILY PRN 10/20/21 10/23/22 Unknown mcg/actuation nasal Allergy Symptoms spray,suspension (Flonase Allergy Relief) budesonide-formoterol HFA 80 2 puff inhalation BID PRN Allergic 04/22/22 10/23/22 Unknown mcg-4.5 mcg/actuation aerosol Symptoms #10.2 grams inhaler (Symbicort) furosemide 20 mg tablet 20 mg PO QAM #90 tabs 07/12/22 10/23/22 Unknown albuterol sulfate 90 mcg/actuation 1 inh inhalation QID PRN Shortness 08/07/22 10/23/22 Unknown aerosol inhaler Of Breath #6.7 grams famotidine 40 mg tablet 40 mg PO DAILY #90 tabs 08/07/22 10/23/22 Unknown metformin 1,000 mg tablet 1,000 mg PO BID #180 tabs 08/07/22 10/23/22 Unknown atorvastatin 80 mg tablet 80 mg PO HS #90 tabs 08/22/22 10/23/22 Unknown potassium chloride 20 mEq 20 meq PO DAILY #120 tabs 09/25/22 10/23/22 Unknown tablet,extended release carvedilol 6.25 mg tablet 12.5 mg PO BID 10/23/22 10/23/22 Unknown glimepiride 2 mg tablet 2 mg PO DAILY 10/23/22 10/23/22 Unknown Active Medications Generic Name Dose Route Start Last Admin Trade Name Mallory PRN Reason Stop Dose Admin Piperacillin Sod/Tazobactam 120 mls @ 30 mls/hr 10/24/22 06:00 10/24/22 06:25 Sod 4.5 gm/ Dextrose IV 10/31/22 05:59 30 mls/hr Q8H MERCEDES Administration Protocol Insulin Aspart 0 units 10/24/22 06:00 10/24/22 06:28 Insulin Aspart Per Unit Charge SC 11/23/22 05:59 Not Given Q6 MERCEDES NPO Date Last Intake of Fluids: 10/23/22 Time Last Intake of Fluids: 21:00 Date Last Intake of Solids: 10/23/22 Time Last Intake of Solids: 17:00 Past Medical History Medical History Breast cancer CAD (coronary artery disease) Diabetes mellitus type II, controlled Dyslipidemia Elevated troponin Fatigue Gastroesophageal reflux disease Hypertension NSTEMI (non-ST elevated myocardial infarction) Right lower lobe pulmonary nodule Exercise / Class Metabolic Activity III < 4 Walking/Shop/Light housework Past Family History Family History Mother Breast cancer Father Myocardial infarction in his 40s Denies family history of Colon cancer Ovarian cancer Prostate cancer Past Surgical History Surgical History History of aortic valve replacement History of back surgery History of cataract surgery History of coronary artery bypass graft History of right mastectomy Past Anesthesia History No Hx of Anesthesia Complications and No Family Hx of Anesthesia Complications History of PONV No Hx of PONV and No Hx of Motion Sickness Social History Smoking Status: Former smoker tobacco type: cigarettes Do You Dip or Chew Tobacco: No Hx Alcohol Use: No alcohol intake frequency: holidays/special occasions only Hx Substance Use: No substance use type: does not use Physical Exam Vital Signs Last Vital Signs Temp 36.9 C 10/24/22 09:25 Pulse 71 10/24/22 09:25 Resp 20 10/24/22 09:25 BP 134/72 10/24/22 09:25 Pulse Ox 94 10/24/22 09:25 O2 Del Method Room Air 10/24/22 09:25 Constitutional + obese; no acute distress ENMT Mouth: + dentition abnormality and + poor dentition Thyromental Distance: < 3.5 Finger Breadths Mallampati Class: II Neck normal visual inspection and trachea midline; neck extension not limited Respiratory normal respiratory effort Auscultation: + diminished lung sounds and + crackles Cardiovascular Rate/Rhythm: regular rate and regular rhythm Heart Sounds: + murmur Vessels: no carotid bruit Musculoskeletal Spine: normal cervical ROM and no pain with cervical ROM Extremities: full ROM of extremities Neurologic moves all extremities Motor/Sensory: + sensory deficit (diabetic PN feet) Psychiatric Orientation: alert and oriented x 3 Testing Laboratory Results 10/24/22 06:43 10/24/22 06:43 PT 12.0 Seconds (9.0-12.0) 10/23/22 18:36 INR 1.1 (0.9-1.1) 10/23/22 18:36 APTT 25.6 Seconds (21.0-31.0) 10/23/22 18:36 10/24/22 06:26 POC Glucose 74 Electrocardiogram Date: 10/23/22 Findings: + NSR @ (@ 74) Chest X-Ray Date: 10/23/22 Findings: + infiltrate (left lung) and + pleural effusion (left) Echocardiogram Date: 10/22/21 EF: 60% LV Function: normal RWMA: + none Other Findings: + atrial enlargement (severe left atrial) and + LVH Valvular Disease: + MR (mod.) mild - mod . MS Nl fxn bioprosthetic AV
--- NOTE | 2022-10-24 11:11 | Procedure Note ---
Procedure Note: Bronchoscopy Procedure PREOPERATIVE DIAGNOSIS: Left lung collapse POSTOPERATIVE DIAGNOSIS: Mucous plugging, aspiration debris in the left main, granulation/stump of the left upper lobe PROCEDURE PERFORMED: Flexible fiberoptic bronchoscopy with bronchoalveolar lavage, endobronchial biopsies, brushings COMPLICATIONS: None. INDICATION: Clearing the airways PROCEDURE: After obtaining an informed consent, the patient was brought to the OR. The patient had appropriate oxygen, blood pressure, heart rate, and respiratory rate monitoring applied and monitored continuously throughout the procedure. Sedation was managed by the anesthesiologist, please refer to their notes. Bronchoscope was advanced through the ETT. The trachea appeared normal. The bronchoscope was then advanced through the gary, which was sharp. The scope was then advanced into the right main stem and each segment, subsegement in the right upper lobe, right middle lobe and right lower lobe were visualized. There were minimal amount of clear secretion which were suctioned out. There were no other findings including evidence of mass, anatomic distortions, or hemorrhage. The bronchoscope was subsequently withdrawn and advanced into the left mainstem. Mucous plugs were appreciated at the left main going into the left upper as well as left lower. They have air thick but suctioned out successfully. Left upper lobe entrance was not visible it seemed that there was a stump vs granultion tissue. There was a small lingular opening but was unable to advance the scope. Left lower lobe segments were visualized. Friable mucosa was appreciated throughout left lung. A small lesion at the upper takeoff left upper lobe was appreciated and it was biopsied via forceps The bronchoscope was then wedged in the left upper lobe, lingula and bronchoalveolar lavage samples were obtained. 60 ml of saline was instilled and 40 ml of fluid was aspirated back.The bronchoscope was withdrawn and the area was suctioned clear. The bronchoscope was then wedged in the left lower lobe, anterior segment and bronchoalveolar lavage samples were obtained. 100 ml of saline was instilled and [] ml of fluid was aspirated back.The bronchoscope was withdrawn and the area was suctioned clear. Brushings were obtained of the left upper lobe lingula. Minimal hemorrhage was identified and suctioned clear without difficulty. The bronchoscope was then withdrawn to the mainstem. The area was suctioned clear. The bronchoscope was then withdrawn. The patient tolerated the procedure well without evidence of desaturation or complications. Bronchoalveolar lavage samples were sent for cell count, Gram stain and bacterial culture, AFB culture and smear, fungal culture and smear and cytology. Endobronchial biopsies were sent for pathology. Recommendations: Follow-up micro, cytology and pathology Follow-up chest x-ray Please note the above document was generated using voice recognition software. It may contain grammatical, syntax or spelling errors.Any formal questions or concerns about the content, text or information contained within the body of this dictation should be directly addressed to the provider for clarification. [facility] [place] (Charges) Pulmonary/Thoracic Procedure 1: Pulmonary and Thoracic: 84868 Dx bronchoscopy/brush Procedure 2: Pulmonary and Thoracic: 75659 Dx bronchoscopy/BAL Procedure 3: Pulmonary and Thoracic: 57820 Bronchoscopy w bronchial or endobronchial bx Procedure 4: Pulmonary and Thoracic: 56908 Bronchoscopy, clear airways
[2022-10-24] MEDS ORDERED: ePHEDrine sulfate 50 MG/ML AMP IV PRN (11:35)
[2022-10-24] MEDS ORDERED: ATROPINE SULFATE 0.1 MG/ML 10ML SYR IV PRN (11:35)
--- NOTE | 2022-10-24 12:22 | Anesthesiology Progress Note ---
Date of Service October 24, 2022 Anesthesia Post Procedure Vital Signs Vital Signs: Temp Pulse Pulse Resp BP Pulse Ox O2 Del Method 10/24/22 12:10 78 21 106/94 95 Nasal Cannula 10/24/22 11:55 Mechanical Vent 10/24/22 12:00 82 19 118/74 94 Nasal Cannula 10/24/22 11:50 87 24 118/74 90 Room Air 10/24/22 11:40 36 C L 90 23 114/65 96 Oxymask 10/24/22 09:00 72 10/24/22 09:00 Room Air 10/24/22 09:25 36.9 C 71 20 134/72 94 Room Air 10/24/22 07:30 37.0 C 60 18 110/65 95 Room Air 10/23/22 23:47 76 10/24/22 03:17 36.9 C 58 L 15 106/63 95 Room Air 10/23/22 23:32 Room Air 10/23/22 23:25 36.4 C L 77 15 136/80 92 Room Air 10/23/22 22:57 75 17 95 Room Air 10/23/22 22:22 75 10/23/22 22:24 74 25 H 113/63 94 Room Air 10/23/22 21:00 77 26 H 144/85 H 94 Room Air 10/23/22 19:30 82 17 132/79 94 Room Air 10/23/22 18:23 71 10/23/22 18:25 79 18 124/76 96 Room Air 10/23/22 17:35 36.6 C 71 18 97 O2 Flow Rate 10/24/22 12:10 3 10/24/22 11:55 10/24/22 12:00 3 10/24/22 11:50 10/24/22 11:40 7 10/24/22 09:00 10/24/22 09:00 10/24/22 09:25 10/24/22 07:30 10/23/22 23:47 10/24/22 03:17 10/23/22 23:32 10/23/22 23:25 10/23/22 22:57 10/23/22 22:22 10/23/22 22:24 10/23/22 21:00 10/23/22 19:30 10/23/22 18:23 10/23/22 18:25 10/23/22 17:35 Transfer of Care Handoff Completed per policy Notes Mental Status: alert / awake / arousable Patient Amnestic to Procedure: Yes Nausea / Vomiting: adequately controlled Pain: adequately controlled Airway Patency, RR, SpO2: stable & adequate BP & HR: stable & adequate Hydration State: stable & adequate Anesthetic Complications: no major complications apparent
[2022-10-24] MEDS: LANTUS PER UNIT CHARGE SQ SCH ×2 (12:37→20:06)
--- NOTE | 2022-10-24 12:51 | XRay Report ---
XR chest 1V portable HISTORY: Post Bronchoscopy COMPARISON: Chest 10/23/2022. FINDINGS: There is near complete opacities in the left hemithorax, unchanged. This is primarily due t o the large left pleural effusion seen on the prior study. There is also consolidation/partial collap se of the left lung likely due to mucous plugging as seen on the prior study. There is a left shoulde r prosthesis again noted. Prior left postthoracotomy changes and poststernotomy changes are again not ed. No pneumothorax. IMPRESSION: 1. Near-complete opacification of the left hemithorax, unchanged. 2. Large left pleural effusion again noted. 3. No pneumothorax. ACT 112: Negative or not required by law. Electronically signed by: Kike Soliz M.D. 10/24/2022 12:49 PM
[2022-10-24] MEDS: FAMOTIDINE 20 MG in SYRINGE 3 ML IV SCH (13:48)
--- NOTE | 2022-10-24 13:58 | Fluoroscopy Report ---
FL video swallow HISTORY: Pneumonia. assess for aspiration TECHNIQUE: Video fluoroscopic evaluation of swallowing was performed in the AP and lateral projection s by the speech pathology staff. The patient is fed nectar-thick and thin liquid barium, a barium coa mily wafer, and barium pudding. FLUOROSCOPY TIME: 1 minute and 43 seconds.. A cine loop was submitted. Ka,r: 13 mGy COMPARISON STUDY: None. FINDINGS: There is normal hyoid excursion and epiglottic deflection. No significant penetration or as piration identified. Swallowing function is within normal limits. IMPRESSION: 1. No aspiration identified. 2. Please see the speech pathologist report for detailed findings and recommendations. ACT 112: Negative or not required by law. Electronically signed by: Kike Soliz M.D. 10/24/2022 1:57 PM
[2022-10-24 14:44] LABS: Eosinophil Body Fluid Man 2 %; Fluid Mono/Macrophage 5 %; Lymphocyte Body Fluid Man 4 %; Neutrophil Body Fluid Man 89 %
[2022-10-24] MEDS ORDERED: SODIUM CHLORIDE 0.65% NA SOLN 45 ML (OCEAN) ONE (17:07)
[2022-10-24] MEDS ORDERED: Nursing to Pharmacy Communication SCH (19:15)
[2022-10-25] MEDS: PIPERACILLIN/TAZOBACTAM 4.5 GM in DEXTROSE 5% 100 ML IV SCH ×2 (05:01→14:45)
--- NOTE | 2022-10-25 05:47 | Billing Data ---
Date of Service October 25, 2022 Coding Level of Care Code 85480 INT INP/OBS CARE
--- NOTE | 2022-10-25 06:36 | Electrocardiogram Report ---
Test Reason : Blood Pressure : / mmHG Vent. Rate : 074 BPM Atrial Rate : 074 BPM P-R Int : 192 ms QRS Dur : 104 ms QT Int : 434 ms P-R-T Axes : 050 -04 075 degrees QTc Int : 481 ms Normal sinus rhythm Poor R wave progression, consider anterior FL vs. lead placement vs. LVH Prolonged QT When compared with ECG of 21-OCT-2021 05:26, Questionable change in QRS axis Confirmed by David Chris ([id number]) on 10/25/2022 6:35:46 AM Referred By: Daisy Johnson Confirmed By:David Chris
--- NOTE | 2022-10-25 07:38 | Pulmonology Progress Note ---
Date of Service October 25, 2022 Assessment & Plan (1) SOB (shortness of breath): (2) Aspiration pneumonia: (3) Collapsed lung: (4) Pleural effusion, left: (5) (HFpEF) heart failure with preserved ejection fraction: (6) History of breast cancer: Plan CT chest 10/23/2022 personally reviewed: Large left-sided pleural effusion with complete collapse of the left lung Secretions appreciated in the left main Right lower lobe pulmonary nodule, unchanged from before Patient has had multiple CAT scan in the past which showed left perihilar calci fication and collapse of the left upper lobe --Left lung collapse Likely secondary to plugging from aspiration S/p bronchoscopy 10/24/2022 with clearance of mucous plugging There was no entry to the left upper lobe, in the lingula entry was narrow. Patient has chronic calcification of the left upper lobe and narrowing on the previous CAT scans Likely has granulomatous tissue regular entry. BAL neutrophilic Biopsy of nodularity in the uptake of the left upper lobe was taken follow-up pathology --Left-sided pleural effusion Etiology is not clear HFpEF is a possibility For thoracentesis today --Shortness of breath Likely secondary to aspiration pneumonia with left lung collapse as well as pleural effusion --Abnormal chest CT with chronic collapse of the left upper lobe I did discuss this finding with radiology, they do not think there is history of lobectomy on the left side -- History of breast cancer 28 years ago, s/p surgery and chemo -- Ex-smoker Only [id number] smoking history Quit in her 30s Plan: For thoracentesis today After thoracentesis if the chest x-ray is without any complication then patient is okay to be discharged from pulmonary perspective. Case was discussed with Dr. Foote Please note the above document was generated using voice recognition software. It may contain grammatical, syntax or spelling errors.Any formal questions or concerns about the content, text or information contained within the body of this dictation should be directly addressed to the provider for clarification. Admission and Anticipated Discharge Date Admission Date: October 23, 2022 Subjective Patient seen and examined at bedside. No acute distress, no adverse events overnight. Denies any headache, no nausea, no vomiting No hemoptysis Shortness of breath is still there on exertion Denies any headache, no dizziness Fair appetite Review of Systems Review of Systems: All systems reviewed & are unremarkable except as noted in Subjective Physical Exam Physical Exam: Constitutional: No acute distress HEENT: EOMI, PERRLA Respiratory system: Decreased air entry on the left side, no wheeze, no rhonchi, positive crackles bilateral lower lobes CVS: S1-S2 positive, no murmurs or gallops Abdomen: Soft, nontender, nondistended, positive bowel sounds x4 Extremities: +2 pulses bilaterally radialis/ dorsalis pedis, no cyanosis, no edema Neuro: Awake alert oriented x3 Psych: Normal mood and affect G/U: No [place] Skin: no rashes, warm and dry Lymphatic: no cervical or axillary lymphadenopathy Results & Data Results & Data Vital Signs (Past 12 Hours) Vital Signs Temp Pulse Pulse Resp BP Pulse Ox O2 Del Method 10/25/22 03:01 36.5 C 75 18 136/83 97 Nasal Cannula 10/24/22 23:00 69 10/24/22 23:11 36.4 C L 70 16 94/60 L 98 Room Air 10/24/22 19:54 Nasal Cannula O2 Flow Rate 10/25/22 03:01 2 10/24/22 23:00 10/24/22 23:11 10/24/22 19:54 2 Laboratory Results 10/24/22 06:43 10/24/22 06:43 PG Care Time/CCT Total # of Minutes Spent Total Time Spent with Patient: Total time spent is greater than 50% in coordination of care (as documented) at patient's floor/unit and/or counseling patient: Coding Level of Care Code 37763 SUB INP/OBS CARE 3/50MIN Diagnoses SOB (shortness of breath) R06.02 Aspiration pneumonia J69.0 Collapsed lung J98.19 Pleural effusion, left J90 (HFpEF) heart failure with preserved ejection fraction I50.30 History of breast cancer Z85.3
[2022-10-25] MEDS: INSULIN ASPART PER UNIT CHARGE SC SCH ×3 (08:56→16:59)
[2022-10-25] MEDS: LANTUS PER UNIT CHARGE SQ SCH (08:57)
[2022-10-25] MEDS: FAMOTIDINE 20 MG in SYRINGE 3 ML IV SCH (08:58)
--- NOTE | 2022-10-25 11:31 | XRay Report ---
XR chest 1V portable HISTORY: 76 years-old Female s/p thoracentesis acute shortness of breath COMPARISON: 10/24/2022 TECHNIQUE: AP view of the chest FINDINGS: Cardiac silhouette is enlarged. Prior median sternotomy. Chronic interstitial coarsening. Trace pleur al effusions. Underaeration of the left lung status post thoracentesis. No postprocedural pneumothora x identified. Asymmetric left hilar prominence. Right axillary surgical clips. Degenerative changes o f the right shoulder and spine. Left shoulder arthroplasty. Chronic left rib cage skeletal deformity. IMPRESSION: 1. Markedly improved aeration of left lung status post thoracentesis. Trace residual left-sided pleur al effusion. 2. No postprocedural pneumothorax identified. ACT 112: Negative or not required by law. The above report was generated using voice recognition software. It may contain grammatical, syntax o r spelling errors. Electronically signed by: Gage Garza M.D. 10/25/2022 11:30 AM
--- NOTE | 2022-10-25 11:58 | Procedure Note ---
Procedure Note Date of Service October 25, 2022 Note Procedure: Diagnostic therapeutic ultrasound-guided catheter thoracentesis Corporate Consultant: Dr. Marilou Briggs Indication: Left pleural effusion Consent: Signed by patient and verified with timeout prior to procedure Anesthesia: 1% lidocaine without epinephrine local. Procedure: Consent was verified and timeout performed. Appropriate imaging studies were reviewed prior to the procedure. Patient was placed in a seated position and limited thoracic ultrasound was performed of the left chest. See separate imaging. Appropriate site above the diaphragm for thoracentesis was selected. The skin was prepped and draped in normal sterile fashion. Lidocaine was used for local analgesia. Fluid was aspirated via the finder needle. A small skin francia was made with the scalpel and the catheter over the needle apparatus was advanced over the rib into the pleural space. Using the syringe one-way valve system, a total of 2000 mL's of serous fluid was removed. The catheter was removed and observed to be intact. A sterile dressing was applied. Post procedure chest x-ray was ordered. Good lung sliding appreciated postprocedure on the ultrasound Fluid was sent for labs, culture and cytology. Complications: None Blood loss: None Coding CPT Codes Pulmonary/Thoracic - Pulmonary and Thoracic: 80189 Thoracentesis w imaging ([id number]) [facility] [place] Codes (Charges) Pulmonary/Thoracic Procedure 1: Pulmonary and Thoracic: 13011 Thoracentesis w imaging
[2022-10-25 12:42] LABS: Bilirubin,Total 0.5 mg/dl (0.2-1.0); Total Protein 7.4 gm/dl (6.0-8.3)
[2022-10-25 12:45] LABS: Total Protein Pleural Fluid 4.2 gm/dl
[2022-10-25 13:06] LABS: Appearance Pleural Fluid Slightly Hazy; Basophils, Fluid 1 %; Color Pleural Fluid Yellow; Lymphocytes, Fluid 74 %; Mono,Macrophage,Mesothelial 16 %; Neutrophils, Fluid 9 %; RBC Pleural Fluid Auto < 2000 /uL; Source Pleural Fluid Left Lung; WBC Pleural Fluid Auto 313 /uL
--- NOTE | 2022-10-25 16:08 | Discharge Summary ---
Date of Service October 25, 2022 Admission HPI Per Admitting Provider 76yo Female with PMH HFpEF s/p CABG, GERD, DM2, breast cancer, HTN HLD sent by PCP for concern aspiration pneumonia. Patient states she has been coughing since April, had CXR at that time trace pleural effusion. PCP ordered repeat CXR today noted white out of left lung sent patient to ED. Patient denies any SOB fever chills nausea vomitting chest pain abd pain, denies any difficulty with swallowing, denies history of stroke. Patient lives alone, her neighbor Pat comes by to check on her and help with medications. 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 TECHNIQUE: Axial computed tomographic angiography images of the chest with intravenous contrast. CTDI is 27.81 mGy and DLP is 863.15 mGy-cm. Automated exposure control was utilized for the study. A dose lowering technique was utilized adhering to the principles of ALARA. MIP reconstructed images were created and reviewed. COMPARISON: No relevant prior studies available. FINDINGS: Pulmonary arteries: Unremarkable. No pulmonary embolism. Aorta: Atherosclerotic changes of the aorta. No thoracic aortic aneurysm. Lungs: Extensive aspiration pneumonia, including extensive debris which fully occludes the LEFT mainstem bronchus and remaining bronchi. Complete atelectasis of the LEFT lung. Moderate LEFT pleural effusion. No mass. Pleural space: See above. Heart: Cardiomegaly. No significant pericardial effusion. No evidence of RV dysfunction. Bones/joints: Sternotomy wires. Degenerative changes of the spine. No acute fracture. No dislocation. Soft tissues: Unremarkable. Lymph nodes: Unremarkable. No enlarged lymph nodes. Gallbladder and bile ducts: Cholelithiasis. IMPRESSION: Extensive aspiration pneumonia, including extensive debris which fully occludes the LEFT mainstem bronchus and remaining bronchi. Complete atelectasis of the LEFT lung. Moderate LEFT pleural effusion. Electronically signed by: Candido Carrillo MD 10/23/22 21:08 PM Chest X-Ray 10/24/22 11:06 XR chest 1V portable HISTORY: Post Bronchoscopy COMPARISON: Chest 10/23/2022. FINDINGS: There is near complete opacities in the left hemithorax, unchanged. This is primarily due to the large left pleural effusion seen on the prior study. There is also consolidation/partial collapse of the left lung likely due to mucous plugging as seen on the prior study. There is a left shoulder prosthesis again noted. Prior left postthoracotomy changes and poststernotomy changes are again noted. No pneumothorax. IMPRESSION: 1. Near-complete opacification of the left hemithorax, unchanged. 2. Large left pleural effusion again noted. 3. No pneumothorax. ACT 112: Negative or not required by law. Electronically signed by: Kike Soliz M.D. 10/24/2022 12:49 PM Videofluoroscopic Swallow 10/24/22 13:00 FL video swallow HISTORY: Pneumonia. assess for aspiration TECHNIQUE: Video fluoroscopic evaluation of swallowing was performed in the AP and lateral projections by the speech pathology staff. The patient is fed nectar-thick and thin liquid barium, a barium coated wafer, and barium pudding. FLUOROSCOPY TIME: 1 minute and 43 seconds.. A cine loop was submitted. Ka,r: 13 mGy COMPARISON STUDY: None. FINDINGS: There is normal hyoid excursion and epiglottic deflection. No significant penetration or aspiration identified. Swallowing function is within normal limits. IMPRESSION: 1. No aspiration identified. 2. Please see the speech pathologist report for detailed findings and recommendations. ACT 112: Negative or not required by law. Electronically signed by: Kike Soliz M.D. 10/24/2022 1:57 PM Chest X-Ray 10/25/22 10:59 XR chest 1V portable HISTORY: 76 years-old Female s/p thoracentesis acute shortness of breath COMPARISON: 10/24/2022 TECHNIQUE: AP view of the chest FINDINGS: Cardiac silhouette is enlarged. Prior median sternotomy. Chronic interstitial coarsening. Trace pleural effusions. Underaeration of the left lung status post thoracentesis. No postprocedural pneumothorax identified. Asymmetric left hilar prominence. Right axillary surgical clips. Degenerative changes of the right shoulder and spine. Left shoulder arthroplasty. Chronic left rib cage skeletal deformity. IMPRESSION: 1. Markedly improved aeration of left lung status post thoracentesis. Trace residual left-sided pleural effusion. 2. No postprocedural pneumothorax identified. ACT 112: Negative or not required by law. The above report was generated using voice recognition software. It may contain grammatical, syntax or spelling errors. Electronically signed by: Gage Garza M.D. 10/25/2022 11:30 AM Hospital Course (1) Aspiration pneumonia: 76yo Female with PMH HFpEF s/p CABG, GERD, DM2, breast cancer, HTN HLD sent by PCP for concern aspiration pneumonia. Aspiration Pneumonia -CT chest: Extensive aspiration pneumonia, including extensive debris which fully occludes the LEFT mainstem bronchus and remaining bronchi.Complete atelectasis of the LEFT lung. Moderate LEFT pleural effusion. Pt has bronchoscopic eval, mucus and debris removed, abnormal mucosa with granulation appearance on Zosyn, transitioned to Augmentin cultures and pathology are pending, thoracentesis, transudative will need close outpt follow up for results - -speech consult no aspiration Hx. Breast cancer, treated with recurrence to lung per patient with resulatant left upper lobectomy -letrozole resumes DM2 -resume home meds HLD, HTN, HFpEF -atorvastatin, aspirin, carvedilol, lasix GERD -continue famotidine Code Status: Full (2) (HFpEF) heart failure with preserved ejection fraction: patient is a history of CABG and aortic valve replacement and heart failure preserved ejection fraction. She is euvolemic at this time although is white out of her left chest typically on aspirin atorvastatin carvedilol. 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 Call non-emergency contact if: your symptoms worsen Follow-up/Referrals: Marilou Briggs MD, [facility] [Physician] - Daisy Johnson MD [Primary Care Provider] - Diet: Carb Consistent or DM2 Addtl Attending Provider Instructions: please do not take a bath for 3 days you may shower please contact Dr Johnson for a follow up appointment please return to the ER if you feel short of breath Pending Studies at Discharge: No Stand-Alone Forms: My Synove[employer], Smoking Cessation Medications and DC Order Prescriptions: New amoxicillin-pot clavulanate 875-125 mg tablet 1 tab PO BID Qty: 10 0RF Continued aspirin 81 mg tablet,delayed release (DR/EC) 81 mg PO DAILY Qty: 30 2RF atorvastatin 80 mg tablet 80 mg PO HS Qty: 90 3RF potassium chloride 20 mEq tablet extended release 20 meq PO DAILY Qty: 120 3RF Rx Instructions: when taking furosemide letrozole 2.5 mg tablet 2.5 mg PO DAILY cholecalciferol (vitamin D3) 50 mcg (2,000 unit) capsule 2,000 units PO DAILY furosemide 20 mg tablet 20 mg PO QAM Qty: 90 3RF budesonide-formoterol [Symbicort] 80-4.5 mcg/actuation HFA aerosol inhaler 2 puff inhalation BID PRN (Reason: Allergic Symptoms) Qty: 10.2 3RF Rx Instructions: 2 puffs twice per day. Rinse mouth and spit after each use. alendronate 35 mg tablet 35 mg PO WK famotidine 40 mg tablet 40 mg PO DAILY Qty: 90 2RF metformin 1,000 mg tablet 1,000 mg PO BID Qty: 180 3RF albuterol sulfate 90 mcg/actuation HFA aerosol inhaler 1 inh inhalation QID PRN (Reason: Shortness Of Breath) Qty: 6.7 3RF fluticasone propionate [Flonase Allergy Relief] 50 mcg/actuation spray,suspension 1 spray intranasal DAILY PRN (Reason: Allergy Symptoms) Rx Instructions: administer into each nostril carvedilol 6.25 mg tablet 12.5 mg PO BID glimepiride 2 mg tablet 2 mg PO DAILY Discharge Orders: Discharge Order (Routine); Ordered 10/25/22 Ordered By: Ar Foote Admission Data Admit Date/Time: 10/23/22 21:40 Attending Provider: Ar Foote Admit Provider: Sienna Pinzon Primary Care Provider: Daisy Johnson Other Providers: Noah Child ; Marilou Briggs Coding Level of Care Code 25175 INP/OBS DISCH >30 MIN Diagnoses Aspiration pneumonia J69.0 (HFpEF) heart failure with preserved ejection fraction I50.30 Diabetes mellitus type II, controlled E11.9 History of breast cancer Z85.3
[2022-10-30 14:36] LABS: Source BA LAV LLL
== END 2022-10-25 18:49 | disposition home or self-care (01) | DRG 164 ==
LOC: ED 17:30 → 2S 21:40 → SUATTDRO 21:40 → 2S 22:57

== ENCOUNTER 2024-05-19 13:00 | Inpatient (IN) ==
--- NOTE | 2024-05-19 13:11 | History & Physical Report ---
Date of Service May 19, 2024 Assessment & Plan (1) PNA (pneumonia): Plan: 78yo F who presented to [facility] for afib rvr, sepsis, and PNA. Pt was transiently on vasopressors which were weaned. Is transferred to [facility] where she follows for most of her care for further care. On arrival she is hemodynamically stable with normal BP, rate 80s, no hypoxia, and significant clinical improvement from the prior day. She is pending re-evaluation of CHF, PT/OT/possible placement. On evaluation see significantly clinically improved at the bedside. She does have a markedly elevated troponin however this is downtrending and likely from severe demand and sepsis. She has a markedly elevated BNP without overt volume overload on clinical exam. Sepsis due to LLL pneumonia On admission to OSH patient was tachycardic, subsequently became hypotensive, tachypneic and with fever/chills and leukocytosis with suspected pneumonia as source Patient received initial sepsis resuscitation and was transiently on vasopressors at OSH. These have since been weaned Blood cultures at [facility] are pending, no growth to date Sputum culture ordered, MRSA nare pending Continue Rocephin/azithromycin Micro history reviewed no history of resistant organisms. Did have bronc positive culture for hemoptysis influenza in 2022 acute on chronic CHF, demand ischemia With history of HFpEF s/p CABG 2017 with bioprosthetic AVR placement Last EF 50-55%. 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 A-fib initially with RVR which improved post fluids. High sensitive troponin was normal at OSH. Heart healthy, low-sodium diet. Fluid restrict 1300 cc Continue aspirin 81 mg daily, atorvastatin 80 mg daily, spironolactone 25 mg daily - Patient does have history of chronic left lower effusion despite thoracentesis - On exam she is without overt crackles/rales and breathing comfortably. There is no HOWARD or JVD. Will hold on active diuresis for now, and resume lasix in the AM if BP stable. BNP ordered. Pending weight. CXR with LLL consilidation and progression of prior effusion. ?more exudative with PNA. No other effusion/edema noted. Troponin on admit 716.9. Patient remains chest pain-free. EKG does not have territorial ST/T wave changes. Patient is seen at reassessment at the bedside and again remains pain-free. Suspect that this is from demand from her recent sepsis, shock, and vasopressor requirement. Her troponin reportedly was normal initially when she first arrived to OSH but was not rechecked. 2-hour recheck is downtrending. Morning echo is pending Afib - Rate controlled - Adequate rate and BP on admisson - Continue metoprolol - Pt is not on anticoagulation Type II DM Metformin held - Basal bolus SSI - Pharmacy following for adjustments Dementia, frequent falls With acute weakness due to septic pneumonia Follows with neurology for dementia, may continue memantine Stable issues: History of breast cancer: 28 years prior, s/p surgery and chemo. No acute change in management. Dementia: Continue memantine. Patient is with some acute on chronic weakness due to her pneumonia/sepsis and CHF being managed as otherwise noted DVT PPx: Heparin SQ CODE STATUS: Full Diet: HH/DM2 Dispo: M/T Her friend Jojo is pts requested surrogate decision maker who also helps care for her and manage her medications Family Gage Alonzo Nephew [phone] Niece Rachel Benites, . Reviewed plan of care with friend Jojo and her nephew Gage by phone. No additional questions at time of call. (2) Type 2 diabetes mellitus with obesity: (3) Type 2 diabetes mellitus with chronic kidney disease: (4) CKD (chronic kidney disease) stage 3, GFR 30-59 ml/min: (5) (HFpEF) heart failure with preserved ejection fraction: History of Present Illness Primary Care Provider: Daisy Luz MD Nadia is a 78-year-old female past medical history of breast cancer, DIONTE with history of outpatient iron infusions, type II DM, CKD 3, CAD, HFpEF, GERD, UTI, hypertension who presents to [facility] was admitted for sepsis and pneumonia. Nadia is a Dr. Johnson [facility] patient and family would like to be transferred to [facility] for further care. Per Dr. Henley History of DM2, HTN, HLD, Afib, CHF Presented to 1 day ago for feber, body aches Temp 38.4, HR 130s. RR 28 on admit, sats high 90s on room air BP normotensive WBC 15. Cr 1.5. BNP 1,000. hs-trop wnl CXR: suspected CHF, PNA not exluded Tx rocephin and azithromycin for clinical PNA on superimposed CHF Overnight BP --> systolic 70s/40s, was on pressors which were weaned at 6-7am. BP 110/60s. 99% on room air since RR 21. HR 80s. Stable last 6 hours. Has peripheral 18G/20G lines. Last Vitals @ 1200hrs: RR 21, HR 89, BP 120/68, Sats 95% - Blood cultures pending, ngtd Patient recommended for transfer both due to family request as many as her home institution and lack of cardiology services at [facility] with her superimposed CHF and A-fib not on anticoagulation. Patient was accepted to medicine with need for ongoing CHF treatment, ongoing treatment for improving sepsis 2/2 pneumonia, and history of care at [facility]. Was accepted to M/T based on clinical progression last vital signs. Agree that it is best for the patient to be transferred to a facility where cardiology consultation services are available, additionally given her recent sepsis and transient need for vasopressors while she is no longer requiring these and has been normotensive for over 6 hours. Discussed with donor services coordinator that while her last vital signs clinical improvement is appropriate for medical telemetry if she has recurrent A-fib RVR, clinical decline, or recurrent hypotension would likely require escalation to either PCU or ICU level of care at that time. Per pt: Harper is seen at the bedside. Hx limited by dementia (oriented to 1940s, not oriented to place, oriented to name). Harper reports a week and a half ago she developed a cough. Did not think she felt very sick, but knows she must have been for her friend to bring her to the ER earlier. Denies chest pain, chest pressure, dyspnea. Endorses productive cough. Denies orthopnea. Denies syncope/presyncope. Collateral collected from her friend and surrogate decision maker JojoVirgil Zuniga does have a sister who has been hospitalized and is in critical care currently, per Jojo she has paperwork listing her as POA but also listing a nephew Gage Lawler as a backup. Pt stays with Pat during the day. Reports she had a cough for a few days, but yesterday seemed much more tired and confused. 'Just kind of faded out' and was too weak to even cross her legs and hands started to shake and she was cold. Harper didn't want to go to the hospital, but got more fatigued and then didnt answer and EMS was called. Had a high fever and afib RVR per EMS and was brought to [place]. Meds REviewed w/ Jojo who manages pts meds with her: Metformin 500mg BID Pepcid/Famotidine 40m Metoprolol Succinate 50mg daily MOnteleukast 10mg daily Spironolactone 25mg daily Vitamin B12 1,000mg daily Vitamin D3 1000mg daily Memantine 5mg BID Lasix 40mg HS to avoid going up the steps during the day and sleeps on the same floor as the bathroom at night Her friend Jojo is pts requested surrogate decision maker who also helps care for her and manage her medications Family Gage Alonzo Nephew [phone] Niece Rachel Benites, . Medical History: Reviewed Medications: Reviewed Surgical History: Reviewed Family history: Reviewed Allergies: Reviewed Social History: No tobacco/no etoh Code Status: Full Code per pt, does not have an advance direct in her paperwork to [place] knowledge but she will continue to look for this and update us if found. Allergies Allergy/AdvReac Type Severity Reaction Status Date / Time bee venom protein (honey bee) Allergy Severe ANAPHYLAXIS Verified 03/16/24 10:00 No Known Drug Allergies Allergy Verified 03/16/24 10:00 Home Medications Medication Instructions Recorded Confirmed Type aspirin 81 mg tablet,delayed 81 mg PO DAILY #30 tabs 12/31/18 04/01/24 Rx release cholecalciferol (vitamin D3) 50 2,000 unit PO DAILY 05/19/23 04/01/24 History mcg (2,000 unit) capsule cyanocobalamin (vitamin B-12) 1,000 mcg PO DAILY #90 caps 05/19/23 04/01/24 Rx 1,000 mcg capsule atorvastatin 80 mg tablet 80 mg PO HS #90 tabs 09/01/23 04/01/24 Rx furosemide 40 mg tablet 40 mg PO QAM #90 tabs 11/11/23 04/01/24 Rx metoprolol succinate 50 mg 50 mg PO DAILY #90 tabs 12/10/23 04/01/24 Rx tablet,extended release 24 hr montelukast 10 mg tablet 10 mg PO DAILY #90 tabs 12/16/23 04/01/24 Rx (Singulair) spironolactone 25 mg tablet 25 mg PO DAILY #90 tabs 12/22/23 04/01/24 Rx ostomy supplies (Stomahesive #28.3 grams 01/21/24 04/01/24 Rx Protective Powder) famotidine 40 mg tablet See Rx Instructions .Route 01/26/24 04/01/24 Rx .COMPLEX #90 tabs memantine 5 mg tablet 5 mg PO .COMPLEX #60 tabs 04/01/24 04/01/24 Rx metformin 500 mg tablet 500 mg PO BID #180 tabs 05/18/24 Rx Past Med/Surg History Problem List (Updated 05/19/24 @ 15:03 by Carl Page MD) PNA (pneumonia) Dementia 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 CKD (chronic kidney disease) stage 3, GFR 30-59 ml/min Tricuspid regurgitation Moderate mitral regurgitation [place] (dyspnea on exertion) Abnormal chest CT SOB (shortness of breath) (Acute) Weakness (Acute) Hypomagnesemia (Acute) Aspiration pneumonia Right lower lobe pulmonary nodule Pleural effusion, left Rib pain on right side Normal left ventricular systolic function CAD (coronary artery disease) (HFpEF) heart failure with preserved ejection fraction Mitral regurgitation Gastroesophageal reflux disease (Chronic) Squamous cell carcinoma Risk of exposure to Lyme disease UTI (urinary tract infection) Falls frequently Skin lesion of back On statin therapy due to risk of future cardiovascular event Gait instability (Chronic) Leg weakness, bilateral (Chronic) Edema Allergic rhinitis (Chronic) Antiplatelet or antithrombotic long-term use Fatigue Hypertension (Chronic) Dyslipidemia (Chronic) Medical History History of nonmelanoma skin cancer History of breast cancer Elevated troponin Breast cancer CAD (coronary artery disease) NSTEMI (non-ST elevated myocardial infarction) Surgical History History of thoracentesis History of coronary artery bypass graft History of right mastectomy History of aortic valve replacement History of back surgery History of cataract surgery Family History Mother Breast cancer Father Myocardial infarction Denies family history of Colon cancer Ovarian cancer Prostate cancer Social History Smoking Status: Never smoker Tobacco Type: Cigarettes Age Started Using Tobacco: 21; Age Quit Using Tobacco: 51; packs per day: 1; Second Hand Exposure: No; Do You Dip or Chew Tobacco: No; Hx Alcohol Use: No Hx Substance Use: No Preferred Language: Bangladeshi Communication Ability: Effective Visual Impairment: No Limitations Hearing Ability: Normal 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: No Beliefs That Will Affect Care: None marital status: Single Current Living Situation: Alone Current Living Situation Comment: Lives in apt building current occupational status: retired How many Children do You have: 0 Other Information That Helps Us Care for You: No Feels Safe at Home: Yes Safety Concerns: Feels Safe At This Time Childhood Exposure to Second-Hand Smoke: No caffeine: Yes (1 cup of coffee daily) Dental Care, Regularly: Yes Physical Activity Frequency: 1-2 Times per Week Seatbelt Use: always Sunscreen Use: No Assistive Devices: Cane and Walker Physical Exam Physical Exam: General: A&O to name only. NAD. Cooperative. HEENT: Atraumatic, normocephalic. Pulm: Diminishe din the L, but otherwise clear without wheezes/rales Symmetrical chest rise. No increased work of breathing. No respiratory distress. Cardiac: irir, +sm. Radial pulses intact and symmetrical. Abdominal: Nontender, nondistended, soft. BS present. Ext: no lower extremity edema PG Care Time/CCT Total # of Minutes Spent Total Time Spent with Patient: Total time spent is greater than 50% in coordination of care (as documented) at patient's floor/unit and/or counseling patient: Coding Level of Care Code 44264 INT INP/OBS CARE 3/75MIN Diagnoses PNA (pneumonia) J18.9 Type 2 diabetes mellitus with obesity E11.69; E66.9 Type 2 diabetes mellitus with chronic kidney disease E11.22 CKD (chronic kidney disease) stage 3, GFR 30-59 ml/min N18.30 (HFpEF) heart failure with preserved ejection fraction I50.30
--- NOTE | 2024-05-19 15:05 | XRay Report ---
XR chest 1V portable CLINICAL HISTORY: CHF, PNA COMPARISON STUDY: Chest CT dated 04/29/2024 and chest radiograph dated 12/02/2022 FINDINGS: The left pleural effusion has increased in size. There is progressive compressive atelectas is of the left lower lobe. The patchy left upper lobe infiltrate is also progressive. There is questi onable early infiltrate developing in the right upper lobe. Heart size and pulmonary vascularity abiodun sly negative. IMPRESSION: Progressive lung infiltrates and enlarging left pleural effusion with adjacent compressi ve atelectasis in the left lung base. ACT 112: Negative or not required by law. Electronically signed by: Zully Jeffery M.D. 05/19/2024 3:04 PM
[2024-05-19] MEDS ORDERED: GLUCOSE 40% GEL 15 GM TUBE PO PRN (15:06)
[2024-05-19] MEDS ORDERED: CARBOHYDRATES FOR HYPOGLYCEMIA PO PRN (15:06)
[2024-05-19] MEDS ORDERED: GLUCOSE 10 TAB/TUBE PO PRN (15:06)
[2024-05-19] MEDS ORDERED: GLUCAGON FOR INJ 1 MG VIAL SQ PRN (15:06)
[2024-05-19] MEDS ORDERED: PHARMACY GLYCEMIC MGMT CONSULT PRN (15:06)
[2024-05-19] MEDS ORDERED: DEXTROSE 50% 50 ML SYRINGE IV PRN (15:06)
[2024-05-19 15:23] LABS: Basophils # (auto) 0.03 K/uL (0.00-0.20); Basophils % (auto) 0.3 %; Eosinophils # (auto) 0.02 K/uL (0.00-0.50); Eosinophils % (auto) 0.2 %; Hematocrit (blood only) 33.5 % (37.0-47.0); Immature Granulocytes # (auto) 0.04 K/uL (0.01-0.20); Immature Granulocytes % (auto) 0.4 %; Lymphocytes # (auto) 0.67 K/uL (1.20-3.40); Lymphocytes % (auto) 5.9 %; Mean Corpuscular Hemoglobin 28.1 pg (25.0-34.0); Mean Corpuscular Hgb Conc 32.8 g/dL (32.0-36.0); Mean Corpuscular Volume 85.7 fL (80.0-100.0); Mean Platelet Volume 9.7 fL (9.4-12.4); Monocytes # (auto) 0.61 K/uL (0.11-0.59); Monocytes % (auto) 5.4 %; Neutrophils # (auto) 9.91 K/uL (1.40-6.50); Neutrophils % (auto) 87.8 %; Platelet Count 194 K/uL (130-400); RDW Coefficient of Variation 13.4 % (11.5-14.5); RDW Standard Deviation 41.9 fL (36.4-46.3); Red Blood Count 3.91 M/uL (4.20-5.40); White Blood Count 11.28 K/ul (4.8-10.8)
[2024-05-19 15:55] LABS: Troponin I High Sensitivity 716.9 pg/ml (0-14)
[2024-05-19 16:12] LABS: Alanine Aminotransferase 7 U/L (7-52); Albumin Globulin Ratio 1.1 (0.9-2); Alkaline Phosphatase 69 U/L (34-104); Anion Gap 12 (3-11); Aspartate Aminotransferase 12 U/L (13-39); BUN Creatinine Ratio 17.6 (10-20); Blood Urea Nitrogen 22 mg/dl (6-23); Calcium 9.2 mg/dl (8.6-10.3); Carbon Dioxide 27 mmol/L (21-32); Chloride 102 mmol/L (98-107); Globulin 3.5 gm/dl (2.5-4.0); Glucose 175 mg/dl (70-99(Fasting)); Magnesium 1.4 mg/dl (1.7-2.4); Potassium 3.9 mmol/L (3.5-5.1); Sodium 141 mmol/L (136-145); Total Protein 7.5 gm/dl (6.0-8.3)
[2024-05-19] MEDS: Patient's HEIGHT &/or WEIGHT Needed STA (16:35)
[2024-05-19] MEDS: INSULIN ASPART PER UNIT CHARGE SC SCH (18:19)
[2024-05-19] MEDS: MAGNESIUM SULFATE / D5W 1 GM/100 ML BAG IV ONE (19:26)
[2024-05-19] MEDS: MAGNESIUM OXIDE 400 MG TAB PO SCH (19:42)
[2024-05-19] MEDS: ATORVASTATIN 40 MG TAB PO SCH (20:45)
[2024-05-19] MEDS: ACETAMINOPHEN 325 MG TAB PO PRN (20:47)
[2024-05-19] MEDS: MEMANTINE HCL 5 MG TAB PO SCH (20:47)
[2024-05-19] MEDS: FAMOTIDINE 40 MG TABLET PO SCH (20:48)
[2024-05-19] MEDS: HEPARIN SOD 5,000 UNIT/0.5 ML VIAL SQ SCH (20:49)
[2024-05-20 06:11] LABS: Basophils # (auto) 0.02 K/uL (0.00-0.20); Basophils % (auto) 0.2 %; Hematocrit (blood only) 31.1 % (37.0-47.0); Hemoglobin 10.3 g/dl (12.0-16.0); Immature Granulocytes # (auto) 0.05 K/uL (0.01-0.20); Immature Granulocytes % (auto) 0.5 %; Lymphocytes # (auto) 0.81 K/uL (1.20-3.40); Lymphocytes % (auto) 8.3 %; Mean Corpuscular Hemoglobin 28.2 pg (25.0-34.0); Mean Corpuscular Hgb Conc 33.1 g/dL (32.0-36.0); Mean Corpuscular Volume 85.2 fL (80.0-100.0); Mean Platelet Volume 9.6 fL (9.4-12.4); Monocytes # (auto) 0.51 K/uL (0.11-0.59); Monocytes % (auto) 5.2 %; Neutrophils # (auto) 8.23 K/uL (1.40-6.50); Neutrophils % (auto) 84.8 %; Platelet Count 189 K/uL (130-400); RDW Coefficient of Variation 13.2 % (11.5-14.5); RDW Standard Deviation 41.2 fL (36.4-46.3); Red Blood Count 3.65 M/uL (4.20-5.40); White Blood Count 9.72 K/ul (4.8-10.8)
[2024-05-20 06:26] LABS: BUN Creatinine Ratio 17.1 (10-20); Calcium 8.9 mg/dl (8.6-10.3); Potassium 3.6 mmol/L (3.5-5.1)
[2024-05-20 06:44] LABS: INR 1.1 (0.9-1.1); Prothrombin Time 11.5 Seconds (9.0-12.0)
[2024-05-20] MEDS ORDERED: FUROSEMIDE 40 MG TAB PO SCH (09:00)
[2024-05-20] MEDS: LANTUS PER UNIT CHARGE SC SCH ×2 (09:26→22:13)
[2024-05-20] MEDS: ASPIRIN 81 MG ECTAB PO SCH (09:27)
[2024-05-20] MEDS: METOPROLOL SUCC 50MG EXT REL TAB PO SCH (09:27)
[2024-05-20] MEDS: SPIRONOLACTONE 25 MG TAB PO SCH (09:28)
[2024-05-20] MEDS: MONTELUKAST SODIUM 10 MG TABLET PO SCH (09:28)
--- NOTE | 2024-05-20 11:21 | Hospitalist Progress Note ---
Date of Service May 20, 2024 Assessment & Plan (1) PNA (pneumonia): Plan: 78yo F who presented to [facility] for afib rvr, sepsis, and PNA. Pt was transiently on vasopressors which were weaned. Is transferred to [facility] where she follows for most of her care for further care. On arrival she is hemodynamically stable with normal BP, rate 80s, no hypoxia, and significant clinical improvement from the prior day. She is pending re-evaluation of CHF, PT/OT/possible placement. On evaluation see significantly clinically improved at the bedside. She does have a markedly elevated troponin however this is downtrending and likely from severe demand and sepsis. She has a markedly elevated BNP without overt volume overload on clinical exam. Sepsis due to LLL pneumonia On admission to OSH patient was tachycardic, subsequently became hypotensive, tachypneic and with fever/chills and leukocytosis with suspected pneumonia as source -Mildly elevated Procalcitonin Patient received initial sepsis resuscitation and was transiently on vasopressors at OSH. These have since been weaned Blood cultures at [facility] are pending, no growth to date Sputum culture ordered, MRSA nare pending Continue Rocephin/azithromycin Acute on chronic CHF, demand ischemia With history of HFpEF s/p CABG 2017 with bioprosthetic AVR placement Last EF 50-55%. BNP of 1000 at OSH, pulmonary edema and volume overload on chest x-ray. A-fib initially with RVR which improved post fluids. . -Repeat ECHO is pending -Will continue Lasix 40mg daily -Monitor I/o, daily weights Afib - Rate controlled - Adequate rate and BP on admisson - Continue metoprolol - Pt is not on anticoagulation -Follows with Dr Amaya Type II DM Metformin held - Basal bolus SSI - Pharmacy following for adjustments Dementia, frequent falls With acute weakness due to septic pneumonia Follows with neurology for dementia, may continue memantine Stable issues: History of breast cancer: 28 years prior, s/p surgery and chemo. No acute change in management. Dementia: Continue memantine. DVT PPx: Heparin SQ CODE STATUS: Full Diet: HH/DM2 Dispo: M/T Her friend Jojo is pts requested surrogate decision maker who also helps care for her and manage her medications Family Gage Alonzo Nephew [phone] Niece Rachel Benites, . (2) Type 2 diabetes mellitus with obesity: (3) Type 2 diabetes mellitus with chronic kidney disease: (4) CKD (chronic kidney disease) stage 3, GFR 30-59 ml/min: (5) (HFpEF) heart failure with preserved ejection fraction: Admission and Anticipated Discharge Date Admission Date: May 20, 2024 Subjective patient seen and examined, feels better this morning Review of Systems Review of Systems: All systems reviewed are negative, apart from the ones contained in the history. Physical Exam Physical Exam: The patient is awake, alert and oriented 3, well developed and well nourished, normocephalic and atraumatic, lying in bed and in no acute distress. HEENT--PERRL, EOMI, mucous membranes and oropharynx mildly dry Neck--supple. No JVD. No bruits. Thyroid normal, trachea midline, no adenopathy. Heart--normal S1 and S2. No murmurs, rubs or gallops. Lungs--clear bilaterally, no respiratory distress, no accessory muscle use. Abdomen--normal bowel sounds and soft. Extremities--no cyanosis or clubbing. No edema. Dermatologic--normal skin turgor, normal color, no abnormal lymph nodes, no rash. Neurologic--cranial nerves II through XII grossly intact. Rheumatologic--normal range of motion. Psychiatric--normal affect. Results & Data Results & Data Vital Signs (Past 12 Hours) Vital Signs Temp Pulse Pulse Resp BP Pulse Ox O2 Del Method 05/20/24 10:44 Room Air 05/20/24 07:46 97.5 F L 85 18 111/69 94 Room Air 05/20/24 07:19 86 05/20/24 02:20 97.9 F 88 18 101/60 94 Room Air 05/20/24 00:25 83 PG Care Time/CCT Total # of Minutes Spent Total Time Spent with Patient: Total time spent is greater than 50% in coordination of care (as documented) at patient's floor/unit and/or counseling patient: Coding Level of Care Code 92863 SUB INP/OBS CARE 2/35MIN Diagnoses PNA (pneumonia) J18.9 Type 2 diabetes mellitus with obesity E11.69; E66.9 Type 2 diabetes mellitus with chronic kidney disease E11.22 CKD (chronic kidney disease) stage 3, GFR 30-59 ml/min N18.30 (HFpEF) heart failure with preserved ejection fraction I50.30 Time Spent (min) 35
[2024-05-20] MEDS ORDERED: PNEUMOCOCCAL VACCINE (PCV20) 20-VAL CONJ-DIP CRM/PF 0.5 ML SYR IM ONE (12:00)
[2024-05-20] MEDS: cefTRIAXone SODIUM 2,000 MG/50 ML BAG IV SCH (12:27)
[2024-05-20] MEDS: AZITHROMYCIN 250 MG TAB PO SCH (12:27)
--- NOTE | 2024-05-20 13:56 | XCELERA ---
[id number]
--- NOTE | 2024-05-20 14:28 | Electrocardiogram Report ---
Test Reason : Blood Pressure : */* mmHG Vent. Rate : 86 BPM Atrial Rate : 86 BPM P-R Int : 186 ms QRS Dur : 102 ms QT Int : 400 ms P-R-T Axes : 59 37 72 degrees QTcB Int : 478 ms Normal sinus rhythm Nonspecific ST and T wave abnormality Prolonged QT Abnormal ECG When compared with ECG of 01-Apr-2024 11:52, Premature ventricular complexes are no longer Present Confirmed by Salbador Mackay ([id number]) on 05/20/2024 2:28:18 PM Referred By: David Henley Confirmed By: Salbador Mackay
--- NOTE | 2024-05-20 15:15 | Pharmacy Report ---
Pharmacy Glycemic Short Note 2 - Date of Service May 20, 2024 - Glycemic Short BSG Results (Last 24 hours): 05/19/24 05/19/24 05/19/24 14:55 16:11 17:09 Glucose 175 H POC Glucose 237 H 210 H 05/19/24 05/20/24 05/20/24 19:51 05:39 08:12 Glucose 154 H POC Glucose 222 H 172 H 05/20/24 12:04 Glucose POC Glucose 196 H OUTPATIENT ANTIDIABETIC REGIMEN: * Metformin 500mg PO BID * HbA1c: pending ASSESSMENT: * Ms Ramirez is a 78yo diabetic F admitted with pna. * Pt was hyperglycemic on admission. Metformin held and SQ basal/bolus insulin regimen initiated. * Pharmacy will continue to monitor and adjust regimen as indicated. PLAN FOR INPATIENT GLYCEMIC CONTROL: * Hold outpatient oral diabetes medications * Basal insulin * Lantus 10 units SQ qAM * Lantus 0-10 units SQ qPM, based on BSG (see EMR for details) * Bolus insulin * NovoLog per scale ACHS or Q6hrs while NPO * Goal Range: Low 110 mg/dL - High 140 mg/dL * Correction Factor: 30 mg/dL/unit * Nutritional / Prandial insulin per carb ratio of 1 unit per 10 grams CHO consumed
[2024-05-21 06:46] LABS: Basophils # (auto) 0.03 K/uL (0.00-0.20); Basophils % (auto) 0.3 %; Eosinophils # (auto) 0.18 K/uL (0.00-0.50); Hemoglobin 10.2 g/dl (12.0-16.0); Immature Granulocytes # (auto) 0.03 K/uL (0.01-0.20); Immature Granulocytes % (auto) 0.3 %; Lymphocytes # (auto) 0.85 K/uL (1.20-3.40); Lymphocytes % (auto) 9.3 %; Mean Corpuscular Hemoglobin 28.1 pg (25.0-34.0); Mean Corpuscular Hgb Conc 32.9 g/dL (32.0-36.0); Mean Corpuscular Volume 85.4 fL (80.0-100.0); Mean Platelet Volume 9.7 fL (9.4-12.4); Monocytes % (auto) 6.6 %; Neutrophils # (auto) 7.45 K/uL (1.40-6.50); Neutrophils % (auto) 81.5 %; Platelet Count 201 K/uL (130-400); RDW Coefficient of Variation 13.1 % (11.5-14.5); RDW Standard Deviation 40.9 fL (36.4-46.3); Red Blood Count 3.63 M/uL (4.20-5.40); White Blood Count 9.14 K/ul (4.8-10.8)
--- NOTE | 2024-05-21 06:53 | Hospitalist Progress Note ---
Date of Service May 21, 2024 Assessment & Plan (1) PNA (pneumonia): Plan: Pt is a 78 yo female who presented to [facility] for afib w/ rvr and sepsis secondary to PNA. Pt was transiently on vasopressors which were weaned successfully. Pt was then transferred to [facility] for further care. On arrival she was hemodynamically stable with normal BP, rate 80s, no hypoxia, and significant clinical improvement from the prior day. She has continued to be clinically st able/improving. She is now pending rehab placement. Sepsis due to LLL pneumonia - on admission to OSH patient was tachycardic, subsequently became hypotensive, tachypneic and with fever/chills and leukocytosis with suspected pneumonia as source - on admission here, pt's vitals much improved; leukocytosis to 11.28, mildly elevated procal - s/p initial sepsis resuscitation and was transiently on vasopressors at OSH - blood cx at [facility] show no growth to date - sputum culture ordered (but not collected), MRSA nares negative - continue rocephin/azithromycin (day 2) Acute on chronic CHF, demand ischemia - pt with hx of HFpEF s/p CABG 2017 with bioprosthetic AVR placement - BNP of 1000 at OSH (1700 here), pulmonary edema and volume overload on chest x-ray; afib initially with RVR which improved post fluids - echo showed no significant changes from prior; EF 50-55%, grade 2 diastolic dysfunction - trop peaked at 716 - continue lasix 40mg PO daily - monitor I/Os and daily weights Afib - originally with RVR as above; now rate controlled - continue metoprolol - not on anticoagulation - follows with Dr Amaya Type II DM - A1c pending - metformin held; basal bolus w/ SSI - pharmacy following for adjustments Dementia, frequent falls - with acute weakness due to septic pneumonia - follows with neurology for dementia, may continue memantine Stable issues: History of breast cancer: 28 years prior, s/p surgery and chemo. No acute change in management. Diet; heart healthy, carb consistent VTE ppx: heparin SQ Code: full Dispo: med/tele; pending SNF rehab Her friend Jojo is pt's requested surrogate decision maker who also helps care for her and manage her medications. Family Gage Alonzo Nephew [phone] Niece Rachel Benites, (2) Type 2 diabetes mellitus with chronic kidney disease: (3) Weakness: (4) (HFpEF) heart failure with preserved ejection fraction: (5) Atrial fibrillation: Admission and Anticipated Discharge Date Admission Date: May 20, 2024 Supervising Physician Co-Signing Physician Notes I personally examined the patient and verified all brownlee points of history and exam, discussed case, and agree with decision making with Dr Akira Molina. Pending placement. Allowed patient to rest. Vitals noted, in general she is awake and alert pleasant no distress. HEENT normocephalic atraumatic. Breathing unlabored at rest on room air. No appearance of respiratory distress. Pneumoniafinish course of antibiotics. Appears to be stable in this regard deconditioning/weaknessrequiring SNF/rehab, pending placement. DVT prophylaxisheparin subcu otherwise as above Subjective Pt continuing to improve- sitting in chair at bedside this AM. Notes continued weakness and overall fatigue. She is wondering how long it will take for recovery from PNA. Otherwise, no new concerns. Review of Systems Review of Systems: As per HPI Physical Exam Physical Exam: Constitutional: well appearing, no acute distress HEENT: normocephalic, no conjunctival injection CV: RRR, 2/6 systolic murmur noted, no LE edema Respiratory: Rhonchi heard in RLL, no wheezes, or crackles. No increased work of breathing MSK: no gross deformities noted Skin: warm, dry, no rashes Neuro: alert, oriented, no FND noted Psych: mood and affect congruent Results & Data Results & Data Vital Signs (Past 12 Hours) Vital Signs Temp Pulse Pulse Resp BP Pulse Ox O2 Del Method 05/21/24 03:57 37.1 C 79 16 109/66 95 Room Air 05/20/24 23:19 36.9 C 81 16 117/69 95 Room Air 05/20/24 21:57 78 05/20/24 20:01 37.1 C 82 16 112/67 96 Room Air Resident Activity Tracking Resident Involvement: Resident Care Provided Care Provided: Adult Hospital Medicine
[2024-05-21 07:05] LABS: BUN Creatinine Ratio 19.7 (10-20); Calcium 8.9 mg/dl (8.6-10.3); Creatinine Clr Calc Pharmacy 31.4 ml/min; Potassium 3.6 mmol/L (3.5-5.1)
[2024-05-21] MEDS: FUROSEMIDE 40 MG TAB PO SCH (07:50)
--- NOTE | 2024-05-21 14:32 | Billing Data ---
Date of Service May 21, 2024 Coding Level of Care Code 55080 SUB INP/OBS CARE
[2024-05-22 06:30] LABS: Basophils # (auto) 0.03 K/uL (0.00-0.20); Basophils % (auto) 0.4 %; Eosinophils % (auto) 2.5 %; Hematocrit (blood only) 30.5 % (37.0-47.0); Hemoglobin 9.9 g/dl (12.0-16.0); Immature Granulocytes # (auto) 0.05 K/uL (0.01-0.20); Immature Granulocytes % (auto) 0.6 %; Lymphocytes % (auto) 10.2 %; Mean Corpuscular Hgb Conc 32.5 g/dL (32.0-36.0); Mean Corpuscular Volume 86.2 fL (80.0-100.0); Mean Platelet Volume 9.6 fL (9.4-12.4); Monocytes # (auto) 0.58 K/uL (0.11-0.59); Monocytes % (auto) 7.4 %; Neutrophils # (auto) 6.19 K/uL (1.40-6.50); Neutrophils % (auto) 78.9 %; Platelet Count 217 K/uL (130-400); RDW Coefficient of Variation 13.1 % (11.5-14.5); RDW Standard Deviation 40.7 fL (36.4-46.3); Red Blood Count 3.54 M/uL (4.20-5.40); White Blood Count 7.85 K/ul (4.8-10.8)
[2024-05-22 06:54] LABS: BUN Creatinine Ratio 26.1 (10-20); Calcium 8.9 mg/dl (8.6-10.3); Creatinine Clr Calc Pharmacy 35.7 ml/min; Potassium 3.8 mmol/L (3.5-5.1)
--- NOTE | 2024-05-22 07:31 | Hospitalist Progress Note ---
Date of Service May 22, 2024 Assessment & Plan (1) PNA (pneumonia): Plan: Pt is a 78 yo female who presented to [facility] for afib w/ rvr and sepsis secondary to PNA. Pt was transiently on vasopressors which were weaned successfully. Pt was then transferred to [facility] for further care. On arrival she was hemodynamically stable with normal BP, rate 80s, no hypoxia, and significant clinical improvement from the prior day. She has continued to be clinically st able/improving. She is now pending rehab placement. Sepsis due to LLL pneumonia - on admission to OSH patient was tachycardic, subsequently became hypotensive, tachypneic and with fever/chills and leukocytosis with suspected pneumonia as source - on admission here, pt's vitals much improved; leukocytosis to 11.28, mildly elevated procal - s/p initial sepsis resuscitation and was transiently on vasopressors at OSH - blood cx at [facility] show no growth to date - MRSA nares negative - s/p rocephin x2 days- transition to PO cefdinir 300mg BID- would continue for a total of 7-10 days; completed 3 day course of 500mg azithromycin 05/22 Acute on chronic CHF, demand ischemia - pt with hx of HFpEF s/p CABG 2016 with bioprosthetic AVR placement - BNP of 1000 at OSH (1700 here), pulmonary edema and volume overload on chest x-ray; afib initially with RVR which improved post fluids - echo showed no significant changes from prior; EF 50-55%, grade 2 diastolic dysfunction - trop peaked at 716 - continue lasix 40mg PO daily - monitor I/Os and daily weights Afib - originally with RVR as above; now rate controlled - continue metoprolol - not on anticoagulation - follows with Dr Amaya Type II DM - A1c pending - metformin held; basal bolus w/ SSI - pharmacy following for adjustments Dementia, frequent falls - with acute weakness due to septic pneumonia - follows with neurology for dementia, may continue memantine Stable issues: History of breast cancer: 28 years prior, s/p surgery and chemo. No acute change in management Diet; heart healthy, carb consistent VTE ppx: heparin SQ Code: full Dispo: med/tele; pending SNF rehab- per pt, should would like to go home but would like to discuss her rehab options more thoroughly so she knows what is available Her friend Jojo is pt's requested surrogate decision maker who also helps care for her and manage her medications. 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 awaiting placement. Vitals noted, in general she is awake and alert pleasant no distress. HEENT normocephalic atraumatic. Breathing unlabored at rest on room air. No appearance of respiratory distress. Pneumoniafinish course of antibiotics (switched to PO today). Appears to be stable in this regard deconditioning/weaknessrequiring SNF/rehab, pending placement. DVT prophylaxisheparin subcu otherwise as above Subjective Pt notes no changes this morning. Overall, feeling improved but not back to baseline. Review of Systems Review of Systems: As per HPI Physical Exam Physical Exam: Constitutional: well appearing, no acute distress HEENT: normocephalic, no conjunctival injection CV: RRR, 2/6 systolic murmur, no LE edema Respiratory: Rhonchi in RUL/RLL, no wheezes or crackles. No increased work of breathing MSK: no gross deformities noted Skin: warm, dry, no rashes Neuro: alert, oriented, no FND noted Psych: mood and affect congruent Results & Data Results & Data Vital Signs (Past 12 Hours) Vital Signs Temp Pulse Pulse Resp BP Pulse Ox O2 Del Method 05/22/24 07:27 36.8 C 62 18 114/65 96 Room Air 05/22/24 07:10 72 05/22/24 03:37 37 C 79 16 133/83 99 Room Air 05/21/24 23:14 36.9 C 79 18 110/66 97 Room Air 05/21/24 21:53 83 05/21/24 19:48 Room Air 05/21/24 19:39 37 C 79 18 111/64 96 Room Air Resident Activity Tracking Resident Involvement: Resident Care Provided Care Provided: Adult Hospital Medicine
[2024-05-22] MEDS: CEFDINIR 300 MG CAP PO SCH (10:17)
--- NOTE | 2024-05-22 13:37 | Billing Data ---
Date of Service May 22, 2024 Coding Level of Care Code 22785 SUB INP/OBS CARE
--- NOTE | 2024-05-22 23:53 | XRay Report ---
Exam(s): XR RIGHT KNEE, 1-2 views EXAM: XR Right Knee, 1 or 2 Views CLINICAL HISTORY: Reason for exam: Fall. TECHNIQUE: Frontal and/or lateral views of the right knee. COMPARISON: No relevant prior studies available. FINDINGS: Bones/joints: Chondrocalcinosis of the menisci. No joint effusion. No fracture or dislocation. Osteopenia. Soft tissues: Unremarkable. Vasculature: Vascular calcification. IMPRESSION: No acute findings in the right knee. Electronically signed by: Elizabeth Chakraborty M.D. 05/22/24 23:53 PM
[2024-05-23 08:38] LABS: Hematocrit (blood only) 31.2 % (37.0-47.0); Mean Corpuscular Hemoglobin 27.6 pg (25.0-34.0); Mean Corpuscular Hgb Conc 32.1 g/dL (32.0-36.0); Mean Corpuscular Volume 86.2 fL (80.0-100.0); Mean Platelet Volume 9.4 fL (9.4-12.4); Platelet Count 234 K/uL (130-400); RDW Coefficient of Variation 13.2 % (11.5-14.5); RDW Standard Deviation 41.5 fL (36.4-46.3); Red Blood Count 3.62 M/uL (4.20-5.40); White Blood Count 9.31 K/ul (4.8-10.8)
[2024-05-23 08:48] LABS: BUN Creatinine Ratio 21.9 (10-20); Calcium 9.3 mg/dl (8.6-10.3); Creatinine Clr Calc Pharmacy 34.8 ml/min; Potassium 4.1 mmol/L (3.5-5.1)
--- NOTE | 2024-05-23 13:13 | Hospitalist Progress Note ---
Date of Service May 23, 2024 Assessment & Plan (1) PNA (pneumonia): Plan: Pt is a 78 yo female who presented to [facility] for afib w/ rvr and sepsis secondary to PNA. Pt was transiently on vasopressors which were weaned successfully. Pt was then transferred to [facility] for further care. On arrival she was hemodynamically stable with normal BP, rate 80s, no hypoxia, and significant clinical improvement from the prior day. She has continued to be clinically st able/improving. She is now pending rehab placement. Pending placement Sepsis due to LLL pneumonia - on admission to OSH patient was tachycardic, subsequently became hypotensive, tachypneic and with fever/chills and leukocytosis with suspected pneumonia as source - on admission here, pt's vitals much improved; leukocytosis to 11.28, mildly elevated procal - s/p initial sepsis resuscitation and was transiently on vasopressors at OSH - blood cx at [facility] show no growth to date - MRSA nares negative - s/p rocephin x2 days- transition to PO cefdinir 300mg BID- would continue for a total of 7-10 days; completed 3 day course of 500mg azithromycin 05/22 Acute on chronic CHF, demand ischemia - pt with hx of HFpEF s/p CABG 2016 with bioprosthetic AVR placement - BNP of 1000 at OSH (1700 here), pulmonary edema and volume overload on chest x-ray; afib initially with RVR which improved post fluids - echo showed no significant changes from prior; EF 50-55%, grade 2 diastolic dysfunction - trop peaked at 716 - continue lasix 40mg PO daily - monitor I/Os and daily weights Afib - originally with RVR as above; now rate controlled - continue metoprolol - not on anticoagulation - follows with Dr Amaya Type II DM - A1c pending - metformin held; basal bolus w/ SSI - pharmacy following for adjustments Dementia, frequent falls - with acute weakness due to septic pneumonia - follows with neurology for dementia, may continue memantine Stable issues: History of breast cancer: 28 years prior, s/p surgery and chemo. No acute change in management Diet; heart healthy, carb consistent VTE ppx: heparin SQ Code: full Dispo: med/tele; pending SNF rehab- per pt, should would like to go home but would like to discuss her rehab options more thoroughly so she knows what is available Her friend Jojo is pt's requested surrogate decision maker who also helps care for her and manage her medications. 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 I agree with the impression and plan as noted in the resident documentation above. She has no complaints this morning. She is open to the idea of a short-term rehab, but would like it to be close to either to [place] or [place] based on where she lives. Case management is working on this. Switch to p.o. antibiotics yesterday, tolerating. Impression and plan Pneumoniafinish course of antibiotics (switched to PO today). Appears to be stable in this regard Deconditioning/weaknessrequiring SNF/rehab, pending placement. DVT prophylaxisheparin sc additional per resident documentation Subjective Patient seen and evaluated at bedside this morning. No acute events overnight. Overall continues to improve. Seems agreeable to some degree of rehab. She is from [facility] and would want placement closer to home. Review of Systems Review of Systems: reviewed, per HPI Physical Exam Physical Exam: Constitutional: age appropriate, no acute distress HEENT: NCAT, no conjunctival injection CV: well perfused Resp: no increased work of breathing GI: nondistended MSK: no gross deformities appreciated Skin: warm, dry, no rash appreciated Neuro: alert, oriented, no focal neurologic deficit appreciated Results & Data Results & Data Vital Signs (Past 12 Hours) Vital Signs Temp Pulse Pulse Resp BP Pulse Ox O2 Del Method 05/23/24 11:11 36.5 C 87 20 116/69 98 Room Air 05/23/24 08:00 Room Air 05/23/24 07:52 36.8 C 72 18 130/68 95 Room Air 05/23/24 07:29 70 05/23/24 03:47 36.3 C L 68 18 112/60 96 Room Air 05/23/24 01:18 Room Air 05/23/24 01:17 76 Resident Activity Tracking Resident Involvement: Resident Care Provided Care Provided: Adult Hospital Medicine
[2024-05-24 08:38] LABS: Hematocrit (blood only) 30.1 % (37.0-47.0); Mean Corpuscular Hemoglobin 28.7 pg (25.0-34.0); Mean Corpuscular Hgb Conc 33.2 g/dL (32.0-36.0); Mean Corpuscular Volume 86.2 fL (80.0-100.0); Mean Platelet Volume 9.5 fL (9.4-12.4); Platelet Count 242 K/uL (130-400); RDW Coefficient of Variation 13.2 % (11.5-14.5); RDW Standard Deviation 41.4 fL (36.4-46.3); Red Blood Count 3.49 M/uL (4.20-5.40); White Blood Count 8.76 K/ul (4.8-10.8)
[2024-05-24 08:44] LABS: BUN Creatinine Ratio 20.3 (10-20); Calcium 9.2 mg/dl (8.6-10.3); Creatinine Clr Calc Pharmacy 38.4 ml/min; Potassium 4.1 mmol/L (3.5-5.1)
[2024-05-24] MEDS: LANTUS PER UNIT CHARGE SC SCH (09:18)
[2024-05-24 11:05] LABS: Estimated Average Glucose 163 mg/dl; Hemoglobin A1C 7.3 % (4.5-5.6)
--- NOTE | 2024-05-24 11:38 | Pharmacy Report ---
Pharmacy Glycemic Short Note 2 - Date of Service May 24, 2024 - Glycemic Short BSG Results (Last 24 hours): 05/23/24 05/23/24 05/23/24 12:03 17:09 20:36 Glucose POC Glucose 147 H 102 H 190 H 05/24/24 05/24/24 07:33 07:53 Glucose 99 POC Glucose 103 H OUTPATIENT ANTIDIABETIC REGIMEN: * Metformin 500mg PO BID * HbA1c: 7/3% (05/20/24) ASSESSMENT: 05/24 * Nadia received 29 units of insulin yesterday (10 were basal) * Fasting BSG trending down the past few days, will decrease basal by 20% * Carbohydrate ratio tightened as BSGs trend up throughout the day 05/20 * Ms Ramirez is a 78yo diabetic F admitted with pna. * Pt was hyperglycemic on admission. Metformin held and SQ basal/bolus insulin regimen initiated. * Pharmacy will continue to monitor and adjust regimen as indicated. PLAN FOR INPATIENT GLYCEMIC CONTROL: * Hold outpatient oral diabetes medications * Basal insulin * Lantus 8 units SQ qAM * Bolus insulin * NovoLog per scale ACHS or Q6hrs while NPO * Goal Range: Low 110 mg/dL - High 140 mg/dL * Correction Factor: 25 mg/dL/unit * Nutritional / Prandial insulin per carb ratio of 1 unit per 7 grams CHO consumed
--- NOTE | 2024-05-24 12:44 | Hospitalist Progress Note ---
Date of Service May 24, 2024 Assessment & Plan (1) PNA (pneumonia): Plan: Pt is a 78 yo female who presented to [facility] for afib w/ rvr and sepsis secondary to PNA. Pt was transiently on vasopressors which were weaned successfully. Pt was then transferred to [facility] for further care. On arrival she was hemodynamically stable with normal BP, rate 80s, no hypoxia, and significant clinical improvement from the prior day. She has continued to be clinically st able/improving. She is now pending rehab placement. Pending placement Sepsis due to LLL pneumonia - on admission to OSH patient was tachycardic, subsequently became hypotensive, tachypneic and with fever/chills and leukocytosis with suspected pneumonia as source - on admission here, pt's vitals much improved; leukocytosis to 11.28, mildly elevated procal - s/p initial sepsis resuscitation and was transiently on vasopressors at OSH - blood cx at [facility] show no growth to date - MRSA nares negative - s/p rocephin x2 days- transition to PO cefdinir 300mg BID- would continue for a total of 7-10 days; completed 3 day course of 500mg azithromycin 05/22 Acute on chronic CHF, demand ischemia - pt with hx of HFpEF s/p CABG 2016 with bioprosthetic AVR placement - BNP of 1000 at OSH (1700 here), pulmonary edema and volume overload on chest x-ray; afib initially with RVR which improved post fluids - echo showed no significant changes from prior; EF 50-55%, grade 2 diastolic dysfunction - trop peaked at 716 - continue lasix 40mg PO daily - monitor I/Os and daily weights Afib - originally with RVR as above; now rate controlled - continue metoprolol - not on anticoagulation - follows with Dr Amaya Type II DM - A1c pending - metformin held; basal bolus w/ SSI - pharmacy following for adjustments Dementia, frequent falls - with acute weakness due to septic pneumonia - follows with neurology for dementia, may continue memantine Stable issues: History of breast cancer: 28 years prior, s/p surgery and chemo. No acute change in management Diet; heart healthy, carb consistent VTE ppx: heparin SQ Code: full Dispo: med/tele; pending SNF rehab- per pt, should would like to go home but would like to discuss her rehab options more thoroughly so she knows what is available Her friend Jojo is pt's requested surrogate decision maker who also helps care for her and manage her medications. 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 Lynne. In agreement with the documented findings as noted in the resident documentation with any exceptions or additions as noted here. No acute complaint at time of evaluation. On examination, S1/S2 nl RRR no MCG. CTAB. Abd NT/ND BS+ve. Pneumonia - complete course of cefdinir as noted. Deconditioning - PT/OT consult - dispo planning. Else see resident documentation as noted. Subjective Patient seen and evaluated at bedside this morning. No acute events overnight. Anticipating discharge to [facility] for rehab Review of Systems Review of Systems: reviewed, per HPI Physical Exam Physical Exam: Constitutional: age appropriate, no acute distress HEENT: NCAT, no conjunctival injection CV: well perfused Resp: no increased work of breathing GI: nondistended MSK: no gross deformities appreciated Skin: warm, dry, no rash appreciated Neuro: alert, oriented, no focal neurologic deficit appreciated Results & Data Results & Data Vital Signs (Past 12 Hours) Vital Signs Temp Pulse Pulse Resp BP Pulse Ox O2 Del Method 05/24/24 11:54 36.7 C 69 18 104/63 96 Room Air 05/24/24 08:00 Room Air 05/24/24 07:29 75 05/24/24 07:29 36.6 C 75 18 114/68 95 Room Air 05/24/24 03:39 36.3 C L 78 20 113/74 96 Room Air Resident Activity Tracking Resident Involvement: Resident Care Provided Care Provided: Adult Hospital Medicine
[2024-05-25 07:25] VITALS: RESP 18
--- NOTE | 2024-05-25 11:00 | Discharge Summary ---
Date of Service May 25, 2024 Admission HPI Per Admitting Provider Nadia is a 78-year-old female past medical history of breast cancer, DIONTE with history of outpatient iron infusions, type II DM, CKD 3, CAD, HFpEF, GERD, UTI, hypertension who presents to [facility] [address] was admitted for sepsis and pneumonia. Nadia is a [facility] patient and family would like to be transferred to [facility] for further care. Per Dr. Henley History of DM2, HTN, HLD, Afib, CHF Presented to 1 day ago for feber, body aches Temp 38.4, HR 130s. RR 28 on admit, sats high 90s on room air BP normotensive WBC 15. Cr 1.5. BNP 1,000. hs-trop wnl CXR: suspected CHF, PNA not exluded Tx rocephin and azithromycin for clinical PNA on superimposed CHF Overnight BP --> systolic 70s/40s, was on pressors which were weaned at 6-7am. BP 110/60s. 99% on room air since RR 21. HR 80s. Stable last 6 hours. Has peripheral 18G/20G lines. Last Vitals @ 1200hrs: RR 21, HR 89, BP 120/68, Sats 95% - Blood cultures pending, ngtd Patient recommended for transfer both due to family request as many as her home institution and lack of cardiology services at [facility] with her superimposed CHF and A-fib not on anticoagulation. Patient was accepted to medicine with need for ongoing CHF treatment, ongoing treatment for improving sepsis 2/2 pneumonia, and history of care at [facility]. Was accepted to M/T based on clinical progression last vital signs. Agree that it is best for the patient to be transferred to a facility where cardiology consultation services are available, additionally given her recent sepsis and transient need for vasopressors while she is no longer requiring thes e and has been normotensive for over 6 hours. Discussed with house coordinator that while her last vital signs clinical improvement is appropriate for medical telemetry if she has recurrent A-fib RVR, clinical decline, or recurrent hypotension would likely require escalation to either PCU or ICU level of care at that time. Per pt: Harper is seen at the bedside. Hx limited by dementia (oriented to 1940s, not oriented to place, oriented to name). Harper reports a week and a half ago she developed a cough. Did not think she felt very sick, but knows she must have been for her friend to bring her to the ER earlier. Denies chest pain, chest pressure, dyspnea. Endorses productive cough. Denies orthopnea. Denies syncope/presyncope. Collateral collected from her friend and surrogate decision maker Jojo. Nadia does have a sister who has been hospitalized and is in critical care currently, per Pat she has paperwork listing her as POA but also listing a nephew Gage Lawler as a backup. Pt stays with Pat during the day. Reports she had a cough for a few days, but yesterday seemed much more tired and confused. 'Just kind of faded out' and was too weak to even cross her legs and hands started to shake and she was cold. Harper didn't want to go to the hospital, but got more fatigued and then didnt answer and EMS was called. Had a high fever and afib RVR per EMS and was brought to [place]. Meds REviewed w/ Pat who manages pts meds with her: Metformin 500mg BID Pepcid/Famotidine 40m Metoprolol Succinate 50mg daily MOnteleukast 10mg daily Spironolactone 25mg daily Vitamin B12 1,000mg daily Vitamin D3 1000mg daily Memantine 5mg BID Lasix 40mg HS to avoid going up the steps during the day and sleeps on the same floor as the bathroom at night Her friend Jojo is pts requested surrogate decision maker who also helps care for her and manage her medications Family Gage Alonzo Nephew [phone] Niece Rachel Benites, . Medical History: Reviewed Medications: Reviewed Surgical History: Reviewed Family history: Reviewed Allergies: Reviewed Social History: No tobacco/no etoh Code Status: Full Code per pt, does not have an advance direct in her paperwork to [facility] knowledge but she will continue to look for this and update us if found. Principal Diagnosis Pneumonia Discharge Exam Constitutional: age appropriate, no acute distress HEENT: NCAT, no conjunctival injection CV: well perfused Resp: no increased work of breathing GI: nondistended MSK: no gross deformities appreciated Skin: warm, dry, no rash appreciated Neuro: alert, oriented, no focal neurologic deficit appreciated Discharge Data Allergies Allergy/AdvReac Type Severity Reaction Status Date / Time bee venom protein (honey bee) Allergy Severe ANAPHYLAXIS Verified 03/16/24 10:00 No Known Drug Allergies Allergy Verified 03/16/24 10:00 Hospital Course (1) PNA (pneumonia): Pt is a 78 yo female who presented to [facility] for afib w/ rvr and sepsis secondary to PNA. Pt was transiently on vasopressors which were weaned successfully. Pt was then transferred to [facility] for further care. On arrival she was hemodynamically stable with normal BP, rate 80s, no hypoxia, and significant clinical improvement from the prior day. She has continued to be clinically stable/improving. She is now pending rehab placement. Pending placement Sepsis due to LLL pneumonia - on admission to OSH patient was tachycardic, subsequently became hypotensive, tachypneic and with fever/chills and leukocytosis with suspected pneumonia as s ource - on admission here, pt's vitals much improved; leukocytosis to 11.28, mildly elevated procal - s/p initial sepsis resuscitation and was transiently on vasopressors at OSH - blood cx at [facility] show no growth to date - MRSA nares negative - s/p rocephin x2 days- transition to PO cefdinir 300mg BID- would continue for a total of 7-10 days; completed 3 day course of 500mg azithromycin 05/22 Acute on chronic CHF, demand ischemia - pt with hx of HFpEF s/p CABG 2016 with bioprosthetic AVR placement - BNP of 1000 at OSH (1700 here), pulmonary edema and volume overload on chest x-ray; afib initially with RVR which improved post fluids - echo showed no significant changes from prior; EF 50-55%, grade 2 diastolic dysfunction - trop peaked at 716 - continue lasix 40mg PO daily - monitor I/Os and daily weights Afib - originally with RVR as above; now rate controlled - continue metoprolol - not on anticoagulation - follows with Dr Amaya Type II DM - A1c pending - metformin held; basal bolus w/ SSI - pharmacy following for adjustments Dementia, frequent falls - with acute weakness due to septic pneumonia - follows with neurology for dementia, may continue memantine Stable issues: History of breast cancer: 28 years prior, s/p surgery and chemo. No acute change in management Diet; heart healthy, carb consistent VTE ppx: heparin SQ Code: full Dispo: med/tele; pending SNF rehab- per pt, should would like to go home but would like to discuss her rehab options more thoroughly so she knows what is available Her friend Jojo is pt's requested surrogate decision maker who also helps care for her and manage her medications. Family: Nephew Gage Alonzo [phone]; Niece Rachel Benites, (2) Type 2 diabetes mellitus with chronic kidney disease: (3) Weakness: (4) (HFpEF) heart failure with preserved ejection fraction: (5) Atrial fibrillation: Total Time Total Time Spent Total Time Spent (In Minutes): I personally spent 20 minutes seeing the patient and completing documentation. FJB Discharge Plan Discharge Items Patient Disposition: Transfer Inpatient Rehab Fac Reason For Visit: SEPSIS PNEUMONIA Discharge Diagnosis: Pneumonia Activity: Resume your previous activity Activity Comment: as tolerated with PT Non-emergency contact: Primary Care Provider Call non-emergency contact if: you have any medication questions, your symptoms worsen, you have a fever and your temperature is above 101.5 Follow-up/Referrals: Daisy Luz MD [Primary Care Provider] - 06/01/24 10:30 am (appt with Irasema Patiño) Diet: Carb Consistent or DM2 Addtl Attending Provider Instructions: You were admitted to the hospital for pneumonia. You were treated with antibiotics. A discharge summary will be sent to your primary care physician to ensure continuity of care. Please bring this discharge summary with you to your next office appointment so that your provider can review it at that time. Follow-up appointments: Make a follow-up appointment with your PCP within the next week. It is very important that you follow up with them shortly after discharge from the hospital. Keep all your follow-up appointments as already scheduled. If you cannot make an appointment, notify your provider. Medications: Your medication list has been reviewed and reconciled upon discharge to ensure accuracy and continuity of care. An updated list of all your medications is included with your hospital discharge paperwork. Please review this list closely, and make note of any changes. Take your medications as instructed; do not skip a dose of your medicines. Make sure all of your doctors know every medicine you are taking (including plzi-kku-sroakez medicines, vitamins, and supplements). Call your primary care provider before taking any new medicines (including rpjj-mzr-yqofhve medicines, vitamins, and supplements), because some of these may interact with your current medications, or may make your symptoms worse. Tell your primary care provider if you cannot afford your medications. CONTACT YOUR PRIMARY CARE PROVIDER if you experience any of the following: Difficulty following your treatment plan, or difficulty taking medications CALL 911 OR GO TO THE EMERGENCY DEPARTMENT if you experience any of the following: Sudden, severe abdominal pain or nausea/vomiting Severe chest pain, or chest pain that radiates (moves) to your jaw or arm Sudden, severe shortness of breath or difficulty breathing Thank you for allowing us to participate in your care. Pending Studies at Discharge: No Stand-Alone Forms: My [facility] Skilled Items Patient informed of condition?: No DNR: No Discharge Level of Care: Acute rehab Communicable Disease: No Discharge Prognosis: Stable Lines: None Urinary Catheter: No Medications and DC Order Prescriptions: Continued aspirin 81 mg tablet,delayed release (DR/EC) 81 mg PO DAILY Qty: 30 2RF atorvastatin 80 mg tablet 80 mg PO HS Qty: 90 3RF furosemide 40 mg tablet 40 mg PO QAM Qty: 90 3RF montelukast [Singulair] 10 mg tablet 10 mg PO DAILY Qty: 90 3RF spironolactone 25 mg tablet 25 mg PO DAILY Qty: 90 3RF famotidine 40 mg tablet See Rx Instructions .ROUTE .COMPLEX Qty: 90 3RF Dose Instruction: TAKE ONE TABLET BY MOUTH EVERY DAY Rx Instructions: TAKE ONE TABLET BY MOUTH EVERY DAY metformin 500 mg tablet 500 mg PO BID Qty: 180 3RF cholecalciferol (vitamin D3) 50 mcg (2,000 unit) capsule 2,000 unit PO DAILY cyanocobalamin (vitamin B-12) 1,000 mcg capsule 1,000 mcg PO DAILY Qty: 90 0RF metoprolol succinate 50 mg tablet extended release 24 hr 50 mg PO DAILY Qty: 90 3RF (DME) ostomy supplies [Stomahesive Protective] Powder See Rx Instructions .Route Qty: 28.3 3RF Rx Instructions: Apply under L breast & in groin folds twice daily after ointment memantine 5 mg tablet 5 mg PO .COMPLEX Qty: 60 5RF Rx Instructions: 1 tab po daily x 1 week, then increase to 1 tab po BID. Discharge Orders: Discharge Order (Routine); Ordered 05/25/24 Ordered By: Bruce Hua/Other Patient Handouts: Type 2 Diabetes Admission Data Admit Date/Time: 05/20/24 10:00 Attending Provider: Abhay Powell Admit Provider: Carl Page Primary Care Provider: Daisy Luz Supervising Physician Co-Signing Physician Notes I also saw the patient for brownlee portions of the clinical history and physical examination. I agree with the impression and plan as noted in the resident documentation above. She has no complaints this morning other than some logistics of getting her clothing. Facility closer to her home has identified for short-term rehab. Impression and plan Pneumoniafinish course of antibiotics Deconditioning/weaknessrequiring SNF/rehab, pending placement today. additional per resident documentation
[2024-05-25 15:07] VITALS: BP 110/70; PULSE 66; TEMP 97.7; O2SAT 97
[2024-05-25 21:13] LABS: Pneumococcal IgG Type 1 4.5; Pneumococcal IgG Type 14 6.4; Pneumococcal IgG Type 17 (17F) <0.3; Pneumococcal IgG Type 19 (19F) <0.3; Pneumococcal IgG Type 2 7.2; Pneumococcal IgG Type 20 5.9; Pneumococcal IgG Type 22 (22F) 0.4; Pneumococcal IgG Type 23 (23F) 1.5; Pneumococcal IgG Type 26 (6B) 0.7; Pneumococcal IgG Type 3 <0.3; Pneumococcal IgG Type 34 (10A) 7.5; Pneumococcal IgG Type 4 2.3; Pneumococcal IgG Type 5 1.4; Pneumococcal IgG Type 54 (15B) 1.6; Pneumococcal IgG Type 57 (19A) 0.6; Pneumococcal IgG Type 68 (9V) <0.3; Pneumococcal IgG Type 70 (33F) 5.2; Pneumococcal IgG Type 8 0.6; Pneumococcal IgG Type 9 (9N) <0.3
== END 2024-05-25 16:32 | DRG 871 ==
LOC: 2N 14:25 → SUATTDRO 14:25